=== PATIENT | male | born 1990 | race African-American/Black ===

== ENCOUNTER 2017-12-30 21:35 | Emergency (ER) | payer OTHER ==
[~2017-12-30] VITALS: Ht 170.2 cm; Wt 59.9 kg
[2017-12-30] MEDS ORDERED: MORPHINE SULFATE INJ 4 MG/ML INJ INJ PRN (22:00)
[2017-12-30] MEDS ORDERED: BELLADONNA ALK/PHENOBARBITAL 5 ML UDC PO ONE (22:00)
[2017-12-30] MEDS ORDERED: MAGNESIUM/ALUMINUM/SIMETHICONE 30 ML UDC PO ONE (22:00)
[2017-12-30] MEDS ORDERED: ONDANSETRON HCL 4 MG ORAL DISINTEGRATING TAB PO ONE (22:00)
[2017-12-30] MEDS ORDERED: METOCLOPRAMIDE HCL 10MG/10ML UDC GT ONE (22:15)
[2017-12-31 02:28] VITALS: BP 134/79
== END 2017-12-30 23:10 | disposition home or self-care (01) ==
LOC: FSED 21:35
DX: R10.13 Epigastric pain (principal); K29.00 Acute gastritis without bleeding
CPT/HCPCS: 99282

== ENCOUNTER 2020-08-26 14:28 | Emergency (ER) | payer BC, OTHER ==
[~2020-08-26] VITALS: Ht 170.2 cm; Wt 58.5 kg
[2020-08-26] MEDS ORDERED: LIDOCAINE VISC 2% SOLN 15 ML UDC TOP ONE (15:00)
[2020-08-26] MEDS ORDERED: LIDOCAINE VISC 2% SOLN 15 ML UDC ONE (15:08)
[2020-08-26] MEDS ORDERED: PREDNISONE20 MG PO (15:14)
--- NOTE | 2020-08-26 15:14 | Emergency Department Note ---
History of Present Illnes History of Present Illness Chief Complaint: increased rectal(fissure) pain s/p colonoscopy 2 days ago. History of Present Illness This is a 30 year old male. was doing well prior to this. h/o anal fissures, gerd. Historian: Patient Arrival Mode: Car History limited by: condition of the patient (normal) Oncology Rn Required: No Onset (how long ago): day(s) (2) Location: see above Quality: sharp Radiation: Reports non-radiation Severity: moderate Onset quality: gradual Duration (how long): day(s) Timing of current episode: constant Progression: unchanged Chronicity: recurrent Context: Denies recent illness, Denies recent surgery, Denies recent immobilization, Denies recent travel, Denies trauma/injury, Denies new medications, Denies hx of DVT/PE, Denies non-compliance w/ medications Relieving factors: none Exacerbating factors: none Associated symptoms: Reports denies other symptoms Treatments prior to arrival: none Past Medical/Family History Physician Review I have reviewed the patient's past medical and family history. Any updates have been documented here. Past Medical History Recent Fever: No Clinical Suspicion of Infectio: No New/Unexplained Change in Ment: No Other Medical History: migraines ANAL FISSURES CHRONIC GERD AND GASTRITIS Past Surgical History: Hernia Repair Other Surgery: testiculat tortion (removal of l testicle) l inguinal hernia repair Social History Smoking Cessation: Former smoker Alcohol Use: None Any Illegal Drug Use: No Family History Family history of heart diseas: No Other Last Tetanus: unknown Any Pre-Existing Lines (PICC,: No Review of Systems Review of Systems Constitutional: Reports no symptoms EENTM: Reports no symptoms Cardiovascular: Reports no symptoms Respiratory: Reports no symptoms Gastrointestinal: Reports as per HPI, Reports abdominal pain Genitourinary: Reports no symptoms Musculoskeletal: Reports no symptoms Integumentary: Reports no symptoms Neurological: Reports no symptoms Psychological: Reports no symptoms Endocrine: Reports no symptoms Hematological/Lymphatic: Reports no symptoms Review of other systems: All other systems negative Physical Exam Related Data Allergies: Coded Allergies: No Known Allergies (Unverified , 12/31/17) Triage Vital Signs Vital Signs Date Time Temp Pulse Resp B/P (MAP) Pulse Ox O2 Delivery O2 Flow Rate FiO2 08/26/20 14:42 98.8 87 16 128/89 98 Room Air Vital signs reviewed: Yes Physical Exam CONSTITUTIONAL Constitutional: Present well-developed, Present well-nourished HENT HENT: Present normocephalic, Present atraumatic, Present oropharynx clear/moist, Present nose normal HENT L/R: Present left ext ear normal, Present right ext ear normal EYES Eyes: Reports PERRL, Reports conjunctivae normal NECK Neck: Present ROM normal, Present supple PULMONARY Pulmonary: Present effort normal, Present breath sounds normal CARDIOVASCULAR Cardiovascular: Present regular rhythm, Present heart sounds normal, Present capillary refill normal, Present normal rate GASTROINTESTINAL Abdominal: Present soft, Present nontender, Present bowel sounds normal, Present other (+anal fissures posterior/anterior) GENITOURINARY Genitourinary: Present exam deferred SKIN Skin: Present warm, Present dry MUSCULOSKELETAL Musculoskeletal: Present ROM normal NEUROLOGICAL Neurological: Present alert, Present oriented x 3, Present no gross motor or sensory deficits PSYCHOLOGICAL Psychological: Present mood/affect normal, Present judgement normal Assessment & Plan Medical Decision Making MDM see above Reassessment Reassessment time: 14:50 Reassessment ecrease pain s/p medication Assessment & Plan Final Impression: (1) Anal fissure Depart Disposition: HOME, SELF-CARE Last Vital Signs Date Time Temp Pulse Resp B/P (MAP) Pulse Ox O2 Delivery O2 Flow Rate FiO2 08/26/20 14:42 98.8 87 16 128/89 98 Room Air Home Meds Active Scripts Prednisone (PREDNISONE) 20 Mg Tab, 60 MG PO DAILY PRN for MODERATE PAIN (4-6), #15 TAB TAKE ALL 3 20MG PILLS AT ONCE Prov:ROSITA MARQUEZ 08/26/20 Medications in the ED Lidocaine HCl 20 ml ONCE ONCE TOP Last administered on 08/26/20at 15:02; Admin Dose 20 ML; Start 08/26/20 at 15:00; Stop 08/26/20 at 15:01; Status DC Lidocaine HCl 30 ml STK-MED ONCE .ROUTE ; Start 08/26/20 at 15:08; Stop 08/26/20 at 15:03; Status DC ROSITA MARQUEZ Aug 26, 2020 15:14
--- OUTSIDE RECORDS SUMMARY | 2020-08-26 15:26 | XMS REPORT | Clinical Summary ---
Author Author [facility] Address Unknown Phone Unavailable Care Team Providers Care Community Support Worker Name Role Phone Tu Montero MD PCP Allergies Comments Active Allergy Reactions Severity Noted Date Aspirin Swelling 05/17/2020 Sucralfate Hives 05/17/2020 Medications End Date Status Medication Sig Dispensed Refills Start Date Active traMADoL (ULTRAM) 50 mg Take 50 mg by 0 tabletIndications: acute mouth every 6 pain (six) hours as needed for moderate pain .acute pain. 09/06/2020 Active pantoprazole (Protonix) Take 1 tablet 30 tablet 0 40 MG EC tablet (40 mg total) 0 by mouth daily for 30 days. 07/30/2020 ciprofloxacin (CIPRO) 500 Take 1 tablet 28 tablet 0 MG tablet (500 mg 0 total) by mouth 2 (two) times a day for 14 days. 08/10/2020 acetaminophen-codeine Take 1-2 15 tablet 0 (TYLENOL WITH CODEINE #3) tablets by 0 300-30 mg per mouth every 6 tabletIndications: acute (six) hours pain as needed for moderate pain for up to 3 days .acute pain. Active Problems Problem Noted Date GERD (gastroesophageal reflux disease) Encounters Care Team Description Date Type Specialty Tu Montero MD Incomplete defecation (Primary Dx) 08/26/2020 Transcribe Physical Therapy Orders Michelle Cat MD 08/17/2020 Anesthesia Gastroenterology Event Cristino Stacy MD EGD WITH ZAMORA 08/17/2020 Surgery Gastroenterology Cristino Stacy MD MOTILITY STUDY, ESOPHAGUS, USING MANOMET RY 08/17/2020 Surgery Gastroenterology Cristino Stacy MD Gastroesophageal reflux disease with eso phagitis, unspecified whether hemorrhage 08/17/2020 Hospital Gastroenterology Encounter 08/17/2020 Travel Cristino Stacy MD Gastroesophageal reflux disease, unspeci fied whether esophagitis present 08/13/2020 Lab Lab 08/13/2020 Travel Aminata Tolentino RN Gastroesophageal reflux disease, unspeci fied whether esophagitis present (Primary Dx) 08/12/2020 Orders Only Gastroenterology Salvatore Vines MD Bilateral flank pain (Primary Dx) 08/07/2020 Emergency Emergency Medicine 08/07/2020 Travel 07/31/2020 Travel Juan A Salvador III, MD Acute prostatitis (Primary Dx) 07/16/2020 Emergency Emergency Medicine 07/16/2020 Travel Oscar Lopez MD Gastroesophageal reflux disease with eso phagitis without hemorrhage (Primary Dx) 07/06/2020 Office Visit General Surgery 07/06/2020 Travel Oscar Lopez MD Reflux esophagitis 06/30/2020 Hospital Radiology Encounter 06/30/2020 Travel Kayla Priest MA Reflux esophagitis (Primary Dx) 06/24/2020 Orders Only General Surgery 06/24/2020 Travel 06/09/2020 Travel Shahla Kothari Jr., MD Gastritis without bleeding, unspecified chronicity, unspecified gastritis type (Primary Dx); Abdominal pain, unspecified abdominal location 05/17/2020 Emergency Emergency Medicine 05/17/2020 Travel after 08/26/2019 Surgical History Surgery Date Site/Laterality Comments REDUCTION, TORSION, TESTIS, SURGICAL HERNIA REPAIR MOTILITY STUDY, 08/17/2020 N/A Procedure: MOT ILITY STUDY, ESOPHAGUS, USING ESOPHAGUS, USING MANOMETRY; Surgeon: Cristino Cosme MD; MANOMETRY Location: [facility]; Service: Gastroenterology; Laterality: N/A; ESOPHAGOGASTRODUODENOSCOP 08/17/2020 Esophagus/Later Pro cedure: EGD WITH ZAMORA; Surgeon: Shakila Stacy (EGD) jas Rich MD; Location: [facility]; Service: Gastroenterology; Laterality: Lateral; Medical devices from this surgery are i n the Implants section. COLONOSCOPY 08/17/2020 N/A Procedure: COLO NOSCOPY; Surgeon: Cristino Stacy MD; Location: [facility]; Service: Gastroenterology; Laterality: N/A; Medical devices from this surgery are i n the Implants section. Medical History Medical History Date Comments Gastritis Gastric ulcer Anxiety GERD (gastroesophageal reflux disease) Testicular torsion Prostatitis Social History Date Tobacco Use Types Packs/Day Years Used Quit: 11/18/2017 Former Smoker Smokeless Tobacco: Former User Drinks/Week oz/Week Comments Alcohol Use Not Currently Sex Assigned at Date Recorded Not on file Industry Job Start Date Occupation Not on file Not on file Not on file Date Recorded COVID-19 Exposure Response 08/17/2020 5:52 AM PHYSICIAN INDUSTRIAL In the last month, have you been in contact with No / Unsure someone who was confirmed or suspected to have Coronavirus / COVID-19? Last Filed Vital Signs Reading Time Taken Comments Vital Sign 127/81 08/17/2020 10:45 AM PHYSICIAN INDUSTRIAL Blood Pressure 68 08/17/2020 10:45 AM PHYSICIAN INDUSTRIAL Pulse 36.5 C (97.7 F) 08/17/2020 9:00 AM PHYSICIAN INDUSTRIAL Temperature 15 08/17/2020 10:45 AM PHYSICIAN INDUSTRIAL Respiratory Rate 99% 08/17/2020 10:45 AM PHYSICIAN INDUSTRIAL Oxygen Saturation - - Inhaled Oxygen Concentration 58.5 kg (129 lb) 08/17/2020 8:29 AM PHYSICIAN INDUSTRIAL Weight 170.2 cm (5' 7") 08/17/2020 8:29 AM PHYSICIAN INDUSTRIAL Height 20.2 08/17/2020 8:29 AM PHYSICIAN INDUSTRIAL Body Mass Index Plan of Treatment Care Team Description Date Type Specialty Oscar Lopez MD [address] [facility] [address] [place] [address] 08/31/2020 Office Visit General Surgery Tu Montero MD [address] [place] [phone] Inocencia Wright, JEAN 09/22/2020 Office Visit Physical Therapy Health Maintenance Due Date Last Done Comments INFLUENZA VACCINE 05/02/2020 Implants Device Identifier Shelf Expiration Date Model / Serial / L ot Implanted Type Area Manufactur er 06/09/2021 FGS 0312 / / [id number] Capsule Ph W/ Ds Zamora - [id number] Surgical N/A: N/A GIVEN Implanted: Qty: 1 on 08/17/2020 at Implants; FEMI GING [facility] Expanders; Extenders; Surgical Wires Procedures Comments Procedure Name Priority Date/Time Associated Diag nosis SURGICAL PATHOLOGY Routine 08/17/2020 REQUEST 8:51 AM PHYSICIAN INDUSTRIAL COLONOSCOPY 08/17/2020 Gastroesophageal re flux 8:45 AM PHYSICIAN INDUSTRIAL disease with esophagitis, unspecified whether hemorrhage ESOPHAGOGASTRODUODENOSCOP 08/17/2020 Gastroesoph ageal reflux Y (EGD) 8:45 AM PHYSICIAN INDUSTRIAL disease with esopha gitis, unspecified whether hemorrhage MOTILITY STUDY, 08/17/2020 Gastroesophageal re flux ESOPHAGUS, USING 6:24 AM PHYSICIAN INDUSTRIAL disease with esopha gitis, MANOMETRY unspecified whether hemorrhage COVID-19 QUALITATIVE PCR Routine 08/13/2020 Gastr oesophageal reflux 4:13 PM PHYSICIAN INDUSTRIAL disease, unspecified whether esophagitis present CT ABDOMEN PELVIS W STAT 08/07/2020 CONTRAST 7:27 PM PHYSICIAN INDUSTRIAL ESTIMATED GFR STAT 08/07/2020 5:54 PM PHYSICIAN INDUSTRIAL URINALYSIS SCREEN AND Routine 08/07/2020 MICROSCOPY, WITH REFLEX 5:54 PM PHYSICIAN INDUSTRIAL TO CULTURE HC COMPLETE BLD COUNT STAT 08/07/2020 W/AUTO DIFF 5:54 PM PHYSICIAN INDUSTRIAL COMPREHENSIVE METABOLIC STAT 08/07/2020 PANEL 5:54 PM PHYSICIAN INDUSTRIAL URINE CULTURE Routine 08/07/2020 5:[address] ABDOMEN PELVIS W STAT 07/16/2020 CONTRAST 7:14 PM CDT URINALYSIS SCREEN AND STAT 07/16/2020 MICROSCOPY, WITH REFLEX 6:55 PM CDT TO CULTURE URINE CULTURE STAT 07/16/2020 6:55 PM CDT ESTIMATED GFR STAT 07/16/2020 5:59 PM CDT LACTIC ACID LEVEL, SEPSIS STAT 07/16/2020 - NOW AND REPEAT 2X EVERY 5:59 PM CDT 3 HOURS COMPREHENSIVE METABOLIC STAT 07/16/2020 PANEL 5:59 PM CDT HC COMPLETE BLD COUNT STAT 07/16/2020 W/AUTO DIFF 5:59 PM CDT FL MODIFIED BARIUM Routine 06/30/2020 Reflux esop hagitis SWALLOW 10:25 AM CDT URINE CULTURE STAT 05/17/2020 3:49 PM CDT URINALYSIS SCREEN AND STAT 05/17/2020 MICROSCOPY, WITH REFLEX 3:[address] TO [address] ABDOMEN PELVIS W STAT 05/17/2020 CONTRAST 2:38 PM CDT ESTIMATED GFR STAT 05/17/2020 1:51 PM CDT LIPASE LEVEL STAT 05/17/2020 1:51 PM CDT COMPREHENSIVE METABOLIC STAT 05/17/2020 PANEL 1:51 PM CDT HC COMPLETE BLD COUNT STAT 05/17/2020 W/AUTO DIFF 1:51 PM CDT after 08/26/2019 Results * Surgical pathology request (08/17/2020 8:51 AM PHYSICIAN INDUSTRIAL) [facility] DEPARTMENT OF PATHOLOGY AND GENOMIC MEDICINE Surgical See link below for PDF Lab [facility] pathology Report DEPARTMENT OF report PATHOLOGY AND GENOMIC MEDICINE Result status This is Final Report for [facility] [id number] DEPARTMENT OF PATHOLOGY AND GENOMIC MEDICINE Specimen Performing Organization Address City/State/ZIP Code P maria del carmen Number [facility] [place] [address] [place], [place] [address] PATHOLOGY AND GENOMIC MEDICINE * COVID-19 qualitative PCR (08/13/2020 4:13 PM PHYSICIAN INDUSTRIAL) Interpretation Negative results do not CRAW[place] preclude 2019-nCoV infection [facility] and should not be used as the HOSPITAL sole basis for treatment or other patient management decisions. Negative results must be combined with clinical observations, patient history, and epidemiological information. COVID-19 Not-Detected Not-Detected GHUL[facility] qualitative PCR [facility] result HOSPITAL COVID-19 See link below for PDF Lab [facility] qualitative PCR ReportComment: Case Number: [facility] [id number] HOSPITAL Specimen Nasopharyngeal swab Performing Organization Address [facility]/ZIP Code P maria del carmen Number [facility] DEPARTMENT OF [address] [place] [address] PATHOLOGY AND GENOMIC MEDICINE [facility] [address] [place] [address] [facility] * CT Abdomen Pelvis W Contrast (08/07/2020 7:27 PM PHYSICIAN INDUSTRIAL) Only the most recent of 3 results within the time period is included. Specimen Narrative Performed At EXAMINATION: CT ABDOMEN PELVIS W CONTRAST RAD[facility] NT CLINICAL HISTORY: abd pain TECHNIQUE: Multiple axial images of the abdomen and pelvis were obtained following intravenous administration of iodinated contrast. Sagittal and coronal computerized reformatted images were al so obtained. Radiation dose reduction technique was utilized. COMPARISON: 07/16/2020 IMPRESSION: Abdomen: 1. Liver, spleen, pancreas, adrenals, a nd kidneys are normal. 2.There is no retroperitoneal adenopath y or ascites. 3.There are no dilated or thickened loo ps of bowel. 4.Scans through the lung bases are norm al. Pelvis: 1. Again, the appendix is not clearly v isualized. No right lower quadrant inflammatory process is seen. 2.No pelvic mass, adenopathy, or fluid collection. [facility]-[id number] Procedure Note Hm Interface, Radiology Results Incoming - 08/07/2020 7:46 PM PHYSICIAN INDUSTRIAL EXAMINATION: CT ABDOMEN PELVIS W CONTRAST CLINICAL HISTORY: abd pain TECHNIQUE: Multiple axial images of the abdomen and pelvis were obtained following intravenous administration of iodinated contrast. Sagittal and coronal computerized reformatted images were also obtained. Radiation dose reduction technique was utilized. COMPARISON: 07/16/2020 IMPRESSION: Abdomen: 1. Liver, spleen, pancreas, adrenals, an d kidneys are normal. 2.There is no retroperitoneal adenopathy or ascites. 3.There are no dilated or thickened loop s of bowel. 4.Scans through the lung bases are mary l. Pelvis: 1. Again, the appendix is not clearly vi sualized. No right lower quadrant inflammatory process is seen. 2.No pelvic mass, adenopathy, or fluid c ollection. [facility]-[id number] Performing Organization Address [facility]/ZIP Code P maria del carmen Number [facility] [address] [place] [address] * Urinalysis screen and microscopy, with reflex to culture (08/07/2020 5:54 PM PHYSICIAN INDUSTRIAL) Only the most recent of 3 results within the time period is included. Specimen site Clean catch [facility] Color, UA Yellow [facility] Appearance, UA Clear [facility] Specific 1.023 1.001 - 1.030 [facility] gravity, UA [facility] pH, UA 6.0 5.0 - 9.0 [facility] Protein, UA Negative Negative [facility] Glucose, UA Negative Negative [facility] Ketones, UA Negative Negative [facility] Bilirubin, UA Negative Negative [facility] Blood, UA Negative Negative [facility] Nitrite, UA Negative Negative [facility] Urobilinogen, <2.0 <2.0 E.U./dL [facility] Leukocyte Negative Negative [facility] esterase, UA [facility] WBC, UA 1 0 - 1 /HPF [facility] RBC, UA 2 0 - 5 /HPF [facility] Bacteria, UA None seen None seen [facility] Yeast, UA None seen [facility] Yeast with None seen [facility] Specimen Urine Performing Organization Address [facility] P maria del carmen Number [address] [address] PATHOLOGY AND GENOMIC MEDICINE [facility] [id number] [place] [address] [facility] * Estimated GFR (08/07/2020 5:54 PM PHYSICIAN INDUSTRIAL) Only the most recent of 3 results within the time period is included. Estimated GFR >=90 mL/min/1.73 m2 [facility] Comment: [facility] Interpretation G1 >=90 Normal or high G2 60-89 Mildly decreased G3a 45-59 Mildly to moderately decreased G3b 30-44 Moderately to severely decreased G4 15-29 Severely decreased G5 <15 Kidney failure The eGFR was calculated using the Chronic Kidney Disease Epidemiology Collaboration (CKD-EPI) equation. Interpretation is based on recommendations of the National Kidney Foundation-Kidney Disease Outcomes Quality Initiative (NKF-KDOQI) published in 2014. Specimen Plasma Performing Organization Address City/State/ZIP Code P maria del carmen Number [address] [place], [place] [address] PATHOLOGY AND [facility] [id number] [place] [address] * CBC with platelet and differential (08/07/2020 5:54 PM PHYSICIAN INDUSTRIAL) Only the most recent of 3 results within the time period is included. WBC 5.1 4.5 - 11.0 k/uL [facility] RBC 4.54 4.40 - 6.00 m/uL [facility] HGB 14.1 14.0 - 18.0 g/dL [facility] HCT 41.0 41.0 - 51.0 % [facility] MCV 90.3 82.0 - 100.0 fL [facility] MCH 31.1 27.0 - 34.0 pg [facility] MCHC 34.4 31.0 - 37.0 g/dL [facility] RDW - SD 39.6 37.0 - 55.0 fL [facility] MPV 8.9 6.9 - 11.0 fL [facility] Platelet count 282 150 - 400 K/uL [facility] Nucleated RBC 0.00 /100 WBC [facility] Neutrophils 51.0 39.0 - 69.0 % [facility] Lymphocytes 36.1 25.0 - 45.0 % [facility] Monocytes 10.5 (H) 0.0 - 10.0 % [facility] Eosinophils 1.6 0.0 - 5.0 % [facility] Basophils 0.6 0.0 - 1.0 % [facility] Immature 0.2 0.0 - 1.0 % [facility] granulocytes [facility] Specimen Plasma Performing Organization Address City/State/ZIP Code P maria del carmen [place] [facility] [place] [place] [address] [place], [place] [address] PATHOLOGY AND [facility] [address] * Urine culture (08/07/2020 5:54 PM PHYSICIAN INDUSTRIAL) Only the most recent of 3 results within the time period is included. Urine culture SEE COMMENTComment: [facility] Bacteriuria screen negative. [facility] Specimen Performing Organization Address [facility] P maria del carmen Number [place] [phone] PATHOLOGY AND GENOMIC MEDICINE [address] * Comprehensive metabolic panel (08/07/2020 5:54 PM PHYSICIAN INDUSTRIAL) Only the most recent of 3 results within the time period is included. Sodium 135 135 - 148 mEq/L [facility] Potassium 3.6 3.5 - 5.0 mEq/L [facility] Chloride 98 98 - 112 mEq/L [facility] CO2 27 24 - 31 mEq/L [facility] Anion gap 10@ANIO 7 - 15 mEq/L [facility] BUN 15 6 - 20 mg/dL [facility] Creatinine 0.94 0.70 - 1.20 mg/dL [facility] Glucose 129 (H) 65 - 99 mg/dL [facility] Calcium 9.6 8.3 - 10.2 mg/dL [facility] Protein 7.3 6.3 - 8.3 g/dL [facility] Albumin 4.4 3.5 - 5.0 g/dL [facility] A/G ratio 1.5 0.7 - 3.8 [facility] Alkaline 73 40 - 129 U/L [facility] phosphatase [facility] AST 21 10 - 50 U/L [facility] ALT 19 5 - 50 U/L [facility] Total bilirubin 0.3 0.2 - 1.2 mg/dL [facility] Specimen Plasma Performing Organization Address [facility] P maria del carmen Number [place] [phone] PATHOLOGY AND GENOMIC MEDICINE [address] * Lactic acid level, SEPSIS - Now and repeat 2x every 3 hours (07/16/2020 5:59 PM CDT) Lactic acid 1.6 0.5 - 2.2 mmol/L [facility] Specimen Blood Performing Organization Address City/State/ZIP Code P maria del carmen Number [facility] [place] [address] [place], [place] [address] PATHOLOGY AND GENOMIC MEDICINE [facility] [address] [place] [address] [facility] * [place] Modified Barium Swallow (06/30/2020 10:25 AM CDT) Specimen Narrative Performed At EXAMINATION: [place] MODIFIED BARIUM SWALLOW [facility] CLINICAL HISTORY: K21.0 Gastro-esopha geal reflux disease with esophagitis, Esophageal reflux COMPARISON: None. TECHNIQUE: Esophagram was performed w ith effervescent granules and barium, as well as requested marshmallow and bagel consistencies in prone/ADORNO positioning. Fluoroscopy Time: 3.3 min Dose: 12 mGy IMPRESSION: 1. Swallow: Primary peristalsis is no rmal, with only a few disordered tertiary contractions. Esophagus was distensible . The mucosa and motility were within normal limits. There is no evidence of stricture. 2. Gastroesophageal junction: No evid ence of hiatal hernia. No radiographically apparent reflux with R AO positioning, or provocative cough/possible maneuvers. 3. Visualized portions of the stomach and proximal small bowel unremarkable. [id number] Procedure Note Interface, Radiology Results Incoming - 06/30/2020 11:34 AM CDT EXAMINATION: [place] MODIFIED BARIUM SWALLOW CLINICAL HISTORY: K21.0 Gastro-esophageal reflux disease with esophagitis, Esophageal reflux COMPARISON: None. TECHNIQUE: Esophagram was performed with effervescent granules and barium, as well as requested marshmallow and bagel consistencies in prone/ADORNO positioning. Fluoroscopy Time: 3.3 min Dose: 12 mGy IMPRESSION: 1. Swallow: Primary peristalsis is norm al, with only a few disordered tertiary contractions. Esophagus was distensible. The mucosa and motility were within normal limits. There is no evidence of stricture. 2. Gastroesophageal junction: No eviden ce of hiatal hernia. No radiographically apparent reflux with ADORNO positioning, or provocative cough/possible maneuvers. 3. Visualized portions of the stomach a nd proximal small bowel unremarkable. [id number] Performing Organization Address City/State/ZIP Code P maria del carmen Number [facility] [address] [place] [address] * Lipase level (05/17/2020 1:51 PM CDT) Lipase 31 13 - 60 U/L [facility] Specimen Blood Performing Organization Address City/State/ZIP Code P maria del carmen Number [facility] [place] [address] [facility] [place], [place] [address] PATHOLOGY AND GENOMIC MEDICINE [facility] [address] [facility] [place] [address] [facility] after 08/26/2019 Insurance Type Payer Benefit Subscriber ID Effective Phone Address Plan / Dates Group HMO BCBS [employer] [id number] 2020-P CT IN resent AREA/O BLUE ESSENTIALS Advance Directives For more information, please contact: [phone] Patient Sales Contracts Analyst Explanation Type Date Recorded Advance Directives, 02/15/2018 1:58 AM Living Will and Medical Power of Mail Clerks Supervisor
--- OUTSIDE RECORDS SUMMARY | 2020-08-26 15:27 | XMS REPORT | Clinical Summary ---
Author Author SHELLIE [facility] Address Unknown Phone Unavailable Care Team Providers Care Resident Intern Name Role Phone Sharpless PCP Allergies Comments Active Allergy Reactions Severity Noted Date Aspirin 06/25/2020 Sucralfate 06/25/2020 Hydrocodone Nausea And 05/25/2014 Vomiting Shellfish Containing Rash Low 5 Products Medications End Date Status Medication Sig Dispensed Refills Start Date 06/25/2020 Discontinued ranitidine (ZANTAC) 150 . 0 201 MG tablet 8 06/25/2020 Discontinued dicyclomine (BENTYL) 20 . 0 201 mg tablet 8 07/09/2020 omeprazole (PRILOSEC) 40 Take 1 28 capsule 0 0 MG capsule capsule (40 0 mg total) by mouth 2 (two) times daily for 14 days. Active Problems Not on file Encounters Care Team Description Date Type Specialty Channing Patiño III, DO Chronic GERD (Primary Dx) 06/25/2020 Emergency Emergency Medicine 06/25/2020 Travel after 08/26/2019 Social History Date Tobacco Use Types Packs/Day Years Used Former Smoker 0.5 2.5 Smokeless Tobacco: Never Used Tobacco Cessation: Ready to Quit: No; Co unseling Given: Yes Drinks/Week oz/Week Comments Alcohol Use No Sex Assigned at Date Recorded Not on file Last Filed Vital Signs Reading Time Taken Comments Vital Sign 138/96 06/25/2020 8:53 PM CDT Blood Pressure 69 06/25/2020 8:53 PM CDT Pulse 36.3 C (97.3 F) 06/25/2020 8:53 PM CDT Temperature 18 06/25/2020 8:53 PM CDT Respiratory Rate 98% 06/25/2020 8:53 PM CDT Oxygen Saturation - - Inhaled Oxygen Concentration 56.7 kg (125 lb) 06/25/2020 8:53 PM CDT Weight 170.2 cm (5' 7") 06/25/2020 8:53 PM CDT Height 19.58 06/25/2020 8:53 PM CDT Body Mass Index Plan of Treatment Health Maintenance Due Date Last Done Comments INFLUENZA VACCINE (#1) 2020 Results Not on fileafter 08/26/2019 Insurance Type Payer Benefit Subscriber ID Effective Phone Address Plan / Dates Group HMO/POS BLUE CROSS/BLUE SHIELD BCBS HMO [id number] 2020-P [address] [place] [phone]
--- OUTSIDE RECORDS SUMMARY | 2020-08-26 15:27 | XMS REPORT | Continuity of Care Document ---
Author Author Orville Fred OSCAR Harman Organization [employer] Address Unknown Phone Unavailable Care Team Providers Care Securities Vault Supervisor Name Role Phone [employer] Unavailable Un available Problems Problem Status Onset Date Classification Date Reported Comments Source Other specified diseases of anus and rectum 08/09/2020 08/12/2020 [facility] BLADDER ISSUES Active 08/09/2020 [facility] Fred PELVIC Active 07/08/2020 [facility] [place] Acute pharyngitis, unspecified 05/20/2020 05/22/2020 [facility] OTHER Active 05/20/2020 [facility] Unspecified abdominal pain 05/10/2020 05/12/2020 [place],[facility] Acute gastritis without bleeding 05/10/2020 05/12/2020 [facility] CHEST PAIN Active 05/10/2020 [facility] Tinea unguium 09/11/2019 09/13/2019 [place] NAUSEA Active 09/11/2019 [facility] Cellulitis of right toe 09/04/2019 09/06/2019 [facility] FOOT PAIN Active 09/04/2019 [facility] Other chest pain 06/12/2019 06/14/2019 [facility] Scrotal pain 04/07/2018 04/10/2018 [facility] KIDNEY PAIN/ PELVIC Active 04/07/2018 [facility] Fred ABDOMINAL PAIN Active 03/23/2018 [place] Headache 04/07/2018 [place] ABD PAIN Active 12/30/2017 [place] PELVIC PAIN Active 01/05/2016 [place] NECK PAIN Active 07/11/2014 [facility] Discharge Diagnosis: Muscle spasm 07/11/2014 07/14/2014 [facility] Discharge Diagnosis: Acute neck pain 07/11/2014 07/14/2014 [facility] WEAKNESS Active 02/14/2013 [facility] WOUND CHECK Active 11/19/2012 [facility] ABSCESS Active 11/15/2012 [facility] SPIDER BITE ON RT THIGH,HEADACHES Active 02/08/2012 [facility] TOOTH PAIN Active 08/29/2011 [facility] Kidney stone (disorder) Resolv ed Problem [facility] ,[facility] Migraine (disorder) Resolved Problem 08/24/2020 [facility] ,[facility], [facility] Upper abdominal pain, unspecified 04/07/2018 [facility] Gastroesophageal reflux disease with eso phagitis (disorder) Resolved Pr oblem 08/24/2020 [facility] Medications Medication Details Route Status Patient Instructions Ordering Provider Order Date Source POLYETHYLENE GLYCOL 3350 142 MG/ML Oral Solution [Miralax] 17 gm, PO, Daily, dissolve in water or j uice 8 0z, X 15 day, # 255 gm, 0 Refill(s), Pharmacy: [facility] #[id number], 170.18, cm, 08/11/20 15:27:00 [employer], Height, 58.636, kg, 08/11/20 15:27:00 [employer], Weight Active 08/11/2020 [facility] Docusate Sodium 100 MG Oral Capsule 100 mg = 1 cap, PO, BID, # 60 cap, 0 Refill(s), Pharmacy: [facility] #[id number], 170.18, cm, 08/11/20 15:27:00 [employer], Height, 58.636, kg, 08/11/20 15:27:00 [employer], Weight Active 08/11/2020 [facility] Famotidine 20 MG Oral Tablet [Pepcid] 20 mg = 1 tab, PO, BID, # 28 tab, 0 Refill(s) Active 08/10/2020 [facility] ciprofloxacin 500 mg oral tablet 500 mg = 1 tab, PO, Q12H, X 10 day, # 20 tab, 0 Refill(s), 170.18, cm, 08/09/20 18:02:00 [employer], Height, 54.6, kg, 08/09/20 18:02:00 [employer], Weight Active 08/10/2020 [facility] Metronidazole 500 MG Oral Tablet [Flagyl] 500 mg = 1 tab, PO, Q8H, X 10 day, # 30 tab, 0 Refill(s), 170.18, cm, 08/09/20 18:02:00 [employer], Height, 54.6, kg, 08/09/20 18:02:00 [employer], Weight Active 08/10/2020 [facility] tramadol hydrochloride 50 MG Oral Tablet 50 mg = 1 tab, PO, Q6H, X 5 day, # 12 tab, 0 Refill(s) Active 08/10/2020 [facility] Morphine Notes: (Same as:MORPh ine Sulfate) Inactive 08/10/2020 [facility] Zofran Notes: (Same as: Zofran ) MEDICATION WASTE Product Size: 4 mg Product Wasted: ___ mg Inactive 08/10/2020 [facility] Sodium Chloride 0.9% (Bolus) IV 1,000 mL, 1000 ml/hr, Infuse Over: 1 hr, Route: IV, 1,000, Drug form: INJ, ONCE, Priority: STAT, Dosing Weight 54.6 kg, Start date: 08/09/20 21:36:00 [employer], Stop date: 08/09/20 21:36:00 [employer]ER, 0 Inactive 08/10/2020 [facility] Hydrocortisone 25 MG/ML Topical Cream [Anusol HC] 1 appl, [place], BID, X 14 day, # 30 gm, 0 Refill(s), Pharmacy: [facility] #[id number], 170.18, cm, 07/08/20 11:35:00 CDT, Height, 56.818, kg, 07/08/20 11:35:00 CDT, Weight Active 07/08/2020 [facility] ciprofloxacin 500 mg oral tablet 500 mg = 1 tab, PO, Q12H, # 14 tab, 0 Refill(s) Active 07/08/2020 [facility] tramadol hydrochloride 50 MG Oral Tablet 50 mg = 1 tab, PO, Q6H, PRN Pain, # 40 tab, 0 Refill(s) Active 07/08/2020 [facility] Fluzone Preservative-Free Quadrivalent i ntramuscular suspension / = 9 years; refer to adult dosing Inactive 06/15/2020 [facility] pantoprazole 40 mg oral enteric coated tablet 0 Refill(s) Active 06/15/2020 [facility] Famotidine 40 MG Oral Tablet 0 Refill(s) Active 06/15/2020 [facility] Famotidine 20 MG Oral Tablet 2 0 mg = 1 tab, PO, BID, # 28 tab, 0 Refill(s) Active 05/20/2020 [facility] omeprazole 40 mg oral delayed release capsule 40 mg = 1 cap, PO, BID, # 60 cap, 1 Refill(s), Pharmacy: [facility] #[id number], 165.1, cm, 05/15/20 11:23:00 CDT, Height, 57.017, kg, 05/15/20 11:23:00 CDT, Weight Active 05/15/2020 [facility] dicyclomine 20 mg oral tablet 20 mg = 1 tab, PO, TID- Before Meals, # 30 tab, 0 Refill(s), Pharmacy: [facility] #[id number], 165.1, cm, 05/15/20 11:23:00 CDT, Height, 57.017, kg, 05/15/20 11:23:00 CDT, Weight Active 05/15/2020 [facility] omeprazole 40 mg oral delayed release capsule ce, PO, Daily, # 30 cap, 0 Refill(s) Inactive 05/15/2020 [facility] cimetidine 400 mg oral tablet 400 mg = 1 tab, PO, BID, # 180 tab, 0 Refill(s) Active 05/15/2020 [facility] Famotidine 40 MG Oral Tablet [Pepcid] 40 mg = 1 tab, PO, Daily, # 30 tab, 0 Refill(s) Active 05/10/2020 [facility] Al hydroxide/Mg hydroxide/simethicone Notes: (aluminum hydroxide-magnesium hyd-simethicone [phone]/5ml 30 ml ud LISSA) Inactive 05/10/2020 [facility] Xylocaine Viscous 2% mucous membrane solution Notes: (Same as: Xylocaine) Inactive 05/10/2020 [facility] GI cocktail (aluminum hydroxide/magnesiu m hydroxide/lidocaine/simethicone) 45 mL, Route: PO, Dosing Weight 68.182, kg, ONCE, STAT, Start date: 05/10/20 17:25:00 CDT, Stop date: 05/10/20 17:25:00 CDT Inactive 05/10/2020 [facility] Pepcid Notes: (Same as: Pepcid ) Can be dilute in 5-10cc NS IVP: Slow IV push over at least 2 minutes. Inactive 05/10/2020 [facility] Bentyl Notes: (Same as: Bentyl) Inactive 05/10/2020 [facility] Zofran Notes: (Same as: Zofran ) MEDICATION WASTE Product Size: 4 mg Product Wasted: ___ mg Inactive 05/10/2020 [facility] Al hydroxide/Mg hydroxide/simethicone Notes: (aluminum hydroxide-magnesium hyd-simethicone [phone]/5ml 30 ml ud LISSA) Inactive 05/10/2020 [facility] Xylocaine Viscous 2% mucous membrane solution Notes: (Same as: Xylocaine) Inactive 05/10/2020 [facility] GI cocktail (aluminum hydroxide/magnesiu m hydroxide/lidocaine/simethicone) 45 mL, Route: PO, Dosing Weight 62.727, kg, ONCE, STAT, Start date: 05/10/20 16:43:00 CDT, Stop date: 05/10/20 16:43:00 CDT Inactive 05/10/2020 [facility] Ibuprofen 600 mg, Route: PO, O NCE, Dosing Weight 62.727, kg, Priority: STAT, Start date: 09/11/19 12:39:00 [employer] ENGINEER, Stop date: 09/11/19 12:39:00 [employer]INEER Inactive 09/11/2019 [facility] Fluconazole 150 MG Oral Tablet [Diflucan] 150 mg = 1 tab, PO, qWeek, 150 mg once weekly for four weeks, # 4 tab, 0 Refill(s) Active 09/04/2019 [facility] Cephalexin 500 MG Oral Capsule [Keflex] 500 mg = 1 cap, PO, BID, X 7 day, # 14 cap, 0 Refill(s) Active 09/04/2019 [facility] cyclobenzaprine 10 mg oral tablet 10 mg = 1 tab, PO, TID, PRN for spasms, X 10 day, # 30 tab, 0 Refill(s) Active 06/12/2019 [facility] Sodium Chloride 0.9% (Bolus) IV 1,000 mL, Infuse Over: 1 hr, Route: IV, ONCE, Priority: STAT, Dosing Weight 63.636 kg, Start date: 06/12/19 14:28:00 CDT, Stop date: 06/12/19 14:28:00 CDT Inactive 06/12/2019 [facility] Acetaminophen 650 mg, Route: P O, Drug form: TAB, ONCE, Dosing Weight 63.636, kg, Priority: STAT, Start date: 06/12/19 14:28:00 CDT, Stop date: 06/12/19 14:28:00 CDT Inactive 06/12/2019 [facility] tramadol hydrochloride 50 MG Oral Tablet 50 mg = 1 tab, PO, Q6H, PRN Pain, X 10 day, # 40 tab, 0 Refill(s) Active 04/08/2018 [facility] Fentanyl Notes: (Same as: Subl imaze) Preservative free. Inactive 04/08/2018 [facility] Ondansetron Notes: (Same as: Nancy myles) MEDICATION WASTE Product Size: 4 mg Product Wasted: ___ mg Inactive 04/07/2018 [facility] Ketorolac 4 days MEDICA TION WASTE Product Size: 30 mg Product Wasted: ___ mg Inactive 04/07/2018 [facility] Saline Flush 0.9% Notes: (Same as: BD Posiflush) Inactive 04/07/2018 [facility] Sodium Chloride 0.9% (Bolus) IV 1,000 mL, 1000 ml/hr, Infuse Over: 1 hr, Route: IV, 1,000, Drug form: INJ, ONCE, Priority: STAT, Dosing Weight 61.364 kg, Start date: 04/07/18 17:56:00 CDT, Stop date: 04/07/18 17:56:00 CDT Inactive 04/07/2018 [facility] tramadol hydrochloride 50 MG Oral Tablet 50 mg = 1 tab, PO, Q6H, PRN Pain, X 10 day, # 40 tab, 0 Refill(s) Active 04/06/2018 [facility] pantoprazole 40 mg oral enteric coated tablet 40 mg = 1 tab, PO, Daily, # 90 tab, 1 Refill(s), Pharmacy: [id number] Active 02/23/2018 [facility] benzonatate 200 MG Oral Capsule [Tessalon] 200 mg = 1 cap, PO, TID, X 7 day, # 21 cap, 0 Refill(s), Pharmacy: [facility] [id number] Active 02/23/2018 [facility] Fluticasone propionate 0.05 MG/ACTUAT Me tered Dose Nasal [place] [Flonase] 1 spray, NASAL, BID, in each nostril, # 16 gm, 1 Refill(s), Pharmacy: [facility] [id number] Active 02/23/2018 [facility] Ranitidine 150 MG Oral Tablet 150 mg = 1 tab, PO, BID, # 60 tab, 0 Refill(s) Active 02/23/2018 [facility] pantoprazole 40 mg oral enteric coated tablet 40 mg = 1 tab, PO, Daily, # 30 tab, 0 Refill(s) Inactive 02/23/2018 [facility] dicyclomine 20 mg oral tablet 40 mg = 2 tab, PO, BID, 0 Refill(s) Active 02/23/2018 [facility] tramadol hydrochloride 50 MG Oral Tablet 50 mg = 1 tab, PO, Q6H, PRN Pain, # 40 tab, 0 Refill(s) Active 02/23/2018 [facility] Reglan Notes: (Same as: Almas) No Longer Active 12/31/2017 [facility] Sodium Chloride 0.9% (Bolus) IV 1,000 mL, 1000 ml/hr, Infuse Over: 1 hr, Route: IV, 1,000, Drug form: INJ, ONCE, Priority: STAT, Dosing Weight 62.727 kg, Start date: 12/30/17 19:32:00 CDT, Stop date: 12/30/17 19:32:00 CDT No Longer Active 12/31/2017 [facility] Cyclobenzaprine hydrochloride 10 MG Oral Tablet [Flexeril] 10 mg, PO, TID, Muscle Spasm, # 30 tab, 0 Refill(s) Active 07/11/2014 [facility] Ibuprofen 600 MG Oral Tablet [Motrin] Special Instructions: take with food Active 07/11/2014 [facility] Zofran ODT 4 mg oral tablet, disintegrating 4 mg, 1 tab, PO, BID, PRN, Dissolve tab under tongue, 10 tab, Nausea and Vomiting, Substitution AllowedDissolve tab under tongue PO Active Vake y 02/14/2013 [facility] Sodium Chloride 0.9% (Bolus) IV 1000 mL 1,000 mL, Rate: 1,000 ml/hr, Infuse over: 1 hr, Route: IV, Dosing Weight 65.909 kg, Total Volume: 1,000, Priority: STAT, Start date: 02/14/13 13:28:00, Duration: 1 doses or times, Stop date: 02/14/13 14:27:00 IV No Longer Active [facility] 02/14/2013 [facility] Saline Flush 0.9% 5 mL, Route: IVP, Drug Form: INJ, Dosing Weight 65.909, kg, PRN, PRN Line Flush, Start date: 02/14/13 13:28:00, Duration: 24 hr, Stop date: 02/15/13 13:27:00 IVP No Longer Active [facility] 02/14/2013 [facility] ondansetron 4 mg, Route: IVP, ONCE, Dosing Weight 65.909, kg, Priority: STAT, Start date: 02/14/13 13:28:00, Stop date: 02/14/13 13:28:00 IVP No Longer Active [facility] 02/14/2013 [facility] Ultram 50 mg oral tablet 100 m g, 2 tab, PO, Q6H, PRN, 20 tab, pain, Substitution Allowed PO Active Leonidas aguilar 11/15/2012 [facility] Bactrim oral tablet 1 tab, PO, BID, 20 tab, Substitution Allowed, Maintenance PO Active Porfirio 11/15/2012 [facility] [place] 5/325 oral tablet 2 tab, Route: PO, Dosing Weight 65.909, kg, ONCE, STAT, Start date: 11/15/12 14:08:00, Stop date: 11/15/12 14:08:00 PO No Longer Active [facility] 11/15/2012 [facility] [place] 5/325 oral tablet 1-2 ta b, PO, Q4-6H, PRN, 12 tab, Pain, Substitution Allowed, Maintenance PO Active Tona amayao 02/12/2012 [facility] Ce [facility]ter [place] 5/325 oral tablet 1 tab, PO, Q4H, PRN, 10 tab, for pain, Substitution Allowed, Maintenance, TAB PO Active [facility] 02/09/2012 [facility] Bactrim DS oral tablet 1 tab, PO, BID, 14 tab, Substitution Allowed, Maintenance PO Active [facility] 02/09/2012 [facility] Ce [facility]ter amoxicillin 500 mg oral capsule 500 mg, 1 cap, PO, BID, 14 cap, Substitution Allowed, CAP PO No Longer Active Scott 08/30/2011 [facility] Unknown Home Medication Substi tution Allowed, AntibioticsAntibiotics Active 08/30/2011 [facility] [place] 5/325 oral tablet 1 tab, PO, Q4H, PRN, 15 tab, for pain, Substitution Allowed, Maintenance, TAB PO Active Scott 08/30/2011 [facility] ntrussell [place] 5/325 oral tablet 2 tab, Route: PO, Drug Form: TAB, ONCE, Start date: 08/30/11 4:55:00, Stop date: 08/30/11 4:55:00 PO No Longer Active [facility] 2010 [facility] Allergies, Adverse Reactions, Alerts Substance Category Reaction Severity Reaction type Status Date Reported Comments Source Carafate<sup>1</sup> Assertion Mild Drug allergy Active [facility] aspirin Assertion Drug allergy Active [facility] Food Eggs Assertion Food allergy Active [facility] Immunizations Immunization Date Given Site Status Last Updated Comments Source influenza virus vaccine, inactivated<sup>1</sup> 06/15/2020 Right Deltoid completed [place] Result Comment: Patient waited 15 minutes in the office with no reactions. [facility] Results Order Name Results Value Reference Range Date Interpretation Comments Source CHEM PANEL Glucose Lvl 83 70 - 99 08/10/2020 [place] CHEM PANEL BUN 13 7 - 22 08/10/2020 [place] CHEM PANEL Creatinine Lvl 0.94 0.50 - 1.40 08/10/2020 [place] CHEM PANEL Sodium Lvl 138 135 - 145 08/10/2020 [place] CHEM PANEL Potassium Lvl 4.0 3.5 - 5.1 08/10/2020 [place] CHEM PANEL Chloride Lvl 102 95 - 109 08/10/2020 [place] CHEM PANEL CO2 32 24 - 32 08/10/2020 [place] CHEM PANEL Calcium Lvl 9.3 8.5 - 10.5 08/10/2020 [place] CHEM PANEL Total Protein 7.8 6.4 - 8.4 08/10/2020 [place] CHEM PANEL Albumin Lvl 3.8 3.5 - 5.0 08/10/2020 [place] CHEM PANEL ALT 24 0 - 65 08/10/2020 [place] CHEM PANEL AST 15 0 - 37 08/10/2020 [place] CHEM PANEL Alk Phos 71 39 - 136 08/10/2020 [place] CHEM PANEL Bili Total 0.2 0.2 - 1.3 08/10/2020 [facility] [place] CHEM PANEL AGAP 8.0 10.0 - 20.0 08/10/2020 [facility] CHEM PANEL B/C Ratio 14 6 - 25 08/10/2020 [facility] CHEM PANEL Globulin 4.0 2.7 - 4.2 08/10/2020 [facility] CHEM PANEL A/G Ratio 1.0 0.7 - 1.6 08/10/2020 [facility] CHEM PANEL eGFR 125 08/10/2020 Result Comment: The eGFR is calculated using the CKD-EPI formula. In most young, healthy individuals the eGFR will be >90 mL/min/1.73m2. The eGFR declines with age. An eGFR of 60-89 may be normal in some populations, particularly the elderly, for whom the CKD-EPI formula has not been extensively validated. Use of the eGFR is not recommended in the following populations:

Individuals with unstable creatinine concentrations, including patients and those with serious co-morbid conditions.

Patients with extremes in muscle mass or diet.

The data above are obtained from the National Kidney Disease Education Program (NKDEP) which additionally recommends that when the eGFR is used in patients with extremes of body mass index for purposes of drug dosing, the eGFR should be multiplied by the estimated BMI. [facility] CHEM PANEL Lipase Lvl 135 73 - 393 08/10/2020 [facility] HEMATOLOGY WBC 4.0 3.7 - 10.4 08/10/2020 [facility] HEMATOLOGY RBC 4.60 4.70 - 6.10 08/10/2020 [facility] HEMATOLOGY Hgb 14.4 14.0 - 18.0 08/10/2020 [facility] HEMATOLOGY Hct 42.0 42.0 - 54.0 08/10/2020 [facility] HEMATOLOGY MCV 91.4 80.0 - 94.0 08/10/2020 [facility] HEMATOLOGY MCH 31.4 27.0 - 31.0 08/10/2020 [facility] HEMATOLOGY MCHC 34.4 32.0 - 36.0 08/10/2020 [facility] HEMATOLOGY RDW 13.3 11.5 - 14.5 08/10/2020 [facility] HEMATOLOGY Platelet 267 133 - 450 08/10/2020 [facility] HEMATOLOGY MPV 6.6 7.4 - 10.4 08/10/2020 [facility] HEMATOLOGY Segs 33.8 45.0 - 75.0 08/10/2020 [facility] HEMATOLOGY Lymphocytes 47.0 20.0 - 40.0 08/10/2020 [facility] HEMATOLOGY Monocytes 15.2 2.0 - 12.0 08/10/2020 [facility] HEMATOLOGY Eosinophils 3.2 0.0 - 4.0 08/10/2020 [facility] HEMATOLOGY Basophils 0.8 0.0 - 1.0 08/10/2020 [facility] HEMATOLOGY Neutrophils # 1.3 1.5 - 8.1 08/10/2020 [facility] HEMATOLOGY Lymphocytes # 1.9 1.0 - 5.5 08/10/2020 [facility] HEMATOLOGY Monocytes # 0.6 0.0 - 0.8 08/10/2020 [facility] HEMATOLOGY Eosinophils # 0.1 0.0 - 0.5 08/10/2020 [facility] URINE AND STOOL UA Color Yellow *NA* (08/09/20 8:36 PM) Yellow 08/10/2020 [facility] URINE AND STOOL UA Turbidity Clear (08/09/20 8:36 PM) Clear 08/10/2020 [facility] URINE AND STOOL UA Spec Grav 1.019 <=1.030 08/10/2020 [facility] URINE AND STOOL UA pH 6.0 5.0 - 8.0 08/10/2020 [facility] URINE AND STOOL UA Protein Negative mg/dL Negative mg/dL 08/10/[facility]A Glucose Negative mg/dL Negative mg/dL 08/10/2020 [facility] URINE AND STOOL UA Ketones Negative mg/dL Negative mg/dL 08/10/2020 [facility] URINE AND STOOL UA Bili Negative *NA* (08/09/20 8:36 PM) Negative 08/10/2020 [facility] URINE AND STOOL UA Blood Negative (08/09/20 8:36 PM) Negative 08/10/2020 [facility] URINE AND STOOL UA Nitrite Negative (08/09/20 8:36 PM) Negative 08/10/2020 [facility] URINE AND STOOL UA Leuk Est Negative (08/09/20 8:36 PM) Negative 08/10/2020 [facility] URINE AND STOOL UA Sq Epi Occasional /LPF Few /LPF 08/10/2020 [facility] URINE AND STOOL UA WBC 1 0 - 5 08/10/2020 [facility] URINE AND STOOL UA RBC 1 0 - 2 08/10/2020 [facility] URINE AND STOOL UA Mucus Few /LPF None Seen /LPF 08/10/2020 [facility] URINE AND STOOL UA Urobilinogen <=1.0 mg/dL 0.1 - 1.0 08/10/2020 [facility] d CHEM PANEL Glucose Lvl 86 65 - 99 06/15/2020 Result Comment:
Fasting reference interval

Lab test performed by:
[facility]
[address]
[place] [address]
[facility] CHEM PANEL BUN 15 7 - 25 06/15/2020 [facility] CHEM PANEL Creatinine Lvl 1.00 0.60 - 1.35 06/15/2020 [facility] CHEM PANEL eGFR NON-AFR. ARMENIAN 10 1 > OR = 60 mL/min/1.73m2 2019 [facility] CHEM PANEL eGFR 117 > OR = 60 mL/min/1.73m2 2019 [facility] CHEM PANEL B/C Ratio NOT A PPLICABLE 6 - 22 06/15/2020 [facility] CHEM PANEL Sodium Lvl 138 135 - 146 06/15/2020 [facility] CHEM PANEL Potassium Lvl 4.0 3.5 - 5.3 06/15/2020 [facility] CHEM PANEL Chloride Lvl 101 98 - 110 06/15/2020 [facility] CHEM PANEL CO2 31 20 - 32 06/15/2020 [facility] CHEM PANEL Calcium Lvl 9.8 8.6 - 10.3 06/15/2020 [facility] CHEM PANEL Total Protein 7.3 6.1 - 8.1 06/15/2020 [facility] CHEM PANEL Albumin Lvl 4.8 3.6 - 5.1 06/15/2020 [facility] CHEM PANEL Globulin 2.5 1.9 - 3.7 06/15/2020 [facility] CHEM PANEL A/G Ratio 1.9 1.0 - 2.5 06/15/2020 [facility] CHEM PANEL Bili Total 0.4 0.2 - 1.2 06/15/2020 [facility] CHEM PANEL Alk Phos 53 36 - 130 06/15/2020 [facility] CHEM PANEL ASPARTATE TRANSAMINASE 14 10 - 40 06/15/2020 [facility] CHEM PANEL ALANINE AMINOTRANSFERASE 10 9 - 46 06/15/2020 [facility] HEMATOLOGY WBC X 10x3 4.5 3.8 - 10.8 06/15/2020 Result Comment:
Lab test perf ormed by:
[facility]
[address]
[place] [address]
[facility] HEMATOLOGY RBC X 10x6 4.39 4.20 - 5.80 06/15/2020 [facility] HEMATOLOGY Hgb 13.6 13.2 - 17.1 06/15/2020 [facility] HEMATOLOGY Hct 40.4 38.5 - 50.0 06/15/2020 [facility] HEMATOLOGY MCV 92.0 80.0 - 100.0 06/15/2020 [facility] HEMATOLOGY MCH 31.0 27.0 - 33.0 06/15/2020 [facility] HEMATOLOGY MCHC 33.7 32.0 - 36.0 06/15/2020 [facility] HEMATOLOGY RDW 13.3 11.0 - 15.0 06/15/2020 [facility] HEMATOLOGY Platelet 274 140 - 400 06/15/2020 [facility] HEMATOLOGY MPV 9.3 7.5 - 12.5 06/15/2020 [facility] HEMATOLOGY Neutrophils # 1908 1500 - 7800 06/15/2020 [facility] HEMATOLOGY Lymphocytes # 1895 850 - 3900 06/15/2020 [facility] HEMATOLOGY Monocytes # 576 200 - 950 06/15/2020 [facility] HEMATOLOGY Eosinophils # 81 15 - 500 06/15/2020 [facility] HEMATOLOGY Basophils # 41 0 - 200 06/15/2020 [facility] HEMATOLOGY Segs 42.4 06/15/2020 [facility] HEMATOLOGY Lymphocytes 42.1 06/15/2020 [facility] HEMATOLOGY Monocytes 12.8 06/15/2020 [facility] HEMATOLOGY Eosinophils 1.8 06/15/2020 [facility] HEMATOLOGY Basophils 0.9 06/15/2020 [facility] LIPIDS Chol 125 <200 mg/dL 06/15/2020 Result Comment:
Lab test performed by:
[facility]
[address]
[place] [address]
[facility] LIPIDS HDL 46 > OR = 40 mg/dL 06/15/2020 [facility] LIPIDS Trig 51 <150 mg/dL 06/15/2020 [facility] LIPIDS LDL (Calculated) 66 06/15/2020 Result Comment: Reference range: <100

Desirable range <100 mg/dL for primary prevention;
<70 mg/dL for patients with CHD or diabetic patients
with > or = 2 CHD risk factors.

LDL-C is now calculated using the Vijaya
calculation, which is a validated novel method providing
better accuracy than the Friedewald equation in the
estimation of LDL- C.
Carlton MEJIA et al. SUSY. 2013;310(19): 2439-9390
(http://education.[employer].GardenStory/faq/PYO405) [facility] LIPIDS CHD Risk 2.7 <5.0 (CALC) 06/15/2020 [facility] LIPIDS Non HDL Chol 79 <130 mg/dL 06/15/2020 Result Comment: For patients with diabet es plus 1 major ASCVD risk
factor, treating to a non-HDL-C goal of <100 mg/dL
(LDL-C of <70 mg/dL) is considered a therapeutic
option. [facility] SPECIAL CHEMISTRY Hgb A1C 5.4 <5.7 % 06/15/2020 Result Comment: For the purpose of thomase sarai for the presence of
diabetes:

<5.7% Consistent with the absence of diabetes
5.7-6.4% Consistent with increased risk for diabetes
(prediabetes)
> or =6.5% Consistent with diabetes

This assay result is consistent with a decreased risk
of diabetes.

Currently, no consensus exists regarding use of
hemoglobin A1c for diagnosis of diabetes in children.

According to [place] [employer] (ADA)
guidelines, hemoglobin A1c <7.0% represents optimal
control in non- diabetic patients. Different
metrics may apply to specific patient populations.
Standards of Medical Care in Diabetes(ADA).

Lab test performed by:
[facility]
[address]
[place] [address]
[facility] RAPID Grp A Strep Scr Negative (05/10/20 5:03 PM) Negative 05/10/2020 [facility] CHEM PANEL Magnesium Lvl 2.1 1.8 - 2.4 06/12/2019 [facility] CARDIAC ENZYMES Troponin-I <0.02 0.00 - 0.40 06/12/2019 [facility] CHEM PANEL Lipase Lvl 101 73 - 393 06/12/2019 [facility] ELECTROLYTES AGAP 9.2 10.0 - 20.0 06/12/2019 [facility] ELECTROLYTES B/C Ratio 13 6 - 25 06/12/2019 [facility] ELECTROLYTES Globulin 3.5 2.7 - 4.2 06/12/2019 [facility] ELECTROLYTES A/G Ratio 1.2 0.7 - 1.6 06/12/2019 [facility] ELECTROLYTES Glucose Lvl 82 70 - 99 06/12/2019 [facility] ELECTROLYTES BUN 12 7 - 22 06/12/2019 [facility] ELECTROLYTES Creatinine Lvl 0.9 1 0.50 - 1.40 06/12/2019 [facility] ELECTROLYTES Sodium Lvl 136 135 - 145 06/12/2019 [facility] ELECTROLYTES Potassium Lvl 4.2 3.5 - 5.1 06/12/2019 [facility] ELECTROLYTES Chloride Lvl 104 95 - 109 06/12/2019 [facility] ELECTROLYTES CO2 27 24 - 32 06/12/2019 [facility] ELECTROLYTES Calcium Lvl 8.9 8.5 - 10.5 06/12/2019 [facility] ELECTROLYTES Total Protein 7.7 6.4 - 8.4 06/12/2019 [facility] ELECTROLYTES Albumin Lvl 4.2 3.5 - 5.0 06/12/2019 [facility] ELECTROLYTES ALT 22 0 - 65 06/12/2019 [facility] ELECTROLYTES AST 21 0 - 37 06/12/2019 [facility] ELECTROLYTES Alk Phos 70 39 - 136 06/12/2019 [facility] ELECTROLYTES Bili Total 0.5 0.2 - 1.3 06/12/2019 [facility] ELECTROLYTES eGFR 132 06/12/2019 Result Comment: The eGFR is calculated using the CKD-EPI formula. In most young, healthy individuals the eGFR will be >90 mL/min/1.73m2. The eGFR declines with age. An eGFR of 60-89 may be normal in some populations, particularly the elderly, for whom the CKD-EPI formula has not been extensively validated. Use of the eGFR is not recommended in the following populations:

Individuals with unstable creatinine concentrations, including patients and those with serious co-morbid conditions.

Patients with extremes in muscle mass or diet.

The data above are obtained from the National Kidney Disease Education Program (NKDEP) which additionally recommends that when the eGFR is used in patients with extremes of body mass index for purposes of drug dosing, the eGFR should be multiplied by the estimated BMI. [facility] Segs 45.2 45.0 - 75.0 06/12/2019 [facility] Lymphocytes 40.4 20.0 - 40.0 06/12/2019 [facility] Monocytes 12.0 2.0 - 12.0 06/12/2019 [facility] Eosinophils 1.7 0.0 - 4.0 06/12/2019 [facility] Basophils 0.7 0.0 - 1.0 06/12/2019 [facility] Neutrophils # 1.7 1.5 - 8.1 06/12/2019 [facility] Lymphocytes # 1.6 1.0 - 5.5 06/12/2019 [facility] Monocytes # 0.5 0.0 - 0.8 06/12/2019 [facility] Eosinophils # 0.1 0.0 - 0.5 06/12/2019 [facility] WBC 3.9 3.7 - 10.4 06/12/2019 [facility] RBC 4.81 4.70 - 6.10 06/12/2019 [facility] Hgb 15.3 14.0 - 18.0 06/12/2019 [facility] Hct 45.3 42.0 - 54.0 06/12/2019 [facility] MCV 94.2 80.0 - 94.0 06/12/2019 [facility] MCH 31.9 27.0 - 31.0 06/12/2019 [facility] MCHC 33.9 32.0 - 36.0 06/12/2019 [facility] HEMATOLOGY RDW 13.4 11.5 - 14.5 06/12/2019 [facility] HEMATOLOGY Platelet 250 133 - 450 06/12/2019 [facility] HEMATOLOGY MPV 6.7 7.4 - 10.4 06/12/2019 [facility] URINE AND STOOL UA Sq Epi None Seen 04/08/2018 [facility] URINE AND STOOL UA Mucus Few /LPF None Seen /LPF 04/08/2018 [facility] URINE AND STOOL UA RBC <1 0 - 2 04/08/2018 [facility] URINE AND STOOL UA WBC 1 0 - 5 04/08/2018 [facility] URINE AND STOOL UA Nitrite Negative (04/07/18 7:56 PM) Negative 04/08/2018 [facility] URINE AND STOOL UA Leuk Est Negative (04/07/18 7:56 PM) Negative 04/08/2018 [facility] URINE AND STOOL UA Bili Negative *NA* (04/07/18 7:56 PM) Negative 04/08/2018 [facility] URINE AND STOOL UA Ketones Negative mg/dL Negative mg/dL 04/08/2018 [facility] UA Blood Negative (04/07/18 7:56 PM) Negative 04/08/2018 [facility] URINE AND STOOL UA Glucose Negative mg/dL Negative mg/dL 04/08/2018 [facility]INE AND STOOL UA Protein Negative mg/dL Negative mg/dL 04/08/2018 [facility] URINE AND STOOL UA Urobilinogen <=1.0 mg/dL 0.1 - 1.0 04/08/2018 [facility] URINE AND STOOL UA pH 7.0 5.0 - 8.0 04/08/2018 [facility] URINE AND STOOL UA Spec Grav 1.021 <=1.030 04/08/2018 [facility] URINE AND STOOL UA Color Yellow *NA* (04/07/18 7:56 PM) Yellow 04/08/2018 [facility] URINE AND STOOL UA Turbidity Clear (04/07/18 7:56 PM) Clear 04/08/2018 [facility] CHEM PANEL Lipase Lvl 429 73 - 393 04/08/2018 [facility] CHEM PANEL eGFR 139 04/08/2018 Result Comment: The eGFR is calculated using the CKD-EPI formula. In most young, healthy individuals the eGFR will be >90 mL/min/1.73m2. The eGFR declines with age. An eGFR of 60-89 may be normal in some populations, particularly the elderly, for whom the CKD-EPI formula has not been extensively validated. Use of the eGFR is not recommended in the following populations:

Individuals with unstable creatinine concentrations, including patients and those with serious co-morbid conditions.

Patients with extremes in muscle mass or diet.

The data above are obtained from the National Kidney Disease Education Program (NKDEP) which additionally recommends that when the eGFR is used in patients with extremes of body mass index for purposes of drug dosing, the eGFR should be multiplied by the estimated BMI. [place] CHEM PANEL Potassium Lvl 3.9 3.5 - 5.1 04/08/2018 [place] CHEM PANEL Total Protein 7.1 6.4 - 8.4 04/08/2018 [place] CHEM PANEL Albumin Lvl 3.7 3.5 - 5.0 04/08/2018 [place] CHEM PANEL Calcium Lvl 8.7 8.5 - 10.5 04/08/2018 [place] CHEM PANEL Chloride Lvl 105 95 - 109 04/08/2018 [place] CHEM PANEL CO2 27 24 - 32 04/08/2018 [place] CHEM PANEL AST 36 0 - 37 04/08/2018 [place] CHEM PANEL ALT 66 0 - 65 04/08/2018 [place] CHEM PANEL Alk Phos 64 39 - 136 04/08/2018 [place] CHEM PANEL Bili Total 0.2 0.2 - 1.3 04/08/2018 [place] CHEM PANEL Sodium Lvl 141 135 - 145 04/08/2018 [place] CHEM PANEL Glucose Lvl 94 70 - 99 04/08/2018 [place] CHEM PANEL BUN 15 7 - 22 04/08/2018 [place] CHEM PANEL Creatinine Lvl 0.82 0.50 - 1.40 04/08/2018 [place] CHEM PANEL Globulin 3.4 2.7 - 4.2 04/08/2018 [place] CHEM PANEL AGAP 12.9 10.0 - 20.0 04/08/2018 [place] CHEM PANEL B/C Ratio 18 6 - 25 04/08/2018 [place] CHEM PANEL A/G Ratio 1.1 0.7 - 1.6 04/08/2018 [facility] INR 0.95 0.85 - 1.17 04/08/2018 [facility] HEMATOLOGY PT 12.7 12.0 - 14.7 04/08/2018 [facility] PTT 30.4 22.9 - 35.8 04/08/2018 [facility] MPV 6.9 7.4 - 10.4 04/08/2018 [facility] Platelet 250 133 - 450 04/08/2018 [facility] Hct 38.9 42.0 - 54.0 04/08/2018 [facility] MCV 91.7 80.0 - 94.0 04/08/2018 [facility] MCH 31.8 27.0 - 31.0 04/08/2018 [facility] RDW 13.9 11.5 - 14.5 04/08/2018 [facility] MCHC 34.7 32.0 - 36.0 04/08/2018 [facility] WBC 5.9 3.7 - 10.4 04/08/2018 [facility] RBC 4.24 4.70 - 6.10 04/08/2018 [facility] Hgb 13.5 14.0 - 18.0 04/08/2018 [facility] Basophils # 0.1 0.0 - 0.2 04/08/2018 [facility] HEMATOLOGY Segs-Bands # 2.6 1.5 - 8.1 04/08/2018 [facility] HEMATOLOGY Eosinophils 1.7 0.0 - 4.0 04/08/2018 [facility] Basophils 1.1 0.0 - 1.0 04/08/2018 [facility] HEMATOLOGY Segs 44.1 45.0 - 75.0 04/08/2018 [facility] HEMATOLOGY Monocytes 11.8 2.0 - 12.0 04/08/2018 [facility] HEMATOLOGY Lymphocytes 41.3 20.0 - 40.0 04/08/2018 [facility] Monocytes # 0.7 0.0 - 0.8 04/08/2018 [facility] HEMATOLOGY Lymphocytes # 2.4 1.0 - 5.5 04/08/2018 [facility] Eosinophils # 0.1 0.0 - 0.5 04/08/2018 [facility] CHEMISTRY eGFR 147 02/14/2013 NA <sup>1</sup>Result Comment: The eGFR is calculated using the CKD-EPI formula. In most young, healthy individuals the eGFR will be >90 mL/min/1.73m2. The eGFR declines with age. An eGFR of 60-89 may be normal in some populations, particularly the elderly, for whom the CKD-EPI formula has not been extensively validated. Use of the eGFR is not recommended in the following populations:& lt;br/>
Individuals with unstable creatinine concentrations, including patients and those with serious co-morbid conditions.

Patients with extremes in muscle mass or diet.

The data above are obtained from the National Kidney Disease Education Program (NKDEP) which additionally recommends that when the eGFR is used in patients with extremes of body mass index for purposes of drug dosing, the eGFR should be multiplied by the estimated BMI. [facility] CHEMISTRY Calcium Lvl 9.5 8.5 - 10.5 02/14/2013 Normal [facility] CHEMISTRY CO2 30 24 - 32 02/14/2013 Normal [facility] CHEMISTRY Total Protein 8.4 6.4 - 8.4 02/14/2013 Normal [facility] CHEMISTRY Potassium Lvl 4.2 3.5 - 5.1 02/14/2013 Normal [facility] CHEMISTRY Sodium Lvl 137 135 - 145 02/14/2013 Normal [facility] CHEMISTRY Chloride Lvl 101 95 - 109 02/14/2013 Normal [facility] CHEMISTRY Albumin Lvl 4.6 3.5 - 5.0 02/14/2013 Normal [facility] CHEMISTRY AST 20 0 - 37 02/14/2013 Normal [facility] CHEMISTRY Creatinine Lvl 0.8 0.5 - 1.4 02/14/2013 Normal [facility] CHEMISTRY Alk Phos 78 39 - 136 02/14/2013 Normal [facility] CHEMISTRY Bili Total 0.5 0.2 - 1.3 02/14/2013 Normal [facility] CHEMISTRY ALT 20 0 - 65 02/14/2013 Normal [facility] CHEMISTRY BUN 16 7 - 22 02/14/2013 Normal [facility] CHEMISTRY Glucose Lvl 81 70 - 99 02/14/2013 Normal <sup>2</sup>Interpretive Data: Adult ref erence range values reflect the clinical guidelines
of the [place] [employer]. [facility] CHEMISTRY Globulin 3.8 2.0 - 4.0 02/14/2013 Normal [facility] CHEMISTRY A/G Ratio 1.2 0.7 - 1.6 02/14/2013 Normal [facility] CHEMISTRY AGAP 10.2 10.0 - 20.0 02/14/2013 Normal [facility] CHEMISTRY B/C Ratio 20 6 - 25 02/14/2013 Normal [facility] HEMATOLOGY Eosinophils 0.3 0.0 - 4.0 02/14/2013 Normal [facility] HEMATOLOGY Segs-Bands # 3.0 1.5 - 8.1 02/14/2013 Normal [facility] HEMATOLOGY Monocytes # 0.7 0.0 - 0.8 02/14/2013 Normal [facility] HEMATOLOGY Lymphocytes 29.4 20.0 - 40.0 02/14/2013 Normal [facility] HEMATOLOGY Monocytes 12.9 2.0 - 12.0 02/14/2013 [facility] HEMATOLOGY Segs 56.1 45.0 - 75.0 02/14/2013 Normal [facility] HEMATOLOGY Plt Morph Seema l (02/14/2013 13:53:00) 02/14/2013 Normal [facility] HEMATOLOGY Basophils 1.3 0.0 - 1.0 02/14/2013 [facility] HEMATOLOGY RBC Morph Seema l (02/14/2013 13:53:00) 02/14/2013 Normal [facility] HEMATOLOGY Lymphocytes # 1.6 1.0 - 5.5 02/14/2013 Normal [facility] HEMATOLOGY Basophils # 0.1 0.0 - 0.2 02/14/2013 Normal [facility] HEMATOLOGY Eosinophils # 0.0 0.0 - 0.5 02/14/2013 Normal [facility] HEMATOLOGY RDW 13.0 11.5 - 14.5 02/14/2013 Normal [facility] HEMATOLOGY RBC 4.78 4.70 - 6.10 02/14/2013 Normal [facility] HEMATOLOGY WBC 5.3 3.7 - 10.4 02/14/2013 Normal [facility] HEMATOLOGY MPV 7.4 7.4 - 10.4 02/14/2013 Normal [facility] HEMATOLOGY Platelet 257 133 - 450 02/14/2013 Normal [facility] HEMATOLOGY Hct 45.0 42.0 - 54.0 02/14/2013 Normal [facility] HEMATOLOGY Hgb 15.4 14.0 - 18.0 02/14/2013 Normal [facility] HEMATOLOGY MCV 94.2 80.0 - 94.0 02/14/2013 [facility] HEMATOLOGY MCH 32.1 27.0 - 31.0 02/14/2013 [facility] HEMATOLOGY MCHC 34.1 32.0 - 36.0 02/14/2013 Normal [facility] URINALYSIS UA Glucose Negat maura (02/14/2013 13:53:00) Negati ve 02/14/2013 Normal [facility] URINALYSIS UA Protein Trace *ABN* (02/14/2013 13:53:00) Negati ve 02/14/2013 ABN [facility] URINALYSIS UA Turbidity Sligh t Cloudy (02/14/2013 13:53:00) Clear 02/14/2013 Normal [facility] URINALYSIS UA Spec Grav >=1.0 30 *ABN* (02/14/2013 13:53:00) <=1.030 02/14/2013 ABN [facility] URINALYSIS UA pH 6.0 5.0 - 8.0 02/14/2013 Normal [facility] URINALYSIS UA Nitrite Negat maura (02/14/2013 13:53:00) Negati ve 02/14/2013 Normal [facility] URINALYSIS UA Blood Negat maura (02/14/2013 13:53:00) Negati ve 02/14/2013 Normal [facility] URINALYSIS UA Urobilinogen 0.2 0.1 - 1.0 02/14/2013 Normal [facility] URINALYSIS UA Ketones 40 mg /dL *NA* (02/14/2013 13:53:00) Negati ve 02/14/2013 NA [facility] URINALYSIS UA Bili Negat maura *NA* (02/14/2013 13:53:00) Negati ve 02/14/2013 NA [facility] URINALYSIS UA Color Yello w *NA* (02/14/2013 13:53:00) Yellow 02/14/2013 NA [facility] URINALYSIS UA Leuk Est Negat maura (02/14/2013 13:53:00) Negati ve 02/14/2013 Normal [facility] URINALYSIS UA WBC 0-2 / HPF (02/14/2013 13:53:00) None S een 02/14/2013 Normal [facility] URINALYSIS UA Bacteria Occas ional /HPF (02/14/2013 13:53:00) None S een 02/14/2013 Normal [facility] URINALYSIS UA Sq Epi Occas ional /LPF (02/14/2013 13:53:00) Few 02/14/2013 Normal [facility] URINALYSIS UA Mucus Many /LPF *ABN* (02/14/2013 13:53:00) None S een 02/14/2013 ABN [facility] Pathology Reports No Data Provided for This Section Diagnostic Reports Report Value Date Source ED Abdomen/Pelvis IV contrast only CT Radiation Dose CTDIVOL = 0 (mGy): DLP = 212.72 (mGy-cm) PROCEDURE INFORMATION: Exam: CT Abdomen And Pelvis With Contrast Exam date and time: 08/09/2020 9:26 PM Age: 30 years old Clinical indication: /lower abdominal left, rectal pain, HX of hernia repair, TECHNIQUE: Imaging protocol: Computed tomography of the abdomen and pelvis with intravenous contrast. Radiation optimization: All CT scans at this facility use at least one of these dose optimization techniques: automated exposure control; mA and/or kV adjustment per patient size (includes targeted exams where dose is matched to clinical indication); or iterative reconstruction. Contrast material: OMNI; Contrast volume: 100 ml; Contrast route: INTRAVENOUS (IV); COMPARISON: ABDOMEN/PELVIS W IV CONTRAST CT 04/13/2018 3:20 PM RADIATION DOSE METRICS: Total DLP (mGy-cm): 212.72 FINDINGS: Liver: Size and contours appear normal. Gallbladder and bile ducts: Decompressed. No radiodense gallstones. No pericholecystic fluid. No detected ductal dilatation. Pancreas: No surrounding inflammation. Spleen: No abnormality detected. Adrenal glands: No detected lesions. Kidneys and ureters: Kidneys normal in size and contour. No renal stones. Visualized portions of bilateral collecting systems demonstrate no hydronephrosis. Distal ureters not well assessed, but no obvious calcifications along the expected courses. Stomach and bowel: Stomach and proximal small bowel unremarkable. Slightly patulous fluid-filled loops of distal small bowel with mild wall thickening/hyperemia. Moderate amount of stool retained in the proximal and mid colon. Questionable circumferential thickening of the rectum torres. Appendix: Visualized portions appear normal in caliber without inflammation. Tip is not well characterized, but no obvious inflammation in the expected location. Intraperitoneal space: No detected organized fluid collection. No free air. Vasculature: No detected aneurysmal dilatation of the aorta. Lymph nodes: No pathologically enlarged lymph nodes detected. Urinary bladder: Distends normally without wall thickening. Reproductive: Prostate gland and seminal vesicles appear grossly normal. Bones/joints: Chronic bilateral pars at L5 with approximately 5 mm anterolisthesis of L5 on S1, likely contributing to moderate bilateral neural foraminal narrowing. No detected acute or aggressive bone abnormality. Soft tissues: No focal asymmetric soft tissue swelling. IMPRESSION: 1. Questionable circumferential thickeni ng of the rectum torres. With the provided history of rectal pain, proctitis is not excluded. 2. Equivocal changes of the distal small bowel for which mild enteritis difficult to exclude. 3. Moderate amount of stool retained in the proximal and mid colon. Claudia Porras MD On 08/09/2020 21:53:17; [id number] 08/09/2020 [facility] Chest 2 views DX PROCEDURE INF ORMATION: Exam: XR Chest, 2 Views Exam date and time: 05/10/2020 4:55 PM Age: 30 years old Clinical indication: Chest pain; Additional info: /chest pain TECHNIQUE: Imaging protocol: XR of the chest Views: 2 views. PA and Lateral COMPARISON: CR CHEST 2 VIEWS DX 06/12/2019 1:28 PM FINDINGS: Lungs: There are normal lung volumes without consolidation or interstitial oppacities. Pleural space: Unremarkable. No pleural effusion. No pneumothorax. Heart/Mediastinum: The heart size is normal. The pulmonary vasculature is normal. The mediastinal contour is normal. The trachea is midline. Bones/joints: No acute abnormality seen. IMPRESSION: No acute cardiopulmonary findings Josué William MD On 05/10/2020 17:05:13; [id number] 05/10/2020 [facility] Foot series DX PROCEDURE INFOR MATION: Exam: XR Right Foot Complete Exam date and time: 09/11/2019 1:06 PM Age: 29 years old Clinical history: Pain; Edema; Toes; Right; Additional info: /r/o osteo 5th toe TECHNIQUE: Imaging protocol: XR Right foot. Views: 3 or more views. AP Oblique Lateral COMPARISON: No relevant prior studies available. FINDINGS: Bones/joints: There is normal alignment without fractures or dislocations. The joints appear unremarkable. Soft tissues: There are no radiopaque foreign bodies. There is no soft tissue gas or osseous erosive changes noted. Notes: If there is further concern, recommend follow-up radiographs or MRI for complete assessment. IMPRESSION: No fractures or dislocation Nick Carrasco MD On 09/11/2019 13:54:13; [id number] 09/11/2019 [facility] 2 views DX Clinical Saumya cation: Chest pain, syncope. Comparison: Chest x-ray 03/28/2018 Technique: Frontal and lateral views of the chest was obtained. Findings: Lines and Tubes: None. Lungs and Pleura: No airspace opacification or consolidation. No pleural effusion or pneumothorax. Heart and Mediastinum: The cardiomediastinal silhouette is normal. Bones: No acute osseous abnormality. 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 IMPRESSION: No acute cardiopulmonary abnormality. SL: [id number] 06/12/2019 [facility] Abdomen/Pelvis w IV contrast CT STUDY: Abdomen/Pelvis w IV contrast CT 04/13/2018 3:19 PM CDT Ordering Physician: Lisset Stanford MD Patient Name: OSCAR RENDON MR: [id number] : 1990; Age: 28 years y/o Male Clinical Indication: - R10.9 Unspecified abdominal pain Comparison: 04/07/2018 CT TECHNIQUE: Multiple contiguous postcontrast transaxial CT images were obtained from the diaphragm through the symphysis pubis.Sagittal and coronal reformatted images were prepared. IV CONTRAST: 95 mL Omnipaque 300 DLP: 313 mGy-cm CT ABDOMEN AND PELVIS WITH CONTRAST: VISUALIZED LUNG BASES: No significant abnormality. BOWEL: Normal nonobstructed bowel gas pattern. APPENDIX: The appendix is not identified with certainty, but no pericecal inflammation is appreciated. STOMACH: Normal for degree of distention. PERITONEUM AND MESENTERY: Free Air: No evidence of pneumoperitoneum. Free Fluid: No evidence of significant free fluid, loculated fluid, peripherally enhancing abscess, or hemorrhage. Mesenteric and peritoneal fat: Normal without focal lesion or inflammation. LYMPH NODES: No lymphadenopathy or mass. VASCULAR: Abdominal Aorta: Normal caliber abdominal aorta without aneurysm or dissection. IVC: Normal caliber nonenhanced. ABDOMINAL ORGANS: Liver: Normal size and morphology without discrete lesion. Gallbladder: Normal appearing gallbladder without calcified gallstones, gallbladder wall thickening, or pericholecystic inflammation. Biliary Tree: Normal without dilatation. Kidneys: Normal size and morphology without discrete lesion or hydronephrosis. Adrenal Glands: Normal size and morphology without discrete lesion. Pancreas: Normal size and morphology without discrete lesion. Spleen: Normal size and morphology without discrete lesion. PELVIC ORGANS: Urinary bladder: Normal nonenhanced appropriate for degree of distention. Questionable thickening of the anterior urinary bladder wall (series 2 image 84) is likely artifactual in nature. Reproductive organs: No organomegaly or mass lesions. SOFT TISSUES: No suspicious soft tissue lesion or abnormality. OSSEOUS STRUCTURES: No fracture, dislocation, or suspicious focal osseous lesion. Bilateral pars interarticularis defects and grade 1 anterolisthesis of L5 on S1. IMPRESSION: 1. No acute abnormality. SL: [id number] 04/13/2018 [facility] Scrotal/Testicle w Doppler US Scrotal/Testicle w Doppler US Male 28 years old Clinical Indication: - scrotal pain; previous history of right-sided testicular torsion and orchiectomy. Bilateral back pain. Pain after E 30 to 45 minutes. Feeling of tightness underneath the scrotum. Comparison: None TECHNIQUE: Sonographic evaluation of the scrotum and left testicle was performed using high resolution grayscale imaging as well as pulse and color Doppler imaging. FINDINGS: TESTES: The right testicle previously resected. The left testicle measures 4.9 x 2.0 x 2.8 cm. There is normal left testicular contour and morphology. There are no testicular masses or testicular calcifications. The Doppler images of the left testicle show normal blood flow. EPIDIDYMIDES: Left epididymal head, body and tail regions are remarkable for a epididymal cyst on the left measuring 3 mm in diameter. SCROTUM: There is no hydrocele. There is a small left varicocele.. There is no scrotal edema. IMPRESSION: 1. Unremarkable left testicular ultraso und with normal testicular Doppler blood flow. 2. Small left varicocele. 3. Small left epididymal cyst. 4. Previous right orchiectomy. SL: SSMILEY-PC 04/07/2018 [facility] Renal Stone CT Renal Stone CT TECHNIQUE: Contiguous transaxial images of the abdomen and pelvis were performed from the lung bases to the superior pubic rami without IV contrast. COMPARISON: None CLINICAL HX: - RIGHT FLANK PAIN. CT ABDOMEN: Lower CHEST: The lung bases are clear. ABDOMINAL VISCERA: Noncontrast images of the liver are unremarkable. The spleen, pancreas and both adrenals demonstrate no gross abnormalities given the limitation of lack of IV contrast. Gallbladder is contracted. GI TRACT: Lack of oral contrast limits evaluation of bowel. Nonvisualization of the appendix. No evidence to suggest small or large bowel obstruction. No mesenteric edema or lymphadenopathy.There is no evidence for free fluid or free air in the abdomen. KIDNEYS and URETERS: No tract calculi are visualized on either side. No hydronephrosis. RETROPERITONEUM: No significant retroperitoneal lymphadenopathy is noted. VASCULATURE: No evidence for AAA. BONE and SOFT TISSUES: No acute bony abnormality is noted. CT PELVIS: The bladder, seminal vesicles and the prostate are unremarkable in appearance, given the limitation of lack of IV contrast. No free fluid is present in the pelvis. IMPRESSION: Limited evaluation due to lack of IV contrast, lack of oral contrast and relatively little mesenteric fat. No significant acute abnormality is noted on the noncontrast CT of the abdomen and pelvis. SL: LEONEL 04/07/2018 [facility] Chest 2 views DX Patient Name: OSCAR JORDAN CARRIER : 1990; Age: 28 years y/o Male MR: [id number] * CHEST, 2 views HISTORY: Cough. COMPARISON: None TECHNIQUE: Frontal and lateral radiographs of the chest were obtained. FINDINGS: There is no evidence of an active or acute process within the chest. The lungs are clear. There are no pleural effusions. The heart and pulmonary vasculature are within normal limits. The regional skeleton is unremarkable. IMPRESSION: 1. No active disease. SL: [id number] 03/28/2018 [facility] Gallbladder scan XSI Semi ConductorsA w meds CT Patient Name: OSCAR JORDAN CARRIER : 1990; Age: 28 years y/o Male MR: [id number] Study: Gallbladder scan XSI Semi ConductorsA w [place] 03/28/2018 1:04 PM CDT Ordering Physician: Lisset Stanford MD Comparison: None Clinical Indication: - abdominal pain; generalized The patient was administered 6.2 millicuries technetium 99m Choletec IV at the left antecubital vein with sequential imaging obtained in the anterior plane initially at 5 minutes and at 15 minute intervals to one hour. The hepatic and biliary phases are normal. There is activity noted at the gallbladder at 15 minutes. Activity is noted within the bowel at 30 minutes. Enterogastric reflux of activity is noted. Range of interest was placed over the gallbladder and the patient was administered 1.1 micrograms Kinevac IV over 30 minutes with gallbladder ejection fraction determined to be 92%. The patient reported no pain during CCK injection. IMPRESSION: 1. Enterogastric reflux of activity is n oted; otherwise, normal HIDA scan with normal gallbladder ejection fraction. SL: [id number] 03/28/2018 [facility] Abdomen AP view NAME: OSCAR RENDON : 1990 SEX: M Ordering Physician: Holden Guaman Abdomen 1 view : February 14, 2013 02:28:00 PM. CLINICAL INDICATION: Abdominal pain, acute. Comparison Examination: None. 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 Nonpathologic bowel gas pattern without evidence for bowel obstruction. No abnormal abdominal or pelvic calcifications. SL: 14 02/14/2013 [facility] Consultation Notes No Data Provided for This Section Discharge Summaries No Data Provided for This Section History and Physicals No Data Provided for This Section Vital Signs Vital Sign Value Date Comments Source Systolic (mm Hg) 125 08/11/2020 [facility] Diastolic (mm Hg) 78 08/11/2020 [facility] Heart Rate 63 08/11/2020 [facility] Temperature Oral (F) 98.2 F 08/11/2020 [facility] Height 170.18 cm 08/11/2020 [facility] Weight 58.636 08/11/2020 [facility] BMI Calculated 20.25 08/11/2020 [facility] Systolic (mm Hg) 117 08/10/2020 [facility] Diastolic (mm Hg) 82 08/10/2020 [facility] Heart Rate 67 08/10/2020 [facility] Respitory Rate 15 08/10/2020 [facility] Temperature Oral (F) 98.4 F 08/10/2020 [facility] Systolic (mm Hg) 122 08/10/2020 [facility] Diastolic (mm Hg) 80 08/10/2020 [facility] Heart Rate 71 08/10/2020 [facility] Respitory Rate 15 08/10/2020 [facility] Height 170.18 cm 08/10/2020 [facility] BMI Calculated 18.85 08/10/2020 [facility] Weight 54.6 08/10/2020 [facility] Systolic (mm Hg) 123 08/10/2020 [facility] Diastolic (mm Hg) 88 08/10/2020 [facility] Heart Rate 78 08/10/2020 [facility] Respitory Rate 18 08/10/2020 [facility] Temperature Oral (F) 98.5 F 08/10/2020 [facility] Systolic (mm Hg) 124 07/08/2020 [facility] Diastolic (mm Hg) 83 07/08/2020 [facility] Heart Rate 63 07/08/2020 [facility] Temperature Oral (F) 98.6 F 07/08/2020 [facility] Height 170.18 cm 07/08/2020 [facility] Weight 56.818 07/08/2020 [facility] BMI Calculated 19.62 07/08/2020 [facility] Systolic (mm Hg) 120 06/15/2020 [facility] Diastolic (mm Hg) 80 06/15/2020 [facility] Heart Rate 56 06/15/2020 [facility] Temperature Oral (F) 98.7 F 06/15/2020 [facility] Height 170.18 cm 06/15/2020 [facility] Weight 57.727 06/15/2020 [facility] BMI Calculated 19.93 06/15/2020 [facility] Temperature Oral (F) 98.1 F 05/20/2020 [facility] Heart Rate 81 05/20/2020 [facility] Respitory Rate 16 05/20/2020 [facility] Systolic (mm Hg) 155 05/20/2020 [facility] Diastolic (mm Hg) 99 05/20/2020 [facility] Height 170.18 cm 05/20/2020 [facility] BMI Calculated 19.46 05/20/2020 [facility] Weight 56.364 05/20/2020 [facility] Systolic (mm Hg) 157 05/20/2020 [facility] Diastolic (mm Hg) 102 05/20/2020 [facility] Heart Rate 87 05/20/2020 [facility] Respitory Rate 16 05/20/2020 [facility] Temperature Oral (F) 98 F 05/20/2020 [facility] Systolic (mm Hg) 125 05/15/2020 [facility] Diastolic (mm Hg) 76 05/15/2020 [facility] Heart Rate 62 05/15/2020 [facility] Temperature Oral (F) 99.0 F 05/15/2020 [facility] Height 165.1 cm 05/15/2020 [facility] Weight 57.017 05/15/2020 [facility] BMI Calculated 20.92 05/15/2020 [facility] Temperature Oral (F) 98 F 05/10/2020 [facility] Heart Rate 62 05/10/2020 [facility] Respitory Rate 16 05/10/2020 [facility] Systolic (mm Hg) 124 05/10/2020 [facility] Diastolic (mm Hg) 68 05/10/2020 [facility] Systolic (mm Hg) 131 05/10/2020 [facility] Diastolic (mm Hg) 82 05/10/2020 [facility] Heart Rate 65 05/10/2020 [facility] Respitory Rate 16 05/10/2020 [facility] Temperature Oral (F) 98.2 F 05/10/2020 [facility] Height 177.8 cm 05/10/2020 [facility] BMI Calculated 21.57 05/10/2020 [facility] Weight 68.182 05/10/2020 [facility] Systolic (mm Hg) 153 05/10/2020 [facility] Diastolic (mm Hg) 112 05/10/2020 [facility] Heart Rate 70 05/10/2020 [facility] Respitory Rate 18 05/10/2020 [facility] Temperature Oral (F) 98.1 F 05/10/2020 [facility] Systolic (mm Hg) 136 09/11/2019 [facility] Diastolic (mm Hg) 84 09/11/2019 [facility] Respitory Rate 18 09/11/2019 [facility] Heart Rate 72 09/11/2019 [facility] Systolic (mm Hg) 137 09/11/2019 [facility] Diastolic (mm Hg) 90 09/11/2019 [facility] Heart Rate 68 09/11/2019 [facility] Respitory Rate 18 09/11/2019 [facility] Temperature Oral (F) 98.0 F 09/11/2019 [facility] Weight 62.727 09/11/2019 [facility] Systolic (mm Hg) 126 09/04/2019 [facility] Diastolic (mm Hg) 77 09/04/2019 [facility] Heart Rate 67 09/04/2019 [facility] Respitory Rate 20 09/04/2019 [facility] Temperature Oral (F) 97.6 F 09/04/2019 [facility] Weight 63.636 09/04/2019 [facility] Temperature Oral (F) 98.3 F 06/12/2019 [facility] Heart Rate 70 06/12/2019 [facility] Respitory Rate 18 06/12/2019 [facility] Systolic (mm Hg) 142 06/12/2019 [facility] Diastolic (mm Hg) 91 06/12/2019 [facility] Systolic (mm Hg) 128 06/12/2019 [facility] Diastolic (mm Hg) 80 06/12/2019 [facility] Heart Rate 59 06/12/2019 [facility] Respitory Rate 18 06/12/2019 [facility] Temperature Oral (F) 97.7 F 06/12/2019 [facility] Height 170.18 cm 06/12/2019 [facility] BMI Calculated 21.97 06/12/2019 [facility] Weight 63.636 06/12/2019 [facility] Systolic (mm Hg) 114 04/08/2018 [facility] Diastolic (mm Hg) 70 04/08/2018 [facility] Heart Rate 59 04/08/2018 [facility] Respitory Rate 18 04/08/2018 [facility] Respitory Rate 18 04/08/2018 [facility] Heart Rate 61 04/08/2018 [facility] Temperature Oral (F) 98.1 F 04/08/2018 [facility] Systolic (mm Hg) 106 04/08/2018 [facility] Diastolic (mm Hg) 57 04/08/2018 [facility] Heart Rate 58 04/08/2018 [facility] Temperature Oral (F) 98.0 F 04/08/2018 [facility] Respitory Rate 18 04/08/2018 [facility] Systolic (mm Hg) 125 04/08/2018 [facility] Diastolic (mm Hg) 72 04/08/2018 [facility] Temperature Oral (F) 98.1 F 04/07/2018 [facility] Weight 61.364 04/07/2018 [facility] Height 170.18 cm 04/07/2018 [facility] BMI Calculated 21.19 04/07/2018 [facility] Temperature Oral (F) 98.2 F 04/06/2018 [facility] Heart Rate 60 04/06/2018 [facility] Weight 61.364 04/06/2018 [facility] BMI Calculated 21.19 04/06/2018 [facility] Height 170.18 cm 04/06/2018 [facility] Systolic (mm Hg) 115 04/06/2018 [facility] Diastolic (mm Hg) 74 04/06/2018 [facility] Height 170.18 cm 02/23/2018 [facility] BMI Calculated 19.93 02/23/2018 [facility] Systolic (mm Hg) 128 02/23/2018 [facility] Diastolic (mm Hg) 86 02/23/2018 [facility] Temperature Oral (F) 98.4 F 02/23/2018 [facility] Heart Rate 62 02/23/2018 [facility] Weight 57.727 02/23/2018 [facility] Temperature Oral (F) 98.0 F 12/31/2017 [facility] Height 170.18 cm 12/31/2017 [facility] Weight 57.727 12/31/2017 [facility] BMI Calculated 19.93 12/31/2017 [facility] Respitory Rate 18 12/31/2017 [facility] Heart Rate 67 12/31/2017 [facility] Systolic (mm Hg) 134 12/31/2017 [facility] Diastolic (mm Hg) 90 12/31/2017 [facility] Weight 62.727 01/05/2016 [facility] Height 170.18 cm 01/05/2016 [facility] BMI Calculated 21.66 01/05/2016 [facility] Heart Rate 61 01/05/2016 [facility] Temperature Oral (F) 98.6 F 01/05/2016 [facility] Respitory Rate 17 01/05/2016 [facility] Systolic (mm Hg) 137 01/05/2016 [facility] Diastolic (mm Hg) 86 01/05/2016 [facility] Diastolic (mm Hg) 82 07/11/2014 [facility] Systolic (mm Hg) 138 07/11/2014 [facility] Respitory Rate 18 07/11/2014 [facility] Heart Rate 71 07/11/2014 [facility] Respitory Rate 18 07/11/2014 [facility] Diastolic (mm Hg) 86 07/11/2014 [facility] Systolic (mm Hg) 143 07/11/2014 [facility] Heart Rate 65 07/11/2014 [facility] Diastolic (mm Hg) 87 05/21/2013 [facility] Temperature Oral (F) 98.5 F 05/21/2013 [facility] Systolic (mm Hg) 128 05/21/2013 [facility] Heart Rate 60 05/21/2013 [facility] Respitory Rate 18 05/21/2013 [facility] Temperature Oral (F) 98.1 F 05/21/2013 [facility] Respitory Rate 18 05/21/2013 [facility] Systolic (mm Hg) 140 05/21/2013 [facility] Diastolic (mm Hg) 78 05/21/2013 [facility] Heart Rate 67 05/21/2013 [facility] Weight 61.818 05/21/2013 [facility] Weight 65.909 02/14/2013 [facility] Height 162.56 cm 02/14/2013 [facility] Weight 65.909 11/19/2012 [facility] Height 170.18 cm 11/19/2012 [facility] Weight 65.909 11/15/2012 [facility] Height 170.18 cm 02/12/2012 [facility] Weight 62.727 02/12/2012 [facility] Weight 62.727 02/09/2012 [facility] Height 170.18 cm 02/09/2012 [facility] Weight 61.364 08/30/2011 [facility] Height 170.18 cm 08/30/2011 [facility] Respitory Rate 18.0 08/30/2011 [facility] Heart Rate 56.0 08/30/2011 [facility] Temperature Oral (F) 96.8 F 08/30/2011 [facility] Diastolic (mm Hg) 72.0 08/30/2011 [facility] Systolic (mm Hg) 119.0 08/30/2011 [facility] Encounters Location Location Details Encounter Type Encounter Number Reason For Visit Attending Provider ADM Date DC Date Status Source [facility] Emergency [id number] JASON MARLES 08/30/2011 08/30/2011 Discharged [facility] Emergency [id number] VAISHNAVI LEWIS 02/08/2012 02/09/2012 Discharged [facility] Emergency [id number] OTHER [employer] 02/12/2012 02/12/2012 Active [facility] Emergency [id number] MEÑO NICHOLS 11/15/2012 11/15/2012 Discharged [facility] Emergency [id number] TRACY SELLERS 11/19/2012 11/19/2012 Discharged [facility] Emergency [id number] HOLDEN GUAMAN 02/14/2013 02/14/2013 Discharged [facility] Emergency [id number] OTHER ESPINOZA PETERS 05/21/2013 05/21/2013 Active [facility] Emergency Center [id number] Espinoza Peters 07/11/2014 07/11/2014 [facility] EC Emergency Center [id number] Lisset Serrano 01/05/2016 01/05/2016 [facility] Emergency [id number] Renny Trotter 12/31/2017 12/31/2017 [facility] [place] [facility] Pre-Reg [id number] Lisset Delgadoi 01/02/2018 01/02/2018 [facility] Outpatient [id number] TU MONTERO 02/23/2018 Active [facility] Outpatient [id number] Tu Montero 02/23/2018 02/24/2018 [facility] Outpatient [id number] YAKOV ESTRADA 03/09/2018 Active [facility] G[facility]enterology [place] [facility] Pre-Reg [id number] Yakov Estrada 03/09/2018 03/09/2018 Medical [facility] Outpatient [id number] Lisset Delgadoi 03/28/2018 03/29/2018 [facility] Outpatient [id number] TU MONTERO 03/30/2018 Active [facility] Ambulatory Pre-Reg [id number] Tu Velasquezoya 03/30/2018 03/30/2018 [facility] Outpatient [id number] LISSET MONTELONGOFRI 04/05/2018 Active [facility] Gastroenterology [facility] Ambulatory Pre-Reg [id number] Nadmala Montelongofri 04/05/2018 04/05/2018 [facility] Outpatient [id number] TU MONTERO 04/06/2018 Active [facility] Outpatient [id number] Tu [facility] 04/06/2018 04/07/2018 Medical Group [facility] Primary Care [place] Outside Medical Records [id number] 04/07/2004/09/2018 Medical Group [facility] Emergency [id number] Rachelle Mccullough 04/07/2018 04/08/2018 [facility] Outpatient Imaging [facility] Outpt Diag Services [id number] Lisset Montelongofri 04/13/2018 04/14/2018 [facility] Outpatient [id number] [facility] 05/11/2018 [facility] Primary Care [facility] Ambulatory Pre-Reg [id number] Tu Montero 05/11/2018 05/11/2018 [facility] Emergency [id number] Kane Soto 06/12/2019 06/12/2019 [facility] Emergency [id number] Avila [place] 09/04/2019 09/04/2019 [facility] Emergency [id number] Maria Elena Aguilar 09/11/2019 09/11/2019 [facility] Emergency [id number] Yehuda Crenshaw 05/10/2020 05/10/2020 [facility] Outpatient [id number] [facility] 05/15/2020 Active [facility] Outpatient [id number] [facility] 05/15/2020 05/16/2020 [facility] Emergency [id number] Renny Trotter 05/20/2020 05/21/2020 [facility] Primary [facility] Phone Message [id number] 06/03/2020 06/05/2020 [facility] Outpatient [id number] Tu Montero 06/15/2020 Active [facility] Outpatient [id number] Tu Montero 06/15/2020 06/16/2020 Medical Group [facility] Primary Care [facility] Between Visit [id number] 06/18/2020 06/19/2020 [facility] Outpatient [id number] Tu Velasquezoya 06/26/2020 [facility] Primary [facility] Ambulatory Pre-Reg [id number] Tu Velasquezoya 06/26/2020 06/26/2020 [facility] Outpatient [id number] Tu Velasquezoya 07/08/2020 [facility] Outpatient [id number] Tu Montero 07/08/2020 07/09/2020 Medical Group [facility] Emergency [id number] Ermelinda Paula 08/09/2020 08/10/2020 [facility] Outpatient [id number] Tu Velasquezoya 08/11/2020 Active [facility] Outpatient [id number] Tu Velasquezoya 08/11/2020 08/12/2020 Medical [facility] Primary [facility] Phone Message [id number] 08/20/2020 08/22/2020 [facility] Procedures Procedure Code Date Perfomer Comments Source Gastroduodenoscopy [id number] 05/25/2020 [facility] Orchiectomy<sup>1</sup> [id number] 10/02/2004 Testicular torsion [facility], [facility] Hernia repair [id number] [facility], [facility] Hernia repair [id number] [facility] Assessment and Plan No Data Provided for This Section Plan of Care No Data Provided for This Section Social History Social History Date Source Social History TypeResponse Alcohol Never Exercise Exercise duration: 30. Exercise frequency: Daily. Exercise type: Walking. Substance Abuse Use: Current. Type: Marijuana. Recreational Drug Route: Inhaled. Smoking Status Former smoker; Type: Cigarettes; Ready to change: No; Concerns about tobacco use in household: No; Exposure to Tobacco Smoke None; Cigarette Smoking Last 365 Days No; Reg Smoking Cessation Counseling No; Tobacco use per day: 5; Number of years: 4; Started at age: 23.0; Stopped at age: 27; Other Tobacco Frequency quit 3 months ago; entered on: 08/11/20 08/11/2020 [facility] Social History TypeResponse Alcohol Never Exercise Exercise duration: 30. Exercise frequency: Daily. Exercise type: Walking. Substance Abuse Use: Current. Type: Marijuana. Recreational Drug Route: Inhaled. Smoking Status Former smoker; Type: Cigarettes; Ready to change: No; Concerns about tobacco use in household: No; Exposure to Tobacco Smoke None; Cigarette Smoking Last 365 Days No; Reg Smoking Cessation Counseling No; Tobacco use per day: 5; Number of years: 4; Started at age: 23.0; Stopped at age: 27; Other Tobacco Frequency quit 3 months ago; entered on: 08/11/20 08/11/2020 [facility] Social History TypeResponse Alcohol Never Exercise Exercise duration: 30. Exercise frequency: Daily. Exercise type: Walking. Substance Abuse Use: Current. Type: Marijuana. Recreational Drug Route: Inhaled. Smoking Status Former smoker; Type: Cigarettes; Ready to change: No; Concerns about tobacco use in household: No; Exposure to Tobacco Smoke None; Cigarette Smoking Last 365 Days No; Reg Smoking Cessation Counseling No; Tobacco use per day: 5; Number of years: 4; Started at age: 23.0; Stopped at age: 27; Other Tobacco Frequency quit 3 months ago; entered on: 05/15/20 05/15/2020 [facility] Social History TypeResponse Substance Abuse Use: Current. Type: Marijuana. Recreational Drug Route: Inhaled. Exercise Exercise duration: 30. Exercise frequency: Daily. Exercise type: Walking. Alcohol Never Smoking Status Former smoker; Type: Cigarettes; Ready to change: No; Concerns about tobacco use in household: No; Exposure to Tobacco Smoke None; Cigarette Smoking Last 365 Days No; Reg Smoking Cessation Counseling No; Tobacco use per day: 5; Number of years: 4; Started at age: 23.0; Stopped at age: 27; Other Tobacco Frequency quit 3 months ago; entered on: 02/23/18 02/23/2018 [facility] Social History TypeResponse Substance Abuse Use: Current. Type: Marijuana. Recreational Drug Route: Inhaled. Exercise Exercise duration: 30. Exercise frequency: Daily. Exercise type: Walking. Alcohol Never Smoking Status Former smoker; Type: Cigarettes; Ready to change: No; Concerns about tobacco use in household: No; Exposure to Tobacco Smoke None; Cigarette Smoking Last 365 Days No; Reg Smoking Cessation Counseling No; Tobacco use per day: 5; Number of years: 4; Started at age: 23.0; Stopped at age: 27; Other Tobacco Frequency quit 3 months ago; entered on: 04/06/18 02/23/2018 [facility] Family History No Data Provided for This Section Advance Directives No Data Provided for This Section Functional Status No Data Provided for This Section
--- OUTSIDE RECORDS SUMMARY | 2020-08-26 15:28 | XMS REPORT | Continuity of Care Document ---
Author Author [facility] t Organization [facility] Address [address] [place] [address] Phone Unavailable Care Team Providers Care Cold Roll Operator Name Role Phone NO, PCP PCP Unavailable Winston ZAZUETA, Tu Attphys Regis ZAZUETA, Hilario Gregg Attphys Stephania ZAZUETA, Nora Martinez Attphys Rajan NUÑEZ, Aminata Attphys Unavailable Garrett Montero Attphys Tim Paula Attphys Jasmyn ZAZUETA, Kaz Chase Attphys Lisa Olivarez MD Attphys John ZAZUETA, Black Moore Attphys Kaylyn OWENS, Channing Attphys Cem DOOLEY, Kayla Attphys Unavailable Renny Trotter Attphys Taye ZAZUETA, Elroy Gale Attphys Yehuda Crenshaw Attphys Jaenlle Aguilar Attphys Gagan [place] Attphys Pablito Soto Attphys Juan Antonio Stanford Nadim Attphys Gui Mccullough Attphys [phone] Janelle Hooper Attphys AIDEE PHAN Attphys Unavailable Rik Serrano Nadim Attphys Homar Dimas Attphys RONNIE STACY Admphys Unavailable Payers Payer Name Policy Type Policy Number Effective Date Expiration Date Juan Carlos ward [employer]/HMO BLUE [id number] 2020 00:00:00 [facility] CROSS[id number] [id number], [place] [address]KRS/POS [id number] 2020 00:00:00 [facility] Miscellaneous Indemnity [id number] C [facility] Problems Condition Name Condition Details Condition Category Status Onset Date Resolution Date Last Treatment Date Treating Clinician Comments Source BLADDER ISSUES BLAD BELLE ISSUES Active 08/09/2020 [facility] Diagnosis Active 2020-08-09 00:00:00 2020-08-09 19:46:00 [facility] PELVIC PELV IC Active 07/08/2020 [facility] [place] Diagnosis Active 2020-07-08 08:00:00 2020-08-24 10:17:00 [facility] OTHER OTHE R Active 05/20/2020 [facility] Diagnosis Active 2020-05-20 00:00:00 2020-07-09 10:47:00 [facility] CHEST PAIN CHES T PAIN Active 05/10/2020 [facility] Diagnosis Active 2020-05-10 00:00:00 2020-05-10 17:44:00 [facility] NAUSEA NAUS EA Active 09/11/2019 [facility] Diagnosis Active 2019-09-11 00:00:00 2019-11-29 16:28:00 [facility] FOOT PAIN FOOT PAIN Active 09/04/2019 [facility] Diagnosis Active 2019-09-04 00:00:00 2019-09-12 18:20:00 [facility] KIDNEY PAIN/ PELVIC KIDN EY PAIN/ PELVIC Active 04/07/2018 [facility] Diagnosis Active 2018-04-07 00:00:00 2018-04-07 18:45: 00 [facility] ABDOMINAL PAIN ABDO RADHA PAIN Active 03/23/2018 [facility] Diagnosis Active 2018-03-23 00:00:00 2018-03-28 12:28:00 [facility] ABD PAIN ABD PAIN Active 12/30/2017 [facility] Diagnosis Active 2017-12-30 00:00:00 2017-12-30 20:12:00 [facility] PELVIC PAIN PELV IC PAIN Active 01/05/2016 [facility] Diagnosis Active 2016-01-05 00:00:00 2016-01-05 13:42:00 [facility] NECK PAIN NECK PAIN Active 07/11/2014 [facility] Diagnosis Active 2014-07-11 06:00:00 2014-07-14 13:49:00 [facility] WEAKNESS WEAK NESS Active 02/14/2013 [facility] Diagnosis Active 2013-02-14 06:00:00 2013-02-14 13:19:00 [facility] WOUND CHECK WOUN D CHECK Active 11/19/2012 [facility] Diagnosis Active 2012-11-19 00:00:00 2012-11-19 08:54:00 [facility] ABSCESS ABSC ESS Active 11/15/2012 [facility] Diagnosis Active 2012-11-15 00:00:00 2012-11-15 14:19:00 [facility] SPIDER BITE ON RT THIGH,HEADACHES SPIDER BITE ON RT THIGH,HEADACHES Active 02/08/2012 [facility] Diagnosis Act maura 2012-02-08 00:00:00 2012-02-09 05:23:00 [facility] TOOTH PAIN TOOT H PAIN Active 08/29/2011 [facility] Diagnosis Active 2011-08-29 00:00:00 2011-08-30 05:29:00 [facility] GERD (gastroesophageal reflux disease) GERD (gastroesophagea l reflux disease) Disease Active [facility] Upper abdominal pain, unspecified Upper abdominal pain, unspecified 04/07/2018 [facility] Problem 2018-04-07 1 3:17:22 [facility] Fred Kidney stone (disorder) Kidn ey stone (disorder) Resolved Problem 08/24/2020 [facility] Problem Resolved 2020-08-24 00:37:49 [facility] Migraine (disorder) Migr mukesh (disorder) Resolved Problem 08/24/2020 [facility] Problem Resolved 2020-08-24 00:37:49 Mem o[facility] Fred Gastroesophageal reflux disease with esophagitis (diso rder) Gastroesophageal reflux disease with esophagitis (disorder) Resolved Problem 08/24/2020 [facility] Problem Resolved 2020-08-24 00:37:49 Orville Ibarra Other specified diseases of anus and rectum Other specified diseases of anus and rectum 08/09/2020 08/12/2020 [facility] Problem 2020-08-09 18:00:00 2020-08-12 22:02:08 2020-08-12 22:02:08 [facility] Acute pharyngitis, unspecified Acute pharyngitis, unspecified 05/20/2020 05/22/2020 [facility] Problem 20 21-05-19 17:00:00 2020-05-22 22:32:42 2020-05-22 22:32:42 [facility] Unspecified abdominal pain Uns pecified abdominal pain 05/10/2020 05/12/2020 [facility] Problem 202 17:00:00 2020-05-12 21:40:03 2020-05-12 21:40:03 [facility] Acute gastritis without bleeding Acute gastritis without bleeding 05/10/2020 05/12/2020 [facility] Problem 05-10 17:00:00 2020-05-12 21:40:03 2020-05-12 21:40:03 [facility] Tinea unguium Lakesha a unguium 09/11/2019 09/13/2019 [facility] Problem 2019-09-11 18:00:00 2019-09-13 22:58:28 2019-09 22:58:28 [facility] Cellulitis of right toe Cell ulitis of right toe 09/04/2019 09/06/2019 [facility] Problem 2019-09-04 18:00:00 2018 22:19:23 2019-09-06 22:19:23 [facility] Fred Other chest pain Othe r chest pain 06/12/2019 06/14/2019 [facility] Problem 2019-06-12 17:00:00 2019-06-14 22:01:51 2 22:01:51 Orville Ibarra Scrotal pain Scro jhoana pain 04/07/2018 04/10/2018 [facility] 2018-04-07 05:00:00 2018-04-10 01:56:01 2018-04 01:56:01 [facility] Headache Head ache 01/13/2018 04/07/2018 [facility] Problem 2018-01-13 03:47:28 2018-04-07 13:17:22 2018-04-07 13:17:22 [facility] Discharge Diagnosis: Muscle spasm Discharge Diagnosis: Muscle spasm 07/11/2014 07/14/2014 [facility] Problem 2 05:00:00 2014-07-14 05:14:41 2014-07-14 05:14:41 [facility] Discharge Diagnosis: Acute neck pain Discharge Diagnosis: Acute neck pain 07/11/2014 07/14/2014 [facility] Problem 2014-07-11 05:00:00 2014-07-14 05:14:41 2014-07-14 05:14:41 [facility] Allergies, Adverse Reactions, Alerts Allergy Name Allergy Type Status Severity Reaction(s) Onset Date Inacti ve Date Treating Clinician Comments Source Aspirin Propensity to adverse reactions Active 2020-06-25 0 0:00:00 [facility] Sucralfate Propensity to adverse reactions Active 2020-06-03 4 00:00:00 [facility] Aspirin Propensity to adverse reactions to drug Active Swelling 2020-05-17 00:00:00 Misbah man Sucralfate Propensity to adverse reactions to drug Active Hives 2020-05-17 00:00:00 Misbah man No Known Allergies DA Active U 2018-12-18 00:00:00 [facility] No Known Allergies DA Active U 2018-01-30 00:00:00 [facility] Shellfish Containing Products Drug Allergy Active Rash 09[facility]17 [facility] Drug Intolerance Active Nausea And Vomiting 2014-05 00:00:00 [facility] Carafate<sup>1</sup> Carafate<sup>1</sup> Active Mild [facility] aspirin aspirin Active [facility] Food Eggs Food Eggs Active Charles ruelas Fred Social History Social Habit Start Date Stop Date Quantity Comments Source Sex Assigned At [place] valenzuela [facility] Exposure to SARS-CoV-2 (event) Not sure [place] [facility] Tobacco use and exposure 2020-08-18 00:00:00 2020-08-18 00:00:00 Form er user [place] [facility] Alcohol intake 2020-08-18 00:00:00 2020-08-18 00:00:00 Ex-drinker (fi nding) [facility] Cigarettes smoked current (pack per day) - Reported 00:00:00 2020-06-25 00:00:00 [facility] Cigarette pack-years 2020-06-25 00:00:00 2020-06-25 00:00:00 [facility] Social History 2018-02-23 17:01:32 2018-02-23 17:01:32 [facility] History of tobacco use 2017-11-18 00:00:00 Current smoker [place] [facility] Smoking Status Start Date Stop Date Source Former smoker 2020-08-18 00:00:00 2020-08-18 00:00:00 Misbah Dalton Medications Ordered Medication Name Filled Medication Name Start Date Stop Da te Current Medication? Ordering Clinician Indication Dosage Frequency Signature (SIG) Comments Components Source traMADoL (ULTRAM) 50 mg tablet 2020-08-17 11:02:49 Yes acute pain 50mg Q6H Take 50 mg by mouth every 6 (six) hours as needed for moderate pain .acute pain. Misbah Dalton POLYETHYLENE GLYCOL 3350 142 MG/ML Oral Solution [Miralax] 2020-08-11 22:35:00 Yes 17 gm, PO, Daily, dissolve in water or juice 8 0z, X 15 day, # 255 gm, 0 Refill(s), Pharmacy: [facility] #[id number], 170.18, cm, 08/11/20 15:27:00 MEDICAL CODING MANAGER, Height, 58.636, kg, 08/11/20 15:27:00 MEDICAL CODING MANAGER, Weight Orville Ibarra Docusate Sodium 100 MG Oral Capsule 2020-08-11 22:35:00 Yes 100 mg = 1 cap, PO, BID, # 60 cap, 0 Refill(s), Pharmacy: [facility] #[id number], 170.18, cm, 08/11/20 15:27:00 MEDICAL CODING MANAGER, Height, 58.636, kg, 08/11/20 15:27:00 MEDICAL CODING MANAGER, Weight Orville Ibarra Famotidine 20 MG Oral Tablet [Pepcid] 2020-08-10 05:15:00 Y es 20 mg = 1 tab, PO, BID, # 28 tab, 0 Refill(s) Orville Ibarra ciprofloxacin 500 mg oral tablet 2020-08-10 05:14:00 Yes 500 mg = 1 tab, PO, Q12H, X 10 day, # 20 tab, 0 Refill(s), 170.18, cm, 08/09/20 18:02:00 MEDICAL CODING MANAGER, Height, 54.6, kg, 08/09/20 18:02:00 MEDICAL CODING MANAGER, Weight Orville Ibarra Metronidazole 500 MG Oral Tablet [Flagyl] 2020-08-10 05:14:00 Yes 500 mg = 1 tab, PO, Q8H, X 10 day, # 30 tab, 0 Refill(s), 170.18, cm, 08/09/20 18:02:00 MEDICAL CODING MANAGER, Height, 54.6, kg, 08/09/20 18:02:00 MEDICAL CODING MANAGER, Weight Orville Ibarra tramadol hydrochloride 50 MG Oral Tablet 2020-08-10 05:14:00 Yes 50 mg = 1 tab, PO, Q6H, X 5 day, # 12 tab, 0 Refill(s) Orville Ibarra Morphine 2020-08-10 03:36:00 No Not es: (Same as:MORPhine Sulfate) Orville Ibarra Zofran 2020-08-10 03:36:00 No Notes: (Same as: Zofran) MEDICATION WASTE Product Size: 4 mg Product Wasted: ___ mg Orville Ibarra Sodium Chloride 0.9% (Bolus) IV 2020-08-10 03:36:00 No 1,000 mL, 1000 ml/hr, Infuse Over: 1 hr, Route: IV, 1,000, Drug form: INJ, ONCE, Priority: STAT, Dosing Weight 54.6 kg, Start date: 08/09/20 21:36:00 MEDICAL CODING MANAGER, Stop date: 08/09/20 21:36:00 MEDICAL CODING MANAGER, 0 Orville vega pantoprazole (Protonix) 40 MG EC tablet 00:00:00 2020-09-06 23:59:00 Yes 40mg QD Take 1 tablet (40 mg total) by mouth daily for 30 days. Misbah Dalton acetaminophen-codeine (TYLENOL WITH CODEINE #3) 300-30 mg pe r tablet 2020-08-07 00:00:00 2020-08-10 23:59:00 No acute pain 1{tbl} Q6H Take 1-2 tablets by mouth every 6 (six) hours as needed for moderate pain for up to 3 days .acute pain. Misbah Dalton ciprofloxacin (CIPRO) 500 MG tablet 2020-07-16 00:00:0 0 2020-07-30 23:59:00 No 500mg Q.5D Take 1 tablet ( 500 mg total) by mouth 2 (two) times a day for 14 days. Misbah Dalton Hydrocortisone 25 MG/ML Topical Cream [Anusol HC] 2020-07-08 17:19:00 Yes 1 appl, GA, BID, X 1 4 day, # 30 gm, 0 Refill(s), Pharmacy: [facility] #[id number], 170.18, cm, 07/08/20 11:35:00 CDT, Height, 56.818, kg, 07/08/20 11:35:00 CDT, Weight Orville Ibarra ciprofloxacin 500 mg oral tablet 2020-07-08 16:39:00 Yes 500 mg = 1 tab, PO, Q12H, # 14 tab, 0 Refill(s) Kyler Ibarra tramadol hydrochloride 50 MG Oral Tablet 2020-07-08 16:39:00 Yes 50 mg = 1 tab, PO, Q6H, PRN Pain, # 40 tab, 0 Refill(s) Orville Ibarra omeprazole (PRILOSEC) 40 MG capsule 2020-06-25 00:00:0 0 2020-07-09 23:59:00 No 40mg Q.5D Take 1 capsule (40 mg total) by mouth 2 (two) times daily for 14 days. [facility] Fluzone Preservative-Free Quadrivalent intramuscular suspens ion 2020-06-15 19:07:00 No / = 9 years; refer to adult dosing Orville Ibarra pantoprazole 40 mg oral enteric coated tablet 2020-06-15 18:42:0 0 Yes 0 Refill(s) Orville Ibarra Famotidine 40 MG Oral Tablet 2020-06-15 18:42:00 Yes 0 Refill(s) Orville Ibarra Famotidine 20 MG Oral Tablet 2020-05-20 22:46:00 Yes 20 mg = 1 tab, PO, BID, # 28 tab, 0 Refill(s) Orville Ibarra omeprazole 40 mg oral delayed release capsule 2020-05-15 17:04:0 0 Yes 40 mg = 1 cap, PO, BID, # 60 cap, 1 Refi ll(s), Pharmacy: [id number], 165.1, cm, 05/15/20 11:23:00 CDT, Height, 57.017, kg, 05/15/20 11:23:00 CDT, Weight [facility] Fred dicyclomine 20 mg oral tablet 2020-05-15 16:58:00 Yes 20 mg = 1 tab, PO, TID-Before Meals, # 30 tab, 0 Refill(s), Pharm[facility]: [id number], 165.1, cm, 05/15/20 11:23:00 CDT, Height, 57.017, kg, 05/15/20 11:23:00 CDT, Weight [facility] Fred omeprazole 40 mg oral delayed release capsule 2020-05-15 16:26:0 0 No ce, PO, Daily, # 30 cap, 0 Refill(s) Orville Ibarra cimetidine 400 mg oral tablet 2020-05-15 16:26:00 Yes 400 mg = 1 tab, PO, BID, # 180 tab, 0 Refill(s) [facility] Famotidine 40 MG Oral Tablet [Pepcid] 2020-05-10 23:17:00 Y es 40 mg = 1 tab, PO, Daily, # 30 tab, 0 Refill(s) Orville Ibarra Al hydroxide/Mg hydroxide/simethicone 2020-05-10 22:30:00 N o Notes: (aluminum hydroxide-magnesium hyd-simethicone 071-357-30wz/5ml 30 ml ud LISSA) Orville Teagueann Xylocaine Viscous 2% mucous membrane solution 2020-05-10 22:30:0 0 No Notes: (Same as: Xylocaine) Charles ruelas Fred GI cocktail (aluminum hydroxide/magnesium hydroxide/lidocain e/simethicone) 2020-05-10 22:25:00 No 45 mL, Route: PO, Dosing Weight 68.182, kg, ONCE, STAT, Start date: 05/10/20 17:25:00 CDT, Stop date: 05/10/20 17:25:00 CDT Orville Teagueann Pepcid 2020-05-10 22:25:00 No Notes: (Same as: Pepcid) Can be dilute in 5-10cc NS IVP: Slow IV push over at least 2 minutes. Orville Ibarra Bentyl 2020-05-10 22:25:00 No Notes: (Same as: Bentyl) Orville Ibarra Zofran 2020-05-10 22:25:00 No Notes: (Same as: Zofran) MEDICATION WASTE Product Size: 4 mg Product Wasted: ___ mg Orville Ibarra Al hydroxide/Mg hydroxide/simethicone 2020-05-10 21:50:00 N o Notes: (aluminum hydroxide-magnesium hyd-simethicone 226-072-36mn/5ml 30 ml ud LISSA) Orville Ibarra Xylocaine Viscous 2% mucous membrane solution 2020-05-10 21:50:0 0 No Notes: (Same as: Xylocaine) Charlescourtney ruelas Fred GI cocktail (aluminum hydroxide/magnesium hydroxide/lidocain e/simethicone) 2020-05-10 21:43:00 No 45 mL, Route: PO, Dosing Weight 62.727, kg, ONCE, STAT, Start date: 05/10/20 16:43:00 CDT, Stop date: 05/10/20 16:43:00 CDT Orville Ibarra Ibuprofen 2019-09-11 18:39:00 No 600 mg, Route: PO, ONCE, Dosing Weight 62.727, kg, Priority: STAT, Start date: 09/11/19 12:39:00 MEDICAL CODING MANAGER, Stop date: 09/11/19 12:39:00 MEDICAL CODING MANAGER Orville Ibarra Fluconazole 150 MG Oral Tablet [Diflucan] 2019-09-04 14:46:00 Yes 150 mg = 1 tab, PO, qWeek, 150 mg once weekly for four weeks, # 4 tab, 0 Refill(s) Orville Ibarra Cephalexin 500 MG Oral Capsule [Keflex] 2019-09-04 14:43:00 Yes 500 mg = 1 cap, PO, BID, X 7 day, # 14 cap, 0 Refill(s) Orville Ibarra cyclobenzaprine 10 mg oral tablet 2019-06-12 20:28:00 Yes 10 mg = 1 tab, PO, TID, PRN for spasms, X 10 day, # 30 tab, 0 Refill(s) Orville Ibarra Sodium Chloride 0.9% (Bolus) IV 2019-06-12 19:28:00 No 1,000 mL, Infuse Over: 1 hr, Route: IV, ONCE, Priority: STAT, Dosing Weight 63.636 kg, Start date: 06/12/19 14:28:00 CDT, Stop date: 06/12/19 14:28:00 CDT Orville Ibarra Acetaminophen 2019-06-12 19:28:00 No 650 mg, Route: PO, Drug form: TAB, ONCE, Dosing Weight 63.636, kg, Priority: STAT, Start date: 06/12/19 14:28:00 CDT, Stop date: 06/12/19 14:28:00 CDT Orville Ibarra tramadol hydrochloride 50 MG Oral Tablet 2018-04-08 01:33:00 Yes 50 mg = 1 tab, PO, Q6H, PRN Pain, X 10 day, # 40 tab, 0 Refill(s) Orville Ibarra Fentanyl 2018-04-08 01:19:00 No Notes: (Same as: Sublimaze) Preservative free. Orville Ibarra Ondansetron 2018-04-07 22:56:00 No Notes: (Same as: Zofran) MEDICATION WASTE Product Size: 4 mg Product Wasted: ___ mg Orville Ibarra Ketorolac 2018-04-07 22:56:00 No 4 days MEDICATION WASTE Product Size: 30 mg Product Wasted: ___ mg Orville Ibarra Saline Flush 0.9% 2018-04-07 22:56:00 No Notes: (Same as: BD Posiflush) Orville Ibarra Sodium Chloride 0.9% (Bolus) IV 2018-04-07 22:56:00 No 1,000 mL, 1000 ml/hr, Infuse Over: 1 hr, Route: IV, 1,000, Drug form: INJ, ONCE, Priority: STAT, Dosing Weight 61.364 kg, Start date: 04/07/18 17:56:00 CDT, Stop date: 04/07/18 17:56:00 CDT Orville Ibarra tramadol hydrochloride 50 MG Oral Tablet 2018-04-06 20:35:00 Yes 50 mg = 1 tab, PO, Q6H, PRN Pain, X 10 day, # 40 tab, 0 Refill(s) Orville Teagueann pantoprazole 40 mg oral enteric coated tablet 2018-02-23 17:06:0 0 Yes 40 mg = 1 tab, PO, Daily, # 90 tab, 1 Re fill(s), Pharmacy: [facility] [address] [place] [address] [place] benzonatate 200 MG Oral Capsule [Tessalon] 2018-02-23 17:06:00 Yes 200 mg = 1 cap, PO, TID, X 7 day, # 21 cap, 0 Refill(s), Pharmacy: [facility] [address] [place], [place] [address] Fluticasone propionate 0.05 MG/ACTUAT Metered Dose Nasal Spr ay [Flonase] 2018-02-23 17:06:00 Yes 1 spray, NASAL, BID, in each nostril, # 16 gm, 1 Refill(s), Pharmacy: [facility] [address] [place] [address] Fred Ranitidine 150 MG Oral Tablet 2018-02-23 15:54:00 Yes 150 mg = 1 tab, PO, BID, # 60 tab, 0 Refill(s) Charles suraj Ibarra pantoprazole 40 mg oral enteric coated tablet 2018-02-23 15:54:0 0 No 40 mg = 1 tab, PO, Daily, # 30 tab, 0 Refill(s) Orville Fred dicyclomine 20 mg oral tablet 2018-02-23 15:51:00 Yes 40 mg = 2 tab, PO, BID, 0 Refill(s) Orville Teagueann tramadol hydrochloride 50 MG Oral Tablet 2018-02-23 15:51:00 Yes 50 mg = 1 tab, PO, Q6H, PRN Pain, # 40 tab, 0 Refill(s) Orville Ibarra Reglan 2017-12-31 00:32:00 No Notes: (Same as: Reglan) Orville Ibarra Sodium Chloride 0.9% (Bolus) IV 2017-12-31 00:32:00 No 1,000 mL, 1000 ml/hr, Infuse Over: 1 hr, Route: IV, 1,000, Drug form: INJ, ONCE, Priority: STAT, Dosing Weight 62.727 kg, Start date: 12/30/17 19:32:00 CDT, Stop date: 12/30/17 19:32:00 CDT [facility] ranitidine (ZANTAC) 150 MG tablet 2017-12-31 00:00:00 2019 00:00:00 No . [facility] dicyclomine (BENTYL) 20 mg tablet 2017-12-31 00:00:00 2019 00:00:00 No . [facility] Cyclobenzaprine hydrochloride 10 MG Oral Tablet [Flexeril] 2014-07-11 13:11:00 Yes 10 mg, PO, TID, Muscle Spasm, # 30 tab, 0 Refill(s) [facility] Ibuprofen 600 MG Oral Tablet [Motrin] 2014-07-11 13:11:00 Y Special Instructions: take with food [facility] mali Ibarra Zofran ODT 4 mg oral tablet, disintegrating 2013-02-14 20: 23:43 Yes Jose Singh 4 mg, 1 tab, PO, BID, PRN, Dissolve tab under tongue, 10 tab, Nausea and Vomiting, Substitution AllowedDissolve tab under tongue [facility] Fred Sodium Chloride 0.9% (Bolus) IV 1000 mL 2013-02-14 18:28:0 0 No Jose Singh 1,000 mL, Rate: 1,000 ml/hr, Infuse over: 1 hr, Route: IV, Dosing Weight 65.909 kg, Total Volume: 1,000, Priority: STAT, Start date: 02/14/13 13:28:00, Duration: 1 doses or times, Stop date: 02/14/13 14:27:00 Orville Ibarra Saline Flush 0.9% 2013-02-14 18:28:00 No Jose Lopez ey 5 mL, Route: IVP, Drug Form: INJ, Dosing Weight 65.909, kg, PRN, PRN Line Flush, Start date: 02/14/13 13:28:00, Duration: 24 hr, Stop date: 02/15/13 13:27:00 [facility] ondansetron 2013-02-14 18:28:00 No Jose Quiroz Francisco 4 mg, Route: IVP, ONCE, Dosing Weight 65.909, kg, Priority: STAT, Start date: 02/14/13 13:28:00, Stop date: 02/14/13 13:28:00 Orville Borrego rmann Ultram 50 mg oral tablet 2012-11-15 20:38:54 Yes Hector C hristiansen 100 mg, 2 tab, PO, Q6H, PRN, 20 tab, pain, Substitution Allowed [facility] Bactrim oral tablet 2012-11-15 20:38:44 Yes Hectorjaciel Walton iansen 1 tab, PO, BID, 20 tab, Substitution Allowed, Maintenance [facility] Willis 5/325 oral tablet 2012-11-15 20:08:00 No Hector Beaza ristiansen 2 tab, Route: PO, Dosing Weight 65.909, kg, ONCE, STAT, Start date: 11/15/12 14:08:00, Stop date: 11/15/12 14:08:00 Yaw krystynarial [place] Willis 5/325 oral tablet 2012-02-12 17:36:34 Yes Juanito Beltran 1-2 tab, PO, Q4-6H, PRN, 12 tab, Pain, Substitution Allowed, Maintenance [facility] Willis 5/325 oral tablet 2012-02-09 11:35:34 Yes Luis maynard Gregory 1 tab, PO, Q4H, PRN, 10 tab, for pain, Substitution Allowed, Maintenance, TAB [facility] Bactrim DS oral tablet 2012-02-09 11:32:16 Yes Luis Au r Gregory 1 tab, PO, BID, 14 tab, Substitution Allowed, Maintenance [facility] amoxicillin 500 mg oral capsule 2011-08-30 11:20:57 No Renetta Chavez 500 mg, 1 cap, PO, BID, 14 cap, Substitution Allowed, CAP [facility] Unknown Home Medication 2011-08-30 11:10:54 Yes Substitution Allowed, AntibioticsAntibiotics [facility] 5/325 oral tablet 2011-08-30 10:56:20 Yes Renetta Chavez 1 tab, PO, Q4H, PRN, 15 tab, for pain, Substitution Allowed, Maintenance, TAB [facility] Willis 5/325 oral tablet 2011-08-30 10:55:00 No Renetta Chavez 2 tab, Route: PO, Drug Form: TAB, ONCE, Start date: 08/30/11 4:55:00, Stop date: 08/30/11 4:55:00 [facility] Vital Signs Vital Name Observation Time Observation Value Comments Source Systolic blood pressure 2020-08-17 10:45:00 127 mm[Hg] [facility] Diastolic blood pressure 2020-08-17 10:45:00 81 mm[Hg] [facility] Heart rate 2020-08-17 10:45:00 68 /min [facility] Respiratory rate 2020-08-17 10:45:00 15 /min Marciano roca [facility] Oxygen saturation in Arterial blood by Pulse oximetry 2019-10 10:45:00 99 /min [facility] Body temperature 2020-08-17 09:00:00 36.5 Mamta Marciano roca [facility] Body height 2020-08-17 08:29:[address] [facility] Body weight 2020-08-17 08:29:00 58.514 kg [place] BMI 2020-08-17 08:29:00 20.20 kg/m2 [facility] Systolic (mm Hg) 2020-08-11 21:27:00 [facility] Diastolic (mm Hg) 2020-08-11 21:27:00 [facility] Heart Rate 2020-08-11 21:27:00 [facility] Temperature Oral (F) 2020-08-11 21:27:00 98.2 F [facility] Height 2020-08-11 21:27:00 170.18 cm [facility] Weight 2020-08-11 21:27:00 [facility] BMI Calculated 2020-08-11 21:27:00 [facility] [place] Systolic (mm Hg) 2020-08-10 06:30:00 [facility] Diastolic (mm Hg) 2020-08-10 06:30:00 [facility] [place] Heart Rate 2020-08-10 06:30:00 [facility] [place] Respitory Rate 2020-08-10 06:30:00 [facility] [place] Temperature Oral (F) 2020-08-10 06:30:00 98.4 F [facility] [place] Systolic (mm Hg) 2020-08-10 04:20:00 [facility] Diastolic (mm Hg) 2020-08-10 04:20:00 [facility] Heart Rate 2020-08-10 04:20:00 [facility] [place] Respitory Rate 2020-08-10 04:20:00 [facility] [place] Height 2020-08-10 00:02:00 170.18 cm [facility] BMI Calculated 2020-08-10 00:02:00 [facility] [place] Weight 2020-08-10 00:02:00 [facility] Systolic (mm Hg) 2020-08-10 00:02:00 [facility] [place] Diastolic (mm Hg) 2020-08-10 00:02:00 [facility] [place] Heart Rate 2020-08-10 00:02:00 [facility] Respitory Rate 2020-08-10 00:02:00 [facility] Temperature Oral (F) 2020-08-10 00:02:00 98.5 F [facility] Systolic (mm Hg) 2020-07-08 16:35:00 [facility] [place] Diastolic (mm Hg) 2020-07-08 16:35:00 [facility] [place] Heart Rate 2020-07-08 16:35:00 [facility] Temperature Oral (F) 2020-07-08 16:35:00 98.6 F [facility] Height 2020-07-08 16:35:00 170.18 cm [facility] [place] Weight 2020-07-08 16:35:00 [facility] BMI Calculated 2020-07-08 16:35:00 [facility] Systolic blood pressure 2020-06-25 20:53:00 138 mm[Hg] [facility] Diastolic blood pressure 2020-06-25 20:53:00 96 mm[Hg] [facility] Heart rate 2020-06-25 20:53:00 69 /min [facility] Body temperature 2020-06-25 20:53:[address] [facility] Respiratory rate 2020-06-25 20:53:00 18 /min [facility] Body height 2020-06-25 20:53:00 170.2 cm [facility] Body weight 2020-06-25 20:53:00 56.7 kg [facility] BMI 2020-06-25 20:53:00 19.58 kg/m2 [facility] Oxygen saturation in Arterial blood by Pulse oximetry 06-25 20:53:00 98 [facility] 2020-06-15 18:27:00 [facility] Diastolic (mm Hg) 2020-06-15 18:27:00 [facility] [place] Heart Rate 2020-06-15 18:27:00 [facility] [place] Temperature Oral (F) 2020-06-15 18:27:00 98.7 F [facility] Height 2020-06-15 18:27:00 170.18 cm [facility] [place] Weight 2020-06-15 18:27:00 [facility] [place] BMI Calculated 2020-06-15 18:27:00 [facility] Temperature Oral (F) 2020-05-20 23:30:00 98.1 F [facility] [place] Heart Rate 2020-05-20 23:30:00 [facility] Respitory Rate 2020-05-20 23:30:00 [facility] Systolic (mm Hg) 2020-05-20 23:30:00 [facility] [place] Diastolic (mm Hg) 2020-05-20 23:30:00 [facility] Height 2020-05-20 22:38:00 170.18 cm [facility] BMI Calculated 2020-05-20 22:38:00 [facility] Weight 2020-05-20 22:38:00 [facility] Systolic (mm Hg) 2020-05-20 22:38:00 [facility] Diastolic (mm Hg) 2020-05-20 22:38:00 [facility] [place] Heart Rate 2020-05-20 22:38:00 [facility] [place] Respitory Rate 2020-05-20 22:38:00 [facility] [place] Temperature Oral (F) 2020-05-20 22:38:00 98 F [facility] [place] Systolic (mm Hg) 2020-05-15 16:23:00 [facility] Diastolic (mm Hg) 2020-05-15 16:23:00 [facility] [place] Heart Rate 2020-05-15 16:23:00 [facility] Temperature Oral (F) 2020-05-15 16:23:00 99.0 F [facility] Height 2020-05-15 16:23:00 165.1 cm [facility] [place] Weight 2020-05-15 16:23:00 [facility] BMI Calculated 2020-05-15 16:23:00 [facility] [place] Temperature Oral (F) 2020-05-10 23:30:00 98 F [facility] [place] Heart Rate 2020-05-10 23:30:00 [facility] [place] Respitory Rate 2020-05-10 23:30:00 [facility] Systolic (mm Hg) 2020-05-10 23:30:00 [facility] Diastolic (mm Hg) 2020-05-10 23:30:00 [facility] [place] Systolic (mm Hg) 2020-05-10 22:12:00 [facility] Diastolic (mm Hg) 2020-05-10 22:12:00 [facility] Heart Rate 2020-05-10 22:12:00 [facility] [place] Respitory Rate 2020-05-10 22:12:00 [facility] [place] Temperature Oral (F) 2020-05-10 22:12:00 98.2 F [facility] Height 2020-05-10 21:31:00 177.8 cm [facility] BMI Calculated 2020-05-10 21:31:00 [facility] Weight 2020-05-10 21:31:00 [facility] [place] Systolic (mm Hg) 2020-05-10 21:31:00 [facility] Diastolic (mm Hg) 2020-05-10 21:31:00 [facility] [place] Heart Rate 2020-05-10 21:31:00 [facility] Respitory Rate 2020-05-10 21:31:00 [facility] [place] Temperature Oral (F) 2020-05-10 21:31:00 98.1 F [facility] Systolic (mm Hg) 2019-09-11 20:37:00 [facility] [place] Diastolic (mm Hg) 2019-09-11 20:37:00 [facility] [place] Respitory Rate 2019-09-11 20:37:00 [facility] [place] Heart Rate 2019-09-11 20:37:00 [facility] Systolic (mm Hg) 2019-09-11 17:57:00 [facility] [place] Diastolic (mm Hg) 2019-09-11 17:57:00 [facility] Heart Rate 2019-09-11 17:57:00 [facility] [place] Respitory Rate 2019-09-11 17:57:00 [facility] [place] Temperature Oral (F) 2019-09-11 17:57:00 98.0 F [facility] Weight 2019-09-11 17:57:00 [facility] Systolic (mm Hg) 2019-09-04 14:31:00 [facility] [place] Diastolic (mm Hg) 2019-09-04 14:31:00 [facility] Heart Rate 2019-09-04 14:31:00 [facility] [place] Respitory Rate 2019-09-04 14:31:00 [facility] [place] Temperature Oral (F) 2019-09-04 14:31:00 97.6 F [facility] Weight 2019-09-04 14:31:00 [facility] [place] Temperature Oral (F) 2019-06-12 20:37:00 98.3 F [facility] [place] Heart Rate 2019-06-12 20:37:00 [facility] [place] Respitory Rate 2019-06-12 20:37:00 [facility] Systolic (mm Hg) 2019-06-12 20:37:00 [facility] [place] Diastolic (mm Hg) 2019-06-12 20:37:00 [facility] Systolic (mm Hg) 2019-06-12 17:56:00 [facility] Diastolic (mm Hg) 2019-06-12 17:56:00 [facility] [place] Heart Rate 2019-06-12 17:56:00 [facility] Respitory Rate 2019-06-12 17:56:00 [facility] [place] Temperature Oral (F) 2019-06-12 17:56:00 97.7 F [facility] Height 2019-06-12 17:56:00 170.18 cm [facility] BMI Calculated 2019-06-12 17:56:00 [facility] Weight 2019-06-12 17:56:00 [facility] Systolic (mm Hg) 2018-04-08 03:38:00 [facility] [place] Diastolic (mm Hg) 2018-04-08 03:38:00 [facility] [place] Heart Rate 2018-04-08 03:38:00 [facility] Respitory Rate 2018-04-08 03:38:00 [facility] Respitory Rate 2018-04-08 02:40:00 [facility] [place] Heart Rate 2018-04-08 02:40:00 [facility] Temperature Oral (F) 2018-04-08 02:40:00 98.1 F [facility] Systolic (mm Hg) 2018-04-08 02:40:00 [facility] Diastolic (mm Hg) 2018-04-08 02:40:00 [facility] [place] Heart Rate 2018-04-08 00:59:00 [facility] [place] Temperature Oral (F) 2018-04-08 00:59:00 98.0 F [facility] [place] Respitory Rate 2018-04-08 00:59:00 [facility] Systolic (mm Hg) 2018-04-08 00:59:00 [facility] [place] Diastolic (mm Hg) 2018-04-08 00:59:00 [facility] [place] Temperature Oral (F) 2018-04-07 22:53:00 98.1 F [facility] Weight 2018-04-07 22:53:00 [facility] Height 2018-04-07 22:53:00 170.18 cm [facility] BMI Calculated 2018-04-07 22:53:00 [facility] [place] Temperature Oral (F) 2018-04-06 19:38:00 98.2 F [facility] Heart Rate 2018-04-06 19:38:00 [facility] [place] Weight 2018-04-06 19:38:00 [facility] BMI Calculated 2018-04-06 19:38:00 [facility] [place] Height 2018-04-06 19:38:00 170.18 cm [facility] Systolic (mm Hg) 2018-04-06 19:38:00 [facility] [place] Diastolic (mm Hg) 2018-04-06 19:38:00 [facility] Height 2018-02-23 15:25:00 170.18 cm [facility] [place] BMI Calculated 2018-02-23 15:25:00 [facility] Systolic (mm Hg) 2018-02-23 15:25:00 [facility] [place] Diastolic (mm Hg) 2018-02-23 15:25:00 [facility] [place] Temperature Oral (F) 2018-02-23 15:25:00 98.4 F [facility] [place] Heart Rate 2018-02-23 15:25:00 [facility] [place] Weight 2018-02-23 15:25:00 [facility] Temperature Oral (F) 2017-12-31 00:30:00 98.0 F [facility] Height 2017-12-31 00:30:00 170.18 cm [facility] Weight 2017-12-31 00:30:00 [facility] [place] BMI Calculated 2017-12-31 00:30:00 [facility] Respitory Rate 2017-12-31 00:30:00 [facility] [place] Heart Rate 2017-12-31 00:30:00 [facility] Systolic (mm Hg) 2017-12-31 00:30:00 [facility] Diastolic (mm Hg) 2017-12-31 00:30:00 [facility] [place] Weight 2016-01-05 17:49:00 [facility] Height 2016-01-05 17:49:00 170.18 cm [facility] [place] BMI Calculated 2016-01-05 17:49:00 [facility] Heart Rate 2016-01-05 17:49:00 [facility] Temperature Oral (F) 2016-01-05 17:49:00 98.6 F [facility] [place] Respitory Rate 2016-01-05 17:49:00 [facility] [place] Systolic (mm Hg) 2016-01-05 17:49:00 [facility] [place] Diastolic (mm Hg) 2016-01-05 17:49:00 [facility] Diastolic (mm Hg) 2014-07-11 13:53:00 [facility] Systolic (mm Hg) 2014-07-11 13:53:00 [facility] [place] Respitory Rate 2014-07-11 13:53:00 [facility] [place] Heart Rate 2014-07-11 13:53:00 [facility] Respitory Rate 2014-07-11 12:03:00 [facility] [place] Diastolic (mm Hg) 2014-07-11 12:03:00 [facility] [place] Systolic (mm Hg) 2014-07-11 12:03:00 [facility] Heart Rate 2014-07-11 12:03:00 [facility] Diastolic (mm Hg) 2013-05-21 15:42:00 [facility] Temperature Oral (F) 2013-05-21 15:42:00 98.5 F [facility] [place] Systolic (mm Hg) 2013-05-21 15:42:00 [facility] [place] Heart Rate 2013-05-21 15:42:00 [facility] [place] Respitory Rate 2013-05-21 15:42:00 [facility] Temperature Oral (F) 2013-05-21 12:55:00 98.1 F [facility] [place] Respitory Rate 2013-05-21 12:55:00 [facility] [place] Systolic (mm Hg) 2013-05-21 12:55:00 [facility] Diastolic (mm Hg) 2013-05-21 12:55:00 [facility] Heart Rate 2013-05-21 12:55:00 [facility] Weight 2013-05-21 12:55:00 [facility] Weight 2013-02-14 16:57:00 [facility] Height 2013-02-14 16:57:00 162.56 cm [facility] Weight 2012-11-19 13:40:00 [facility] Height 2012-11-19 13:40:00 170.18 cm [facility] [place] Weight 2012-11-15 18:38:00 [facility] [place] Height 2012-02-12 13:06:00 170.18 cm [facility] [place] Weight 2012-02-12 13:06:00 [facility] Weight 2012-02-09 03:51:00 [facility] Height 2012-02-09 03:51:00 170.18 cm [facility] [place] Weight 2011-08-30 10:45:00 [facility] Height 2011-08-30 10:45:00 170.18 cm [facility] [place] Respitory Rate 2011-08-30 10:45:00 [facility] [place] Heart Rate 2011-08-30 10:45:00 [facility] Temperature Oral (F) 2011-08-30 10:45:00 96.8 F [facility] Diastolic (mm Hg) 2011-08-30 10:45:00 [facility] Systolic (mm Hg) 2011-08-30 10:45:00 [facility] Procedures Procedure Date / Time Performed Performing Clinician [facility] e SURGICAL PATHOLOGY REQUEST 2020-08-17 08:51:00 Ronnie Stacy ESOPHAGOGASTRODUODENOSCOPY (EGD) 2020-08-17 08:45:00 Yaw Stacy COLONOSCOPY 2020-08-17 08:45:00 Ronnie Stacy Tiff cherysilvia Dalton MOTILITY STUDY, ESOPHAGUS, USING MANOMETRY 2020-08-17 06:24: 00 Ronnie Stacy COVID-19 QUALITATIVE PCR 2020-08-13 16:13:[address] ABDOMEN PELVIS W CONTRAST 2020-08-07 19:27:44 La Devlin URINE CULTURE 2020-08-07 17:54:00 La Devlin odbenjamin COMPREHENSIVE METABOLIC PANEL 2020-08-07 17:54:00 La Devlin HC COMPLETE BLD COUNT W/AUTO DIFF 2020-08-07 17:54:00 Jj Devlin URINALYSIS SCREEN AND MICROSCOPY, WITH REFLEX TO CULTURE 202 17:54:00 [place] ESTIMATED GFR 2020-08-07 17:54:[address] ABDOMEN PELVIS W CONTRAST 2020-07-16 19:14:02 Juan A Olivarez URINE CULTURE 2020-07-16 18:55:00 Juan A Olivarez ethodist URINALYSIS SCREEN AND MICROSCOPY, WITH REFLEX TO CULTURE 202 18:55:00 Juan A Olivarez HC COMPLETE BLD COUNT W/AUTO DIFF 2020-07-16 17:59:00 Juan Carlos Olivarez COMPREHENSIVE METABOLIC PANEL 2020-07-16 17:59:00 Elizabeth Olivarez LACTIC ACID LEVEL, SEPSIS - NOW AND REPEAT 2X EVERY 3 HOURS 2020-07-16 17:59:00 Juan A Olivarez ESTIMATED GFR 2020-07-16 17:59:00 Juan A Olivarez ethodist [place] MODIFIED BARIUM SWALLOW 2020-06-30 10:25:00 Oscar Lopez Gastroduodenoscopy 2020-05-25 05:00:00 [facility] URINE CULTURE 2020-05-17 15:49:00 Ty, Nupur Dalton URINALYSIS SCREEN AND MICROSCOPY, WITH REFLEX TO CULTURE 15:33:00 Ty, Nupur Dalton CT ABDOMEN PELVIS W CONTRAST 2020-05-17 14:38:40 Ty, Nupur Lemos cecilca Misbah Dalton HC COMPLETE BLD COUNT W/AUTO DIFF 2020-05-17 13:51:00 Ty, Ewa Dalton COMPREHENSIVE METABOLIC PANEL 2020-05-17 13:51:00 Ty, Nupur Dalton LIPASE LEVEL 2020-05-17 13:51:00 Ty, Nupur Dalton ESTIMATED GFR 2020-05-17 13:51:00 Ty, Nupur Dalton Orchiectomy<sup>1</sup> 2004-10-02 00:00:00 [facility] Hernia repair [facility] Hernia repair [facility] Plan of Care Planned Activity Planned Date Details Comments Source Future Scheduled Test 2020-06-02 00:00:00 INFLUENZA VACCINE (#1) [code = INFLUENZA VACCINE (#1)] [facility] Future Scheduled Test 2020-05-02 00:00:00 INFLUENZA VACCINE [code = INFLUENZA VACCINE] Misbah Dalton Encounters Start Date/Time End Date/Time Encounter Type Admission Type [facility] Care Department Encounter ID Source 2020-08-20 14:32:26 2020-08-21 23:59:59 Outpatient [facility] [id number] 2020-08-17 00:00:00 2020-08-17 00:00:00 Outpatient RALPHVannesaTADEO [facility] [id number] Misbah Dalton 2020-08-13 00:00:00 2020-08-13 00:00:00 Outpatient REGIS, TADEO [facility] [id number] Misbah Dalton 2020-08-11 15:15:00 2020-08-11 23:59:59 Outpatient Tu Montero [facility] [id number] 2020-08-09 17:56:01 2020-08-10 00:31:00 Outpatient F Ermelinda loredo [facility] [id number] 2020-08-09 17:56:00 2020-08-09 17:56:00 Emergency E [facility]BL [facility]BL [id number] [facility] 2020-08-07 00:00:00 2020-08-07 00:00:00 Emergency KAREN RIOS [facility] [id number] [facility] 2020-07-16 00:00:00 2020-07-16 00:00:00 Emergency ELIZABETH OLIVAREZ [facility] [id number] [facility] 2020-07-08 11:30:00 2020-07-08 23:59:59 Outpatient Tu Montero [facility] [id number] 2020-07-06 00:00:00 2020-07-06 00:00:00 Outpatient LOPEZ, KYL E [facility] [id number] [facility] 2020-06-30 00:00:00 2020-06-30 00:00:00 Outpatient LOPEZ, KYL E [facility] [id number] [facility] 2020-06-26 11:15:00 2020-06-26 11:15:00 Outpatient Tu Montero [facility] [id number] 2020-06-17 22:11:14 2020-06-18 22:11:14 Outpatient MHMG [facility] [id number] 2020-06-15 13:15:00 2020-06-15 23:59:59 Outpatient Tu Montero [facility] [id number] 2020-06-03 11:33:07 2020-06-04 23:59:59 Outpatient MHMG [facility] [id number] 2020-05-20 17:26:00 2020-05-20 19:07:00 Outpatient Evelia Trotter ep MHSE MHSE [id number] 2020-05-20 17:26:00 2020-05-20 17:26:00 Emergency E MHSE MHSE [id number] [facility] 2020-05-17 00:00:00 2020-05-17 00:00:00 Emergency CHELSEA RICHTER [facility] [id number] Misbah Dalton 2020-05-15 11:30:00 2020-05-15 23:59:59 Outpatient Tu Montero [facility] [id number] 2020-05-10 16:30:22 2020-05-10 18:32:00 Outpatient Yehuda Crenshaw MHSE MHSE [id number] 2020-05-10 16:30:00 2020-05-10 16:30:00 Emergency E MHSE MHSE [id number] [facility] 2019-09-11 11:54:08 2019-09-11 14:38:00 Outpatient Maria Elena Aguilar MHSE MHSE [id number] 2019-09-11 11:54:00 2019-09-11 11:54:00 Emergency E MHSE MHSE [id number] [facility] 2019-09-04 08:27:59 2019-09-04 09:12:00 Outpatient Avila Sesay MHSE MHSE [id number] 2019-09-04 08:27:00 2019-09-04 08:27:00 Emergency E MHSE MHSE [id number] [facility] 2019-06-12 12:53:22 2019-06-12 15:41:00 Outpatient Charles, Orlando Kenney MHSE MHSE [id number] 2019-06-12 12:53:00 2019-06-12 12:53:00 Emergency E MHSE MHSE [id number] [facility] 2018-05-11 15:00:00 2018-05-11 15:00:00 Outpatient Tu Montero [facility] [id number] 2018-04-13 15:03:00 2018-04-13 23:59:00 Outpatient Amadeo Stanford [id number] 2018-04-07 11:48:00 2018-04-08 23:59:59 Outpatient MHMG MHMG [id number] 2018-04-07 17:43:00 2018-04-07 22:41:00 Outpatient F Rachelle mueller MHPL MHPL [id number] 2018-04-06 14:30:00 2018-04-06 23:59:59 Outpatient Tu Montero MG MHMG [id number] 2018-04-05 10:50:00 2018-04-05 10:50:00 Outpatient Alayna Stanford dim Juan Antonio MG MG [id number] 2018-03-30 11:00:00 2018-03-30 11:00:00 Outpatient Tu Montero MG MG [id number] 2018-03-28 12:11:00 2018-03-28 23:59:00 Outpatient Alayna Stanford dim Juan Antonio [facility] [id number] 2018-03-09 14:45:00 2018-03-09 14:45:00 Outpatient Yakov Hooper MH[facility] MH[facility] [id number] 2018-02-23 10:30:00 2018-02-23 23:59:59 Outpatient Tu Montero MG [place] [id number] 2018-01-02 11:20:00 2018-01-02 11:20:00 Outpatient Alayna Stanford dim Juan Antonio MG MG [id number] 2017-12-30 21:35:00 2017-12-30 21:35:00 Registered Emergency Room [facility] [id number] [facility] 2017-12-30 19:28:00 2017-12-30 21:22:00 Outpatient Evelia Trotter MHSE MHSE [id number] 2016-01-05 12:38:00 2016-01-05 13:36:00 Outpatient Amadeo Serrano MHSE MHSE [id number] 2014-07-11 06:52:00 2014-07-11 08:55:00 Outpatient Jose DimasIE MHIE [id number] Results Test Description Test Time Test Comments Results Result Comments Source Surgical pathology request 2020-08-18 11:36:25 Test Item Case number (test code = [id number]) [id number] Surgical pathology report (test code = 9307) See link below for PDF Lab Report Result status (test code = 5323068) This is Final Report for [id number] [facility] [id number] 23:09:23* Test Item Value Reference Range Interpretation Comments Interpretation (test code = 5432430) Negative results do not preclude 2019-nCoV infection and should not be used as the sole basis for treatment or other patient management decisions. Negative results must be combined with clinical observations, patient history, and epidemiological information. COVID-19 qualitative PCR result (test code = 92258-9) Not-Detect ed Not-Detected COVID-19 qualitative PCR (test code = 7070) See link below for P DF Lab Report [facility] [id number] 02:36:0083[facility] PANEL 2020-08-10 02:36:0013[facility]annCHE[facility] [id number] 02:36:000.94[facility]ann[facility] [id number] 02:36:85434Mrikfffs HermannCHEM [id number] 02:36:004.0[facility]ann[facility] [id number] 02:36:13111Kdttqlwr HermannCHEM [id number] 02:36:0032[facility]ann[facility] [id number] 02:36:009.3 [facility] [id number] 02:36:007.8[facility]ann[facility] PANEL 2020-08-10 02:36:003.8[facility]ann[facility] [id number] 02:36:0024[facility]annCHE[facility] [id number] 02:36:0015[facility]annCHE[facility] [id number] 02:36:0071[facility]ann[facility] [id number] 02:36:000.2[facility]ann[facility] [id number] 02:36:008.0[facility] [id number] 02:36:00* Test Item Value Reference Range Interpretation Comments B/C Ratio (test code = B/C Ratio) 14 1 6-25 [facility] [id number] 02:36:004.0[facility]ann[facility] PANEL 2020-08-10 02:36:00* Test Item Value Reference Range Interpretation Comments A/G Ratio (test code = A/G Ratio) 1.0 1 0.7-1.6 [facility]ann[facility] [id number] 02:36:90435Itydambk HermannCHEM PANEL 2020-08-10 02:36:86493Oxnnpifu OaujsksOCZIDTMGLP6670-76-56 02:36:004.0[facility] MkdadpiFHHUDGIGMM2677-74-76 02:36:004.60[facility] ZzjsfpiFPBWXZKDQJ2757-73-93 02:36:0014.4[facility] MwpfwjiPLAPEUCUTL8226-57-48 02:36:0042.0[facility] SIVWLYXQTB3603-81-13 02:36:0091.4[facility] MufykpzKAIBARAQJK6964-93-65 02:36:00* Test Item Value Reference Range Interpretation Comments MCH (test code = MCH) 31.4 pg 27.0-31.0 [facility] BkanngeEOLCEMOOCQ9065-84-41 02:36:0034.4[facility]annHEMATOLOGY 2020-08-10 02:36:0013.3[facility] SqumblfLDJNYFEZAB1129-94-79 02:36:17302Lzebqhqb WmpvpnsCUODENBNVN3011-71-37 02:36:006.6[facility] HgafgmxMUNYANFMGC4360-97-90 02:36:0033.8[facility] LvuklimCFAIROUNMP0948-61-63 02:36:0047.0[facility] HGHPQQIOGG3362-21-58 02:36:0015.2[facility] FecnrimSKZCRXBHPJ3784-80-89 02:36:00 3.2[facility] XzgfjhvZFWASMVWUR2660-44-03 02:36:000.8[facility]annHEMATOLOGY 2020-08-10 02:36:001.3[facility] GzvknkvGOXAPOFARG5125-82-62 02:36:001.9[facility] SsqqsodIPBUZHDLBZ0940-98-62 02:36:000.6[facility] YbexczyQFWIXKMRIR5897-22-56 02:36:000.1[facility]ann[facility]INE AND HTITU1356-65-29 02:36:00Yellow *NA*(08/09/20 8:36 PM)[facility] [id number] 02:36:00Clear (08/09/20 8:36 PM)[facility] [id number] 02:36:00* Test Item Value Reference Range Interpretation Comments UA Spec Grav (test code = UA Spec Grav) 1.019 1 [facility] [id number] 02:36:00* Test Item Value Reference Range Interpretation Comments UA pH (test code = UA pH) 6.0 1 5.0-8.0 [facility] [id number] 02:36:00Negative *NA*(08/09/20 8:36 PM) [facility] [id number] 02:36:00Negative (08/09/20 8:36 PM) [facility] [id number] 02:36:00Negative (08/09/20 8:36 PM) [facility] [id number] 02:36:00Negative (08/09/20 8:36 PM) [facility] [id number] 02:36:001[facility] [id number] 02:36:001[facility] HermannCT Abdomen Pelvis W Abqngxsb0599-20-55 19:42:54Hm Interface, Radiology Results - 08/07/2020 7:46 PM CSTEXAMINATION: CT ABDOMEN PELVIS W CONTRASTCLINICAL HISTORY: abd painTECHNIQUE: Multiple axial images of the abdomen and pelvis were obtained following intravenous administration of iodinated contrast. Sagittal and coronal computerized reformatted images were also obtained. Radiation dose reduction technique was utilized.COMPARISON: 07/16/2020IMPRESSION:Abdomen:1. Liver, spleen, pancreas, adrenals, and kidneys are normal.2.There is no retroperitoneal adenopathy or ascites.3.There are no dilated or thickened loops of bowel.4.Scans through the lung bases are normal.Pelvis:1. Again, the appendix is not clearly visualized. No right lower quadrant inflammatory process is seen.2.No pelvic mass, adenopathy, or fluid collection.[facility]-[id number] [facility] Comprehensive metabolic [id number] 18:24:27* Test Item Value Reference Range Interpretation Comments Sodium (test code = 2951-2) 135 135- 148 mEq/L Potassium (test code = 2823-3) 3.6 3.5- 5.0 mEq/L Chloride (test code = 5-0) 98 98- 112 mEq/L CO2 (test code = 2027-9) 27 24- 31 mEq/L Anion gap (test code = 81607-3) 10@ANIO 7- 15 mEq/L BUN (test code = 3094-0) 15 mg/dL 6-20 Creatinine (test code = 2160-0) 0.94 mg/dL 0.7-1.2 Glucose (test code = 2345-7) 129 mg/dL 65-99 H Calcium (test code = 19042-0) 9.6 mg/dL 8.3-10.2 Protein (test code = 2885-2) 7.3 g/dL 6.3-8.3 Albumin (test code = 1751-7) 4.4 g/dL 3.5-5 A/G ratio (test code = 1759-0) 1.5 0.7-3.8 Alkaline phosphatase (test code = 6768-6) 73 U/L 40-129 AST (test code = 1920-8) 21 U/L 10-50 ALT (test code = 1742-6) 19 U/L 5-50 Total bilirubin (test code = 1974-2) 0.3 mg/dL 0.2-1.2 Lab Interpretation (test code = 73367-1) [facility] [id number] 18:24:25* Test Item Value Reference Range Interpretation Comments Estimated GFR (test code = 5488) >=90 mL/min/1.73 m2 Catergory Units InterpretationG1 >=90 Normal or highG2 60-89 Mildly punxawqbxK8i 45-59 Mildly to moderately pwttiddobK1f 30-44 Moderately to severely decreasedG4 15-29 Severely decreasedG5 <15 Kidney failureThe eGFR was calculated using the Chronic Kidney Disease Epidemiology Collaboration (CKD-EPI) equation. Interpretation is based on recommendations of the National Kidney Foundation-Kidney Disease Outcomes Quality Initiative (NKF-KDOQI) published in 2014. Misbah DaltonUrine tvdbcqd6978-17-09 18:19:36* Test Item Value Reference Range Interpretation Comments Urine culture (test code = 6330442) SEE COMMENT Bacteriuria screen negative. Misbah MethodistUrinalysis screen and microscopy, with reflex to culture 2020-08-07 18:19:36* Test Item Value Reference Range Interpretation Comments Specimen site (test code = 8488491) Clean catch Color, UA (test code = 5778-6) Yellow Appearance, UA (test code = 5767-9) Clear Specific gravity, UA (test code = 5811-5) 1.023 1.001-1.030 pH, UA (test code = 5803-2) 6.0 5.0-9.0 Protein, UA (test code = 92153-7) Negative Negative Glucose, UA (test code = 03041-5) Negative Negative Ketones, UA (test code = 2514-8) Negative Negative Bilirubin, UA (test code = 5770-3) Negative Negative Blood, UA (test code = 5794-3) Negative Negative Nitrite, UA (test code = 5802-4) Negative Negative Urobilinogen, UA (test code = 57565-5) <2.0 <2.0 E.U./dL Leukocyte esterase, UA (test code = 5799-2) Negative Negative WBC, UA (test code = 5821-4) 1 0- 1 /HPF RBC, UA (test code = 96194-7) 2 0- 5 /HPF Bacteria, UA (test code = 23858-0) None seen None seen Yeast, UA (test code = 71809-0) None seen Yeast with pseudohyphae, UA (test code = 26291-1) None seen [place] MethodistCBC with platelet and xsenxjlkbtmu0367-01-66 18:04:31* Test Item Value Reference Range Interpretation Comments WBC (test code = 24431-6) 5.1 4.5- 11.0 k/uL RBC (test code = 71977-6) 4.54 m/uL 4.4-6 HGB (test code = 718-7) 14.1 g/dL 14-18 HCT (test code = 4544-3) 41.0 % 41-51 MCV (test code = 787-2) 90.3 fL 82-100 MCH (test code = 785-6) 31.1 pg 27-34 MCHC (test code = 786-4) 34.4 g/dL 31-37 RDW - SD (test code = 61919-0) 39.6 fL 37-55 MPV (test code = 77207-0) 8.9 fL 6.9-11 Platelet count (test code = 28374-2) 282 K/uL 150-400 Nucleated RBC (test code = 15755-0) 0.00 /100 WBC Neutrophils (test code = 32906-4) 51.0 % 39-69 Lymphocytes (test code = 92488-3) 36.1 % 25-45 Monocytes (test code = 75456-8) 10.5 % 0-10 H Eosinophils (test code = 09723-2) 1.6 % 0-5 Basophils (test code = 92075-2) 0.6 % 0-1 Immature granulocytes (test code = 71940-9) 0.2 % 0-1 Lab Interpretation (test code = 29940-7) Abnormal [place] MethodistLactic acid level, SEPSIS - Now and repeat 2x every 3 hours 2020-07-16 18:29:25* Test Item Value Reference Range Interpretation Comments Lactic acid (test code = 29719-9) 1.6 mmol/L 0.5-2.2 [place] MethodistFL Modified Barium Hfqazfh8471-41-12 11:31:13Hm Interface, Radiology Results 06/30/2020 11:34 AM CDTEXAMINATION: [place] MODIFIED BARIUM SWALLOWCLINICAL HISTORY: K21.0 Gastro-esophageal reflux disease with esophagitis, Esophageal refluxCOMPARISON: None.TECHNIQUE: Esophagram was performed with effervescent granules and barium, as well as requested marshm allow and bagel consistencies in prone/ADORNO positioning.Fluoroscopy Time: 3.3 min Dose: 12 mGyIMPRESSION:1. Swallow: Primary peristalsis is normal, with only a f ew disordered tertiary contractions. Esophagus was distensible. The mucosa and m otility were within normal limits. There is no evidence of stricture.2. Gastroe sophageal junction: No evidence of hiatal hernia. No radiographically apparent r eflux with ADORNO positioning, or provocative cough/possible maneuvers.3. Visualiz ed portions of the stomach and proximal small bowel unremarkable.[id number] [place] MethodistCHEM CBDUH3961-26-66 20:08:0086[facility] HermannCHEM PANEL 2020-06-15 20:08:0015[facility] HermannCHEM HTVQK4268-74-73 20:08:001.00[facility] HermannCHEM SLDSG4630-31-57 20:08:35827Tnizeyoh HermannCHEM ALRVZ2582-70-95 20:08:74007Svphuwoh HermannCHEM CRQSU4480-98-33 20:08:24745[place] HermannCHEM YCFMM8966-31-51 20:08:004.0[facility] HermannCHEM NSBJZ5797-50-83 20:08:48307 [facility]annCHEM SNMYK9568-01-44 20:08:0031[facility] HermannCHEM PANEL 2020-06-15 20:08:009.8[facility] HermannCHEM ISKAN5553-11-58 20:08:007.3[facility] HermannCHEM HCFQE3451-43-67 20:08:004.8[facility] HermannCHEM MKIJE5808-76-97 20:08:002.5[facility] HermannCHEM NHTLN2542-43-93 20:08:001.9[facility] HermannCHEM ZDCGD1911-68-81 20:08:000.4[facility] HermannCHEM AVJGP3427-78-49 20:08:0053 [facility]annCHEM FHRVY8252-08-94 20:08:0014[facility] HermannCHEM PANEL 2020-06-15 20:08:0010[facility] YdkbcfaWKOJQKXWDG1834-26-77 20:08:004.5[facility] XieqtifZCVCKBROLF6004-52-85 20:08:004.39[facility] HqejvkdMNGJNNXXHD6103-46-94 20:08:0013.6[facility] YguvnzsOFNNQYNDNA3381-92-87 20:08:0040.4[facility] [place] VUBRMNDVHP1730-05-85 20:08:0092.0[facility] TeneetoWLHLKPZVLI1799-47-60 20:08:00* Test Item Value Reference Range Interpretation Comments MCH (test code = MCH) 31.0 pg 27.0-33.0 [facility] NzdiibcAJJQYCQNUA5353-44-79 20:08:0033.7[facility] HermannHEMATOLOGY 2020-06-15 20:08:0013.3[facility] MdqqgscRNZQBDGMFO0301-20-76 20:08:12662Qlgiftfr WfvxvmgVCADQWIBWB5209-21-01 20:08:009.3[facility] PlizqnxJAEEXNKXFD2973-21-17 20:08:888605Eibeqdro VzfwuwtWQGLRNQEZW5925-27-57 20:08:885213Cwojuwhy Fred XWVCMKORQS6444-85-24 20:08:17354Gfpqtquh RalifqoUJVDUUIQSQ6346-50-65 20:08:0081 [facility] RndpsbbKAYWCAJXEG4892-41-19 20:08:0041[facility] HermannHEMATOLOGY 2020-06-15 20:08:0042.4[facility] RwqvwzfWIHBRDAHEM9232-41-36 20:08:0042.1[facility] RzrefwtEOIJVYKJQA1973-12-66 20:08:0012.8[facility] ZwomyaaVWMCXHEOUZ9318-30-58 20:08:001.8[facility] HqrrplcTYOOVQFCHI9316-71-95 20:08:000.9[facility] JFIIKF9668-18-19 20:08:66561Mrlfcsxp EwrxdpzCAROTD0334-75-14 20:08:0046[facility] DhzfuyyWKHOJH6521-62-99 20:08:0051[facility] GumhqtoHNLGEB4563-40-58 20:08:0066 [facility] ShmrnmrVZTBHM6119-70-27 20:08:002.7[facility] LgtozcqZIMVIO8738-41-51 20:08:0079[facility] HermannSPECIAL OVSOLQFOV8872-43-97 20:08:005.4[facility] HermannLipase vasjc1104-82-78 14:15:58* Test Item Value Reference Range Interpretation Comments Lipase (test code = 3040-3) 31 U/L 13-60 [place] IbfkyqrswKCMCN6850-14-36 22:03:00Negative (05/10/20 5:03 PM)[facility] HermannCHEM LUURE1383-82-67 19:46:002.1[facility] HermannCARDIAC ICNMMEM1075-75-94 18:56:00<0.02[facility] HermannCHEM SMZJL4469-29-34 18:56:86069Zjzuelxu Fred DSZIIOKNFKIT4774-19-10 18:56:009.2[facility] KazmjeoCDGQBEKCANYY4473-65-35 18:56:00* Test Item Value Reference Range Interpretation Comments B/C Ratio (test code = B/C Ratio) 13 1 6-25 [facility] ObdrlumAKONUWFJFUWV7295-43-28 18:56:003.5[facility] HermannELECTROLYTES 2019-06-12 18:56:00* Test Item Value Reference Range Interpretation Comments A/G Ratio (test code = A/G Ratio) 1.2 1 0.7-1.6 [facility] UpldspgXQBNWJSCVJCB9519-07-14 18:56:0082[facility] HermannELECTROLYTES 2019-06-12 18:56:0012[facility] BrhwprtESGAENSEPMGX5352-71-85 18:56:000.91[facility] RnxekrnDBJNYSUHQRTL3189-78-22 18:56:20111Yqsyqfav PehathwXTQFSTTMAXSB8569-97-46 18:56:004.2[facility] GohusvnFYSGBOPMXYDQ6515-47-11 18:56:79518Yugervmf [place] UJIUKZSQOFQF1135-43-26 18:56:0027[facility] CpcohtcECSRZKWYUXLV9397-87-68 18:56:00 8.9[facility] PrjjbkmSZIUILYQTLMH2409-07-71 18:56:007.7[facility] IORYOAEIHGZV1609-39-95 18:56:004.2[facility] OtrdugdVLUYIQAYCDUK5688-44-18 18:56:0022[facility] JnzqqcaDIDDMRHOBVXU4185-73-14 18:56:0021[facility] DCDPSVLGCFNM7578-15-13 18:56:0070[facility] OphwrabEFRJZAROJFOK3456-77-29 18:56:00 0.5[facility] RgwmnzqTYSKJRCBHBQE3308-61-52 18:56:20720Rypqnlmo HermannHEMATOLOGY 2019-06-12 18:56:0045.2[facility] FfefnhtCBNGHMNTYD7047-06-48 18:56:0040.4[facility] DfzuypwJEMMHMZDWY3019-80-85 18:56:0012.0[facility] HfnmxzlSYHVDVLRUF4759-59-15 18:56:001.7[facility] LhvxhscOAGGTCWYKS4666-52-02 18:56:000.7[facility] [place] XZLAUMUBSY5021-54-18 18:56:001.7[facility] AzjuqzgVKEQJTAHNO9946-21-90 18:56:001.6 [facility] XtubfqsLTWQWMSUXM1739-56-37 18:56:000.5[facility] HermannHEMATOLOGY 2019-06-12 18:56:000.1[facility] HldhofnEDGYDZXITR3674-19-12 18:56:003.9[facility] WwmithfDNERRYFLWO5116-86-94 18:56:004.81[facility] GtbxpqnVAASKKQVRP7072-52-07 18:56:0015.3[facility] VdxtwgbKNLDFNIIGV3601-61-93 18:56:0045.3[facility] [place] NGMMWWBYOW8739-56-09 18:56:0094.2[facility] HrzgnuyIBZXTJPVOO7580-01-86 18:56:00* Test Item Value Reference Range Interpretation Comments MCH (test code = MCH) 31.9 pg 27.0-31.0 [facility] EdzjoiePEOAUNOTLG3870-97-76 18:56:0033.9[facility] HermannHEMATOLOGY 2019-06-12 18:56:0013.4[facility] UifefnjHKOZUTUAGK9203-46-68 18:56:19260Upvmziav RejbqxvZIBILNVQAA5964-01-47 18:56:006.7[facility] Fred- XR CHEST 1 Y6687-71-87 23:34:00 Name: OSCAR RENDON [facility] : 1990 Age/S: 29 / M [address] [place] Unit #: [id number] Loc: [place] [address] Phys: Era Tolentino MD Acct: [id number] Dis Date: Status: REG ER PHONE #: [phone] Exam Date: 06/10/2019 2320 FAX #: Reason: cp EXAMS: CPT: [id number] XR CHEST 1 V 11950 Fluoro Time: DAP (Gy m2): Air Kerma (mGy): LOCATION: T18 EXAM: CHEST 1 VIEW INDICATION: Chest pain COMPARISON: Chest x-ray December 18, 2018 TECHNIQUE: AP chest radiograph. FINDINGS: Lungs are clear bilaterally without effusion. Heart is normal in size. Bones and peripheral soft tissues are unremarkable. IMPRESSION: Lungs are clear. No acute abnormality. at 1714 Reported and signed by: Samson Poole M.D. CC: Era Tolentino MD PAGE 1 Signed Report Name: OSCAR RENDON [facility] : 1990 Age/S: 29 / M [address] [place] Unit #: [id number] Loc: [place] [address] Phys: Era Tolentino MD Acct: [id number] Dis Date: Status: REG ER PHONE #: [phone] Exam Date: 06/10/2019 2320 FAX #: Reason: cp EXAMS: CPT: [id number] XR CHEST 1 V 45233 Fluoro Time: DAP (Gy m2): Air Kerma (mGy): <Continued> Technologist: Thania Bryant, RT(R); Sandy Mittal RT(R)(CT)(MRI) [facility] Date/Time: 06/10/2019 (2334) t.SDR.JP19 Orig Print D/T: S: 06/10/2019 (3700) PAGE 2 Signed Report - XR CHEST 2 R8630-52-31 00:48:00 FAX: Elliott Huff MD [phone] [place]: St: REG Name: OSCAR RUVALCABA [facility] Mark Gonsalez : [birth year] Age/S: 28/M [address] [place] [address] Blvd Unit #: [id number] Loc: [place] [address] Phys: Elliott Huff MD Acct: [id number] Dis Date: Status: REG ER PHONE #: [phone] Exam Date: 12/18/201845 FAX #: [phone] Reason: cough EXAMS: CPT CODE: [id number] XR CHEST 2 V 23236 Chest, 2 views dated 12/18/2018. HISTORY: Cough. Bronchitis. Comparison is made to a prior study dated 01/30/2018. The heart is normal in size. The cardi omediastinal shadow appears within normal limits. The lungs appear clear. The pulmonary vasculature is normal in caliber. No acute pleural space abnormalities are detected. IMPRESSION: 1. No rad iographic evidence of acute cardiopulmonary disease. SL: 131 at 0048 Re ported and signed by: Dmitry Boyer M.D. CC: Farzaneh Huff MD Technologist: Roxanne newton RT(R) Trnscrd Date/Time/By: 12/18/2018 (0048 ) : By: JoelDMM Orig Print D/T: S: 12/18/2018 (005) PAGE 1 Signed Report URINE AND OUSXU8704-73-76 00:56:00<1[facility]annURINE AND LJDHD2604-18-52 00:56:001[facility]UR[facility] AND YBAXC7900-55-52 00:56:00Negative (04/07/18 7:56 PM)[facility] AND TXATY2750-09-56 00:56:00Negative (04/07/18 7:56 PM) [facility] GWPMT7887-76-39 00:56:00Negative *NA*(04/07/18 7:56 PM) [facility] EBSPQ1148-43-16 00:56:00Negative (04/07/18 7:56 PM) [facility] AND GICIP9985-66-47 00:56:00* Test Item Value Reference Range Interpretation Comments UA pH (test code = UA pH) 7.0 1 5.0-8.0 [facility] AND NPRTC1030-83-51 00:56:00* Test Item Value Reference Range Interpretation Comments UA Spec Grav (test code = UA Spec Grav) 1.021 1 [facility] AND DJJDX7982-70-98 00:56:00Yellow *NA*(04/07/18 7:56 PM) [facility] AND NLJGC7974-25-57 00:56:00Clear (04/07/18 7:56 PM)[facility] HermannCHEM HUIQW9876-36-11 00:50:41964Hjftbxqg HermannCHEM DJVXU1107-41-20 00:50:58113Uisrinkw HermannCHEM KTNLG1314-78-08 00:50:003.9[facility] HermannCHEM OSFZN0539-44-56 00:50:007.1[facility] HermannCHEM YUJYU9586-02-19 00:50:003.7 [facility]annCHEM BONKU7714-99-27 00:50:008.7[facility] HermannCHEM PANEL 2018-04-08 00:50:83405Ysfczazs HermannCHEM XDWBU6610-57-04 00:50:0027[facility] HermannCHEM VIXIM6422-62-35 00:50:0036[facility] HermannCHEM FGNRD5141-34-80 00:50:0066[facility] HermannCHEM WSAOA5986-12-67 00:50:0064[facility] HermannCHEM UMEKW7978-96-54 00:50:000.2[facility] HermannCHEM ZSSOS8693-09-30 00:50:52181 [facility]annCHEM ZCORB5655-70-61 00:50:0094[facility] HermannCHEM PANEL 2018-04-08 00:50:0015[facility] HermannCHEM YXOOL0729-13-30 00:50:000.82[facility] HermannCHEM FOMSP6514-77-33 00:50:003.4[facility] HermannCHEM DCJBT4806-70-55 00:50:0012.9[facility] HermannCHEM LARLY9548-57-44 00:50:00* Test Item Value Reference Range Interpretation Comments B/C Ratio (test code = B/C Ratio) 18 1 6-25 [facility] HermannCHEM VXKWI6952-44-11 00:50:00* Test Item Value Reference Range Interpretation Comments A/G Ratio (test code = A/G Ratio) 1.1 1 0.7-1.6 [facility] UnfijlrFIHNKEVWDW8808-73-46 00:50:00* Test Item Value Reference Range Interpretation Comments INR (test code = INR) 0.95 1 0.85-1.17 [facility] DrlejjoLJCQPMEOCA9184-14-62 00:50:00* Test Item Value Reference Range Interpretation Comments PT (test code = PT) 12.7 s 12.0-14.7 [facility] LvpjkqzQVALMPOSYU6395-42-32 00:50:00* Test Item Value Reference Range Interpretation Comments PTT (test code = PTT) 30.4 s 22.9-35.8 [facility] OgyevpeYFXDXYHCEB7282-42-63 00:50:006.9[facility] HermannHEMATOLOGY 2018-04-08 00:50:50803Twtkkyhk GojocjaWUWCDMYZKS7679-16-95 00:50:0038.9[facility] JsajbweBIAMWOGTJX2135-59-29 00:50:0091.7[facility] HogbhjaPRKENISTUT8785-53-91 00:50:00* Test Item Value Reference Range Interpretation Comments MCH (test code = MCH) 31.8 pg 27.0-31.0 [facility] HqnxfqyMBCRVFEXJZ6769-44-00 00:50:0013.9[facility] HermannHEMATOLOGY 2018-04-08 00:50:0034.7[facility] EijrssvMHXXFRSCST9041-48-99 00:50:005.9[facility] SrfysecWAGDGIRCIP0928-32-89 00:50:004.24[facility] BkblsjwXRCDXDESMW1215-94-03 00:50:0013.5[facility] FdwomxrLSGTBHCNDD8588-62-51 00:50:000.1[facility] YOLDEHKLGF1555-22-14 00:50:002.6[facility] JiktvgpPTQPGOGNYL2746-38-27 00:50:001.7 [facility] PywhytpTHPLXTWHZB0835-60-23 00:50:001.1[facility] HermannHEMATOLOGY 2018-04-08 00:50:0044.1[facility] IjdutmhBEKGWPQTSH3920-17-35 00:50:0011.8[facility] FylwgakVIITHHACYJ9138-99-17 00:50:0041.3[facility] RhijaxiENMJJPADSR0407-69-79 00:50:000.7[facility] TaepltwMFNLXAQDNU4067-90-83 00:50:002.4[facility] TRLDNRGOJA3800-19-10 00:50:000.1[facility]annCOM[facility]HENS[facility] METABOLIC PANEL 2018-01-01 23:23:00* Test Item Value Reference Range Interpretation Comments TOTAL PROTEIN (BEAKER) (test code = 770) 7.7 gm/dL 6.0-8.5 ALBUMIN (BEAKER) (test code = 1145) 4.4 g/dL 3.5-5.0 ALKALINE PHOSPHATASE (BEAKER) (test code = 346) 59 U/L 30-115 BILIRUBIN TOTAL (BEAKER) (test code = 377) 0.6 mg/dL 0.1-1.2 SODIUM (BEAKER) (test code = 381) 140 meq/L 135-148 POTASSIUM (BEAKER) (test code = 379) 4.2 meq/L 3.6-5.5 CHLORIDE (BEAKER) (test code = 382) 100 meq/L 98-106 CO2 (BEAKER) (test code = 355) 31 meq/L 24-32 BLOOD UREA NITROGEN (BEAKER) (test code = 354) 11 mg/dL 10-26 CREATININE (BEAKER) (test code = 358) 0.88 mg/dL 0.50-1.20 GLUCOSE RANDOM (BEAKER) (test code = 652) 90 mg/dL 70-110 CALCIUM (BEAKER) (test code = 697) 9.5 mg/dL 8.5-10.5 AST (SGOT) (BEAKER) (test code = 353) 25 U/L 5-40 ALT (SGPT) (BEAKER) (test code = 347) 24 U/L 5-50 EGFR (BEAKER) (test code = 1092) 126 mL/min/1.73 sq m ESTIMATED GFR IS NOT ACCURATE CREATININE CLEARANCE IN PREDICTING GLOMERULAR FILTRATION RATE. ESTIMATED GFR IS NOT APPLICABLE FOR DIALYSIS PATIENTS. VIHXVC7954-07-43 23:23:00* Test Item Value Reference Range Interpretation Comments LIPASE (BEAKER) (test code = 749) 128 U/L 40-240 URINALYSIS W/ JOKTZOOUYVJ3980-40-39 23:21:00* Test Item Value Reference Range Interpretation Comments COLOR (BEAKER) (test code = 470) Yellow CLARITY (BEAKER) (test code = 469) Clear SPECIFIC GRAVITY UA (BEAKER) (test code = 468) 1.015 1.001-1 .035 PH UA (BEAKER) (test code = 467) 8.0 5.0-8.0 PROTEIN UA (BEAKER) (test code = 464) Negative Negative GLUCOSE UA (BEAKER) (test code = 365) Negative Negative KETONES UA (BEAKER) (test code = 371) Negative Negative BILIRUBIN UA (BEAKER) (test code = 462) Negative Negative BLOOD UA (BEAKER) (test code = 461) Negative Negative NITRITE UA (BEAKER) (test code = 465) Negative Negative LEUKOCYTE ESTERASE UA (BEAKER) (test code = 466) Negative Negat maura UROBILINOGEN UA (BEAKER) (test code = 463) 0.2 mg/dL 0.2-1.0 BACTERIA (BEAKER) (test code = 517) Rare MUCUS (BEAKER) (test code = 1574) Occasional RBC UA-MANUAL (BEAKER) (test code = 1659) <5 /HPF WBC UA-MANUAL (BEAKER) (test code = 1661) <5 /HPF SQUAMOUS EPITHELIAL MANUAL (BEAKER) (test code = 1663) <5 /HPF SOURCE(BEAKER) (test code = 0778) CBC W/PLT COUNT & AUTO HXVJSNPEIWIU7540-09-71 23:14:00* Test Item Value Reference Range Interpretation Comments WHITE BLOOD CELL COUNT (BEAKER) (test code = 775) 4.9 10e3/ L 4.0- 10.0 RED BLOOD CELL COUNT (BEAKER) (test code = 761) 4.55 10e6/ L 4.20-5 .80 HEMOGLOBIN (BEAKER) (test code = 410) 14.4 g/dL 13.0-16.8 HEMATOCRIT (BEAKER) (test code = 411) 42.9 % 40.0-50.0 MEAN CORPUSCULAR VOLUME (BEAKER) (test code = 753) 94.3 fL 82. 0-98.0 MEAN CORPUSCULAR HEMOGLOBIN (BEAKER) (test code = 751) 31.7 pg 27.0-33.0 MEAN CORPUSCULAR HEMOGLOBIN CONC (BEAKER) (test code = 752) 33.7 g/dL 32.0-36.0 RED CELL DISTRIBUTION WIDTH (BEAKER) (test code = 412) 12.8 % 10.3-14.2 PLATELET COUNT (BEAKER) (test code = 756) 277 10e3/ L 150-430 MEAN PLATELET VOLUME (BEAKER) (test code = 754) 6.5 fL 6.5-10 .5 NEUTROPHILS RELATIVE PERCENT (BEAKER) (test code = 429) 36 % LYMPHOCYTES RELATIVE PERCENT (BEAKER) (test code = 430) 52 % MONOCYTES RELATIVE PERCENT (BEAKER) (test code = 431) 9 % EOSINOPHILS RELATIVE PERCENT (BEAKER) (test code = 432) 2 % BASOPHILS RELATIVE PERCENT (BEAKER) (test code = 437) 1 % NEUTROPHILS ABSOLUTE COUNT (BEAKER) (test code = 670) 1.76 10e3/ L 1.80-8.00 L LYMPHOCYTES ABSOLUTE COUNT (BEAKER) (test code = 414) 2.57 10e3/ L 1.48-4.50 MONOCYTES ABSOLUTE COUNT (BEAKER) (test code = 415) 0.45 10e3/ L 0. 00-1.30 EOSINOPHILS ABSOLUTE COUNT (BEAKER) (test code = 416) 0.10 10e3/ L 0.00-0.50 BASOPHILS ABSOLUTE COUNT (BEAKER) (test code = 417) 0.03 10e3/ L 0. 00-0.20 BJUGQMBMP5730-51-72 18:53:86569Sxhefela BiqycbeRUSDEHJOK9650-38-59 18:53:009.5 [facility] MapccevYLXGFUKMV9180-74-15 18:53:0030[facility] HermannCHEMISTRY 2013-02-14 18:53:008.4[facility] NwltqytDBHAJJHGD5776-96-14 18:53:004.2[facility] TbukpgdLPUBWMMMR4493-08-33 18:53:20083Fyoumfgg UjtbfwgLLPZHWGYZ3646-34-80 18:53:84256Zhjvtces FtborosOVDDXKHPZ9675-97-77 18:53:004.6[facility] DPQDZJWHZ1595-26-13 18:53:0020[facility] YoueffiRFLEZIQFA9077-97-46 18:53:000.8 [facility] MoytiwwSOTBKCYTR4528-18-76 18:53:0078[facility] HermannCHEMISTRY 2013-02-14 18:53:000.5[facility] AgidmnnDKZOSILJY6434-06-15 18:53:0020[facility] YqngkupEZAWMBRDQ4577-79-28 18:53:0016[facility] ShhfidlKUNFWNJIE3331-02-48 18:53:0081[facility] JodzlhdUQJMNQOBA5580-53-26 18:53:003.8[facility] CVQRWCMBT2598-44-16 18:53:001.2[facility] XgqgahrEFHOVFPDA4168-51-11 18:53:0010.2 [facility] YdtqekyQTTDZGBER3988-77-17 18:53:0020[facility] HermannHEMATOLOGY 2013-02-14 18:53:000.3[facility] PfvrhwbNHJSIKVZOT1506-52-62 18:53:003.0[facility] YcgebciOUODIGAGEX2784-81-23 18:53:000.7[facility] QoqevidJJDQTZJLVF2049-38-65 18:53:0029.4[facility] UexkuvuFZHKTQOAWP3423-98-88 18:53:0012.9[facility] COGCWNGFPP9986-28-36 18:53:0056.1[facility] AdkuxlsIDVOXNCAFP9518-58-67 18:53:00 Normal (02/14/2013 13:53:00) [facility] ApqwboiHQSFFGTQZN0592-77-19 18:53:001.3 [facility] UqxbnyfNKDZAUARDN8525-70-45 18:53:00Normal (02/14/2013 13:53:00) [facility] IksovjeLBEHCAGPFK4844-55-35 18:53:001.6[facility]OLOGY 2013-02-14 18:53:000.1[facility] KvzggpcTJTXODJFBS6148-06-07 18:53:000.0[facility] OvkkxwzSZVVGOPLON3417-17-40 18:53:0013.0[facility] XdyimqdCRXMRRWDGF3141-92-66 18:53:004.78[facility] RwvkmxmDIAURSEMBZ5617-92-32 18:53:005.3[facility] YHIZUEQXFP4825-99-23 18:53:007.4[facility] FgszwsiDMIIVWTBPX7087-26-90 18:53:58249 [facility] JgrpwxrBAJFIONKTK8990-65-27 18:53:0045.0[facility]annHEMATOLOGY 2013-02-14 18:53:0015.4[facility] MxdpcyeBAXBPAJMEA7842-90-35 18:53:0094.2[facility] QtmqxtdHRPLKJVIZI8037-13-53 18:53:00* Test Item Value Reference Range Interpretation Comments MCH (test code = MCH) 32.1 pg 27.0-31.0 H [facility] LfwpmwqGSERJBAOCH8511-22-49 18:53:0034.1[facility]annURINALYSIS 2013-02-14 18:53:00Negative (02/14/2013 13:53:00) [facility] 2013-02-14 18:53:00Trace *ABN*(02/14/2013 13:53:00) [facility] 2013-02-14 18:53:00Slight Cloudy (02/14/2013 13:53:00) [facility] HRQDOGGVAG4805-67-70 18:53:00>=1.030 *ABN*(02/14/2013 13:53:00) [facility] KdrhllkEKXRVIMYIQ5711-90-79 18:53:00* Test Item Value Reference Range Interpretation Comments UA pH (test code = UA pH) 6.0 1 5.0-8.0 N [facility] ZzlceboBKOAAPPZFV3938-04-96 18:53:00Negative (02/14/2013 13:53:00) [facility] AzxbgfcKWISRIHIBS3966-97-00 18:53:00Negative (02/14/2013 13:53:00) [facility] KzvbtgoIEOLDECADD4486-21-53 18:53:000.2[facility]annURINALYSIS 2013-02-14 18:53:0040 mg/dL *NA*(02/14/2013 13:53:00) [facility] [place] GBUJBJPBHX2773-39-06 18:53:00Negative *NA*(02/14/2013 13:53:00) [facility] GsiplkaNDOGRDBGHE7269-44-71 18:53:00Yellow *NA*(02/14/2013 13:53:00) [facility] IsabxodGDMNEDFKIW0484-62-15 18:53:00Negative (02/14/2013 13:53:00) [facility] BmtgnwtMTAOTUWKZK1893-31-71 18:53:000-2 /HPF (02/14/2013 13:53:00) [facility] RuhhizwAUNIKLCKTY2104-48-64 18:53:00Occasional /HPF (02/14/2013 13:53:00) [facility] NzysmewRHFFSELBRY2097-68-84 18:53:00Occasional /LPF (02/14/2013 13:53:00) [facility] DtffmseEXQDPYDWQW0458-48-45 18:53:00Many /LPF *ABN*(02/14/2013 13:53:00) [facility]
== END 2020-08-26 15:20 | disposition home or self-care (01) ==
LOC: FSED 14:35
DX: K60.2 Anal fissure, unspecified (principal); K21.9 Gastro-esophageal reflux disease without esophagitis
CPT/HCPCS: 99283

== ENCOUNTER 2021-03-09 22:23 | Emergency (ER) | payer OTHER, BC ==
[~2021-03-09] VITALS: Ht 170.2 cm; Wt 64.0 kg
[~2021-03-09 22:23] MED LIST: PREDNISONE20 MG PO
[2021-03-09] MEDS ORDERED: ULTRAM 50MG50 MG PO ×2 (23:01→23:03)
[2021-03-09 23:21] VITALS: BP 149/91
== END 2021-03-09 23:29 | disposition home or self-care (01) ==
LOC: FSED 22:45
DX: S83.91XA Sprain of unspecified site of right knee, initial encounter (principal); X50.1XXA Overexertion from prolonged static or awkward postures, initial encounter; Y93.67 Activity, basketball; Y92.310 Basketball court as the place of occurrence of the external cause; F17.210 Nicotine dependence, cigarettes, uncomplicated
CPT/HCPCS: 99282

== ENCOUNTER 2021-06-29 21:14 | Emergency (ER) | payer BC ==
[~2021-06-29] VITALS: Ht 170.2 cm; Wt 64.0 kg
[~2021-06-29 21:14] MED LIST changes: +ULTRAM 50MG50 MG PO
[2021-06-29] MEDS ORDERED: NYSTATIN-TRIAMC15 GM TOP (21:57)
[2021-06-29] MEDS ORDERED: DIFLUCAN150 MG PO (21:57)
[2021-06-29] MEDS ORDERED: NAPROSYN500 MG PO (21:57)
[2021-06-29] MEDS ORDERED: TRAMADOL HCL 50 MG TAB PO ONE (22:00)
[2021-06-29] MEDS ORDERED: TRAMADOL HCL 50 MG TAB ONE (22:17)
== END 2021-06-29 22:27 | disposition home or self-care (01) ==
LOC: FSED 21:40
DX: B35.3 Tinea pedis (principal); Z87.19 Personal history of other diseases of the digestive system
CPT/HCPCS: 99283

== ENCOUNTER 2021-07-07 21:15 | Emergency (ER) | payer BC ==
[~2021-07-07] VITALS: Ht 167.6 cm; Wt 62.6 kg
[~2021-07-07 21:15] MED LIST changes: +DIFLUCAN150 MG PO; +NAPROSYN500 MG PO; +NYSTATIN-TRIAMC15 GM TOP
== END 2021-07-07 22:00 | disposition home or self-care (01) ==
LOC: ER 21:24
DX: L73.9 Follicular disorder, unspecified (principal)
CPT/HCPCS: 99282

== ENCOUNTER 2022-12-04 15:33 | Emergency (ER) | payer BC ==
[~2022-12-04] VITALS: Ht 167.6 cm; Wt 62.6 kg
[2022-12-04] MEDS ORDERED: LORAZEPAM 1 MG TAB PO ONE (16:00)
== END 2022-12-04 16:45 | disposition home or self-care (01) ==
LOC: ER 15:41
DX: R20.2 Paresthesia of skin (principal); T40.715A Adverse effect of cannabis, initial encounter; F41.9 Anxiety disorder, unspecified
CPT/HCPCS: 99282

== ENCOUNTER 2024-04-15 16:36 | Inpatient (IN) | payer BC ==
[~2024-04-15] VITALS: Ht 170.2 cm; Wt 61.2 kg
[~2024-04-15 16:36] MED LIST changes: +BENZONATATE100 MG PO; +FIORICET 50-301 EACH PO; +ONDANSETRON ODT4 MG PO; +TYLENOL325 MG PO
[2024-04-15 17:33] LABS: BASOPHILS % 0.5 % (0.0-1.0); EOSINOPHILS # (AUTO) 0.1 (0.0-0.4); EOSINOPHILS % 1.6 % (0.0-6.0); HEMATOCRIT 43.5 % (38.2-49.6); HEMOGLOBIN 15.2 g/dL (14.0-18.0); LYMPHOCYTES # (AUTO) 1.7 (1.0-3.2); LYMPHOCYTES % 43.5 % (18.0-39.1); MEAN CORPUSCULAR HEMOGLOBIN 31.7 pg (28-32); MEAN CORPUSCULAR HGB CONC 34.9 g/dL (31-35); MEAN CORPUSCULAR VOLUME 90.8 fL (81-99); MONOCYTES # (AUTO) 0.6 (0.2-0.8); MONOCYTES % 15.1 % (4.4-11.3); NEUTROPHILS # (AUTO) 1.5 (2.1-6.9); NEUTROPHILS % 39.3 % (38.7-80.0); PLATELET COUNT 270 x10e3/uL (140-360); RED BLOOD COUNT 4.79 x10e6/uL (4.3-5.7); RED CELL DISTRIBUTION WIDTH 12.1 % (11.7-14.4); WHITE BLOOD COUNT 3.84 x10e3/uL (4.8-10.8)
[2024-04-15 17:51] LABS: ALBUMIN 4.8 g/dL (3.5-5.0); ALBUMIN/GLOBULIN RATIO 1.7 (0.8-2.0); ANION GAP 15.8 mmol/L (8-16); BILIRUBIN,TOTAL 0.8 mg/dL (0.2-1.2); CALCIUM 9.9 mg/dL (8.4-10.2); CREATININE, SERUM 1.17 mg/dL (0.72-1.25); POTASSIUM 3.8 mmol/L (3.5-5.1); TOTAL PROTEIN 7.7 g/dL (6.5-8.1)
[2024-04-15] MEDS ORDERED: IOPAMIDOL 370 MG/ML 100 ML INFUS..BTL INJ ONE (18:12)
[2024-04-15] MEDS: Morphine 4mg INJECTION 4 MG/ML INJ IV ONE (18:18)
[2024-04-15] MEDS: ONDANSETRON HCL INJ 2MG/ML 2ML 2 MG/ML VIAL IV STA (18:18)
[2024-04-15 19:13] VITALS: PULSE 67; RESP 19; TEMP 98.3
[2024-04-15] MEDS: DONNATAL/LIDOCAINE/MAALOX 30 ML SUSP PO ONE (19:18)
[2024-04-15 19:34] LABS: BILIRUBIN,URINE NEGATIVE (NEGATIVE); CLARITY,URINE CLEAR (CLEAR); COLOR,URINE YELLOW (YELLOW); GLUCOSE, URINE NEGATIVE (NEGATIVE); KETONES,URINE TRACE (NEGATIVE); LEUKOCYTE ESTERASE ,URINE NEGATIVE (NEGATIVE); NITRITE,URINE NEGATIVE (NEGATIVE); PH,URINE 5.5 (5 - 7); PROTEIN,URINE DIPSTICK NEGATIVE (NEGATIVE); URINE UROBILINOGEN 0.2 mg/dL (0.2 - 1)
[2024-04-15 19:43] LABS: BACTERIA,URINE FEW /HPF; MUCUS,URINE MODERATE (RARE)
[2024-04-15 20:48] LABS: CREATINE KINASE 223 IU/L (30-200)
[2024-04-15] MEDS: SODIUM CHLORIDE 0.9% 1000ML 1,000 ML IV SCH (20:53)
[2024-04-15 20:56] LABS: TROPONIN I < 0.001 ng/mL (0-0.300)
[2024-04-16] VITALS (8 sets, daily range): BP systolic 103–123; BP diastolic 65–82; PULSE 46–58; RESP 15–16; TEMP 97.9–98.5; O2SAT 97–100
[2024-04-16] MEDS ORDERED: PROTONIX40 MG PO (00:16)
[2024-04-16] MEDS: ONDANSETRON HCL INJ 2MG/ML 2ML 2 MG/ML VIAL IV PRN ×2 (00:27→21:12)
[2024-04-16] MEDS: Morphine 4mg INJECTION 4 MG/ML INJ IV PRN (00:27)
[2024-04-16 05:26] LABS: BASOPHILS % 0.5 % (0.0-1.0); EOSINOPHILS # (AUTO) 0.1 (0.0-0.4); EOSINOPHILS % 3.3 % (0.0-6.0); HEMATOCRIT 38.8 % (38.2-49.6); HEMOGLOBIN 13.3 g/dL (14.0-18.0); LYMPHOCYTES # (AUTO) 1.8 (1.0-3.2); LYMPHOCYTES % 48.2 % (18.0-39.1); MEAN CORPUSCULAR HEMOGLOBIN 31.7 pg (28-32); MEAN CORPUSCULAR HGB CONC 34.3 g/dL (31-35); MEAN CORPUSCULAR VOLUME 92.6 fL (81-99); MONOCYTES # (AUTO) 0.5 (0.2-0.8); MONOCYTES % 12.5 % (4.4-11.3); NEUTROPHILS # (AUTO) 1.3 (2.1-6.9); PLATELET COUNT 222 x10e3/uL (140-360); RED BLOOD COUNT 4.19 x10e6/uL (4.3-5.7); RED CELL DISTRIBUTION WIDTH 12.2 % (11.7-14.4); WHITE BLOOD COUNT 3.69 x10e3/uL (4.8-10.8)
[2024-04-16 05:57] LABS: ALBUMIN/GLOBULIN RATIO 1.8 (0.8-2.0); ANION GAP 12.7 mmol/L (8-16); BILIRUBIN,TOTAL 0.9 mg/dL (0.2-1.2); CREATININE, SERUM 1.09 mg/dL (0.72-1.25); POTASSIUM 3.7 mmol/L (3.5-5.1); TOTAL PROTEIN 6.2 g/dL (6.5-8.1)
[2024-04-16 06:14] LABS: CREATINE KINASE 176 IU/L (30-200)
[2024-04-16 06:22] LABS: TROPONIN I < 0.001 ng/mL (0-0.300)
[2024-04-16] MEDS ORDERED: LORAZEPAM INJ 2 MG/ML VIAL IV PRN (09:30)
[2024-04-16] MEDS ORDERED: ACETAMIN/BUTALBITAL/CAFFEINE TAB PO PRN (09:30)
[2024-04-16] MEDS ORDERED: ACETAMINOPHEN 325 MG TAB PO PRN (09:30)
[2024-04-16] MEDS ORDERED: PROPOFOL IV EMULSION 10 MG/ML 20 ML VIAL ONE (13:00)
[2024-04-16] MEDS ORDERED: METOCLOPRAMIDE HCL 10 MG/2ML VIAL ONE (13:00)
[2024-04-16] MEDS ORDERED: LIDOCAINE HCL 2% LOCAL INJ 5 ML SDV VIAL INJ ONE (13:00)
[2024-04-16 15:21] LABS: CREATINE KINASE 164 IU/L (30-200)
[2024-04-16 15:28] LABS: TROPONIN I < 0.001 ng/mL (0-0.300)
[2024-04-16] MEDS: BENZONATATE 100 MG CAP PO SCH (16:56)
[2024-04-16] MEDS: METOCLOPRAMIDE HCL 10 MG/2ML VIAL IV SCH (22:38)
[2024-04-17] VITALS (8 sets, daily range): BP systolic 109–131; BP diastolic 65–88; PULSE 46–99; RESP 16–18; TEMP 97.9–98.6; O2SAT 100
[2024-04-17] MEDS ORDERED: ONDANSETRON HCL INJ 2MG/ML 2ML 2 MG/ML VIAL IV PRN (01:00)
[2024-04-17] MEDS: METOCLOPRAMIDE HCL 10 MG/2ML VIAL IV SCH (09:11)
[2024-04-18] VITALS (8 sets, daily range): BP systolic 117–156; BP diastolic 71–107; PULSE 58–91; RESP 18; TEMP 97.8–98.6; O2SAT 99–100
[2024-04-18] MEDS ORDERED: BISACODYL 5 MG TAB EC PO ONE (00:30)
[2024-04-18 05:52] LABS: BASOPHILS % 0.3 % (0.0-1.0); EOSINOPHILS # (AUTO) 0.1 (0.0-0.4); EOSINOPHILS % 2.4 % (0.0-6.0); HEMATOCRIT 37.9 % (38.2-49.6); HEMOGLOBIN 12.5 g/dL (14.0-18.0); LYMPHOCYTES # (AUTO) 1.6 (1.0-3.2); LYMPHOCYTES % 41.8 % (18.0-39.1); MEAN CORPUSCULAR HEMOGLOBIN 31.6 pg (28-32); MEAN CORPUSCULAR VOLUME 95.7 fL (81-99); MONOCYTES # (AUTO) 0.4 (0.2-0.8); MONOCYTES % 11.6 % (4.4-11.3); NEUTROPHILS # (AUTO) 1.7 (2.1-6.9); NEUTROPHILS % 43.6 % (38.7-80.0); PLATELET COUNT 185 x10e3/uL (140-360); RED BLOOD COUNT 3.96 x10e6/uL (4.3-5.7); RED CELL DISTRIBUTION WIDTH 11.9 % (11.7-14.4); WHITE BLOOD COUNT 3.78 x10e3/uL (4.8-10.8)
[2024-04-18 06:06] LABS: CALCIUM 9.3 mg/dL (8.4-10.2); CREATININE, SERUM 1.01 mg/dL (0.72-1.25)
[2024-04-18 06:26] LABS: POTASSIUM 3.9 mmol/L (3.5-5.1)
[2024-04-18 08:29] LABS: ANION GAP 17.9 mmol/L (8-16)
[2024-04-18] MEDS: BISACODYL 5 MG TAB EC PO ONE (11:42)
[2024-04-18] MEDS ORDERED: XANAX0.5 MG PO (18:40)
[2024-04-18] MEDS: ALPRAZOLAM 0.5 MG TAB PO PRN (20:09)
[2024-04-18] MEDS: TAMSULOSIN HCL 0.4 MG CAP PO SCH (20:09)
[2024-04-19] VITALS (9 sets, daily range): BP systolic 126–150; BP diastolic 85–97; PULSE 56–74; RESP 17–22; TEMP 97.7–98.6; O2SAT 98–100
[2024-04-19] MEDS ORDERED: FENTANYL CITRATE/PF 100MCG/2 ML INJ ONE (13:01)
[2024-04-19] MEDS ORDERED: MIDAZOLAM HCL 2 MG/2 ML VIAL ONE (13:01)
[2024-04-19] MEDS ORDERED: DEXAMETHASONE SOD PHOS INJ 4 MG/ML SDV ONE (13:19)
[2024-04-19] MEDS ORDERED: LIDOCAINE HCL 2% LOCAL INJ 5 ML SDV VIAL INJ ONE (13:19)
[2024-04-19] MEDS ORDERED: SUCCINYLCHOLINE CHLORIDE 20 MG/ML 10ML VIAL ONE (13:19)
[2024-04-19] MEDS ORDERED: SEVOFLURANE INHAL SOLN 250 ML PEN BTL ONE (13:19)
[2024-04-19] MEDS ORDERED: ONDANSETRON HCL INJ 2MG/ML 2ML 2 MG/ML VIAL ONE (13:19)
[2024-04-19] MEDS ORDERED: GLYCOPYRROLATE INJ 0.2 MG/ML VIAL ONE (13:19)
[2024-04-19] MEDS ORDERED: ROCURONIUM BROMIDE 10 MG/ML 5ML VIAL IV ONE (13:19)
[2024-04-19] MEDS ORDERED: NEOSTIGMINE 1 MG/ML 10ML VIAL ONE (13:19)
[2024-04-19] MEDS ORDERED: KETOROLAC TROMETHAMINE 30 MG/ML VIAL ONE (13:19)
[2024-04-19] MEDS ORDERED: PROPOFOL IV EMULSION 10 MG/ML 20 ML VIAL ONE (13:19)
[2024-04-19] MEDS ORDERED: BUPIVACAINE HCL 0.5% INJ 30 ML VIAL INJ ONE (14:02)
[2024-04-19] MEDS: SODIUM CHLORIDE 0.9% 1000ML 1,000 ML IV SCH (14:45)
[2024-04-19] MEDS: MEPERIDINE HCL INJ 25 MG/ML VIAL ONE (16:10)
[2024-04-19] MEDS: FENTANYL CITRATE/PF 100MCG/2 ML INJ ONE (16:11)
[2024-04-19] MEDS: HYDROCODONE/APAP 5MG-325MG TAB PO PRN (20:10)
[2024-04-19] MEDS: ONDANSETRON HCL INJ 2MG/ML 2ML 2 MG/ML VIAL IV PRN (22:35)
[2024-04-20] VITALS (10 sets, daily range): BP systolic 113–132; BP diastolic 70–95; PULSE 57–75; RESP 16–19; TEMP 98.3–98.8; O2SAT 96–100
[2024-04-20] MEDS: SENNOSIDES 8.6 MG TAB PO SCH (16:55)
[2024-04-20] MEDS: ACETAMINOPHEN/CODEINE 300MG - 30MG TAB PO PRN (18:51)
[2024-04-21 04:00] VITALS: BP 112/68; PULSE 96; RESP 17; TEMP 98.5; O2SAT 100
[2024-04-21 07:39] VITALS: PULSE 74; RESP 16; O2SAT 96
[2024-04-21 09:00] VITALS: BP 120/78; PULSE 61; RESP 18; TEMP 97.8; O2SAT 97
[2024-04-21 09:23] LABS: ANION GAP 14.5 mmol/L (8-16); CALCIUM 8.5 mg/dL (8.4-10.2); CREATININE, SERUM 1.06 mg/dL (0.72-1.25); POTASSIUM 3.5 mmol/L (3.5-5.1)
[2024-04-21] MEDS ORDERED: FLOMAX0.4 MG PO (10:42)
[2024-04-21] MEDS ORDERED: PANTOPRAZOLE SO40 MG PO (10:42)
[2024-04-21] MEDS ORDERED: SENOKOT8.6 MG PO (10:42)
[2024-04-21] MEDS ORDERED: ACETAMINOPHEN-1 EAC3 PO (10:44)
[2024-04-21 11:49] VITALS: BP 148/56; PULSE 63; RESP 19; TEMP 98.6; O2SAT 95
== END 2024-04-21 12:20 | disposition home or self-care (01) | DRG 357 ==
LOC: ER 17:00 → ERHOLD 20:30 → MED/SURG2 22:59 → OBSVTOIN 04-17 08:07
PROVIDERS: ADMIT Internal Medicine; ATTEND Internal Medicine
PROC: 0DB98ZX Excision of Duodenum, Via Natural or Artificial Opening Endoscopic, Diagnostic (ICD-10-PCS; 2024-04-16)
PROC: 0DB78ZX Excision of Stomach, Pylorus, Via Natural or Artificial Opening Endoscopic, Diagnostic (ICD-10-PCS; 2024-04-16)
PROC: 0DB68ZX Excision of Stomach, Via Natural or Artificial Opening Endoscopic, Diagnostic (ICD-10-PCS; 2024-04-16)
PROC: 0FT44ZZ Resection of Gallbladder, Percutaneous Endoscopic Approach (ICD-10-PCS; principal; 2024-04-19 14:01)
DX: K29.80 Duodenitis without bleeding (principal); K81.2 Acute cholecystitis with chronic cholecystitis; K29.70 Gastritis, unspecified, without bleeding; F41.9 Anxiety disorder, unspecified; E86.0 Dehydration; K21.00 Gastro-esophageal reflux disease with esophagitis, without bleeding; K44.9 Diaphragmatic hernia without obstruction or gangrene; M19.90 Unspecified osteoarthritis, unspecified site; Z11.52 Encounter for screening for COVID-19; Z88.8 Allergy status to other drugs, medicaments and biological substances; Z88.6 Allergy status to analgesic agent; F17.290 Nicotine dependence, other tobacco product, uncomplicated
CPT/HCPCS: 36415; 43239; 74177; 78227; 80048; 80053; 81001; 82550; 83690; 84484; 85025; 88304; 88305; 88312; 94799; 96361; 99252; 99284; A9537; G0378; J0330; J0690; J1100; J1885; J2001; J2175; J2250; J2270; J2405; J2470; J2710; J2765; J7030; Q9967; U0002